=== PATIENT | female | born 1965 | race Two or more races ===

== ENCOUNTER 2024-11-12 20:43 | Emergency (ER) | payer MEDICAID, SELFPAY ==
[2024-11-12 20:47] VITALS: PULSE 74; RESP 16; O2SAT 98
[2024-11-12 20:49] VITALS: BP 106/73; PULSE 72; RESP 17; TEMP 36.9; O2SAT 94
[2024-11-12 20:50] VITALS: BMI 38.3
--- NOTE | 2024-11-12 20:59 | EKG_ITS ---
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
--- NOTE | 2024-11-12 21:03 | XR_ITS ---
Examination: AP chest single view Technique: AP portable upright chest single view Exam date and time: November 12, 2024 2137 hrs. Comparison March 17, 2024 Indications: Onset shortness of breath today. Findings: Stable 18 mm pulmonary nodule left upper lobe Mild enlargement cardiac contour No lobar pneumonia or pulmonary edema Prominent osteopenia Impression: Mild enlargement cardiac contour No interval pneumonia or pulmonary edema
[2024-11-12 21:44] LABS: Basophils % (Auto) 0 % (0-2.5); Eosinophils # (Auto) 0.1 Thou/mm3 (0.0-0.5); Eosinophils % (Auto) 2 % (0-10); Hematocrit 33.8 % (36.0-46.0); Hemoglobin 11.3 g/dL (12.0-16.0); Immature Granulocytes % (Auto) 0 % (0-0); Immature Granulocytes Auto 0.02 Thou/mm3 (0.00-0.00); Lymphocytes # (Auto) 1.8 Thou/mm3 (1.0-4.8); Lymphocytes % (Auto) 25 % (10-50); Mean Corpuscular HGB Conc 33.4 g/dl (31.0-37.0); Mean Corpuscular Hemoglobin 32.8 pg (25.0-35.0); Mean Corpuscular Volume 98 fL (80-100); Monocytes # (Auto) 0.6 Thou/mm3 (0.0-0.8); Monocytes % (Auto) 8 % (0-12); Neutrophils # (Auto) 4.7 Thou/mm3 (1.8-7.7); Neutrophils % (Auto) 65 % (37-80); Nucleated Red Blood Cell % 0 /100 WBC (0); Platelet Count 169 Thou/mm3 (140-440); RDW Standard Deviation 44.1 fL (36.4-46.3); Red Blood Count 3.44 Miln/mm3 (4.00-5.20); White Blood Count 7.3 Thou/mm3 (3.6-11.0)
[2024-11-12 22:04] LABS: Troponin I < 0.020 ng/mL (0.0-0.045)
[2024-11-12 22:06] LABS: Alanine Aminotransferase 23 U/L (10-49); Albumin, Serum 4.1 gm/dL (3.5-5.0); Albumin/Globulin Ratio 1.1 (1.2-2.2); Alkaline Phosphatase 109 U/L (46-116); Anion Gap 9 (7-16); Aspartate Amino Transferase 28 U/L (0-34); BUN/Creatinine Ratio 7 Ratio (12-20); Bilirubin,Total < 0.2 mg/dL (0.3-1.2); Blood Urea Nitrogen 25 mg/dL (9-23); Calcium 9.3 mg/dL (8.3-10.6); Calcium (Corrected) 9.3 mg/dL (8.5-10.1); Carbon Dioxide 30.5 mMol/L (20.0-31.0); Chloride 100 mMol/L (98-107); Creatinine (Component) 3.7 mg/dL (0.6-1.3); Estimated Creatinine Clearance 17.1 mL/min (>60); Globulin 3.6 gm/dL (2.3-3.5); Glucose 187 mg/dL (74-106); Osmolality,Calculated 286 (275-295); Potassium 4.4 mMol/L (3.4-5.1); Sodium 139 mMol/L (136-145); Total Protein 7.7 gm/dL (5.7-8.2); eGFR 14 See Note
--- NOTE | 2024-11-12 22:18 | PD.EDCHEST ---
ED Chest Pain RME/HPI General Chief Complaint: Chest Pain Stated Complaint: CHEST PAIN Time Seen by Provider: 11/12/24 20:49 Arrival date/time: 11/12/24 20:43 RME / HPI RME / HPI narrative: This section includes all my notes and documentations, including HPI, PE, and ED course. David Lu MD HPI: 59-year-old female here to be evaluated with chest pain about 12 hours ago that lasted for about a minute. Currently, she has no chest pain. No shortness of breath. No other complaints. ROS: All negative except as documented in HPI. Physical Exam: General: Alert and oriented. No acute distress when remaining still. Eyes: Conjunctivae and lids clear. ENT: No nasal congestion. Neck: Supple. Heart: RRR. Lungs: No respiratory distress. Good air movement. No rhonchi, wheezing, rales. Abdomen: Soft and nontender. Normal bowel sounds. No distension. No rebound or guarding. Back: No CVA tenderness. Skin: Warm and dry. Neuro: Alert and oriented X 3. I reviewed all diagnostic test results. My interpretation of the EKG is sinus rhythm with no acute ST?T changes. My interpretation of the chest x-ray is no acute findings. Blood tests unremarkable, including no troponin. At this point, diagnoses include brief chest pain about 12 hours ago. Recommended more outpatient cardiac workup. Based on my best medical judgment, made decision no further evaluation or treatment indicated at this time. Patient understands and agrees to the discharge instructions customized and printed, see below. Discharge instructions from Dr. Lu: 1. After extensive evaluation, there is no life-threatening condition.? Such as heart attack. 2. Your pain can be originating from the chest wall and not from an internal organ.? The chest wall has many joints and muscles between the ribs, so sprains and strains are common.?? 3. Apply ice or heat if helpful.? Tylenol/ibuprofen as needed. 4. See a private doctor on 11/14/2024 for recheck. Ask to review all test results and official radiology reports, to make sure you receive all necessary follow-ups and monitoring, including repeating kidney function. To make sure there is no serious underlying heart condition, ask to help you get more tests for your heart that cannot be done here in the ER.? Such as Holter Monitor (cardiac monitoring at home from a day to even a month), heart stress test (on treadmill or with medication), echocardiogram (imaging of your heart structures), heart catherization (checking for blockages in your heart arteries), and a referral to see a Local Announcer.? 5. Seek immediate medical care with worsening or with any concerns.?? David Lu MD Related Data Home Medications ?Medication ?Instructions ?Recorded ?Confirmed atorvastatin 40 mg tablet 40 mg PO HS 12/10/22 09/02/23 calcium acetate(phosphat bind) 667 667 mg PO TID 12/10/22 09/02/23 mg tablet hydroxyzine HCl 25 mg tablet 50 mg PO QID 12/10/22 09/02/23 rivaroxaban 20 mg tablet (Xarelto) 20 mg PO DAILY 12/10/22 09/02/23 acetaminophen 325 mg tablet 650 mg PO PRN PRN Mild Pain (Scale 01/10/23 09/02/23 (Tylenol) Score 1-4) melatonin 3 mg capsule 3 mg PO HS PRN Insomnia 01/10/23 09/02/23 B-complex with vitamin C 1 tab PO QDAY 03/25/23 09/02/23 clonidine HCl 0.1 mg tablet 0.1 mg PO HS 03/25/23 09/02/23 ergocalciferol (vitamin D2) 62.5 See Rx Instructions .Route .COMPLEX 03/25/23 09/02/23 mcg (2,500 unit) capsule hydralazine 100 mg tablet 100 mg PO TID 03/25/23 09/02/23 insulin glargine 100 unit/mL (3 10 unit subcut QPM 03/25/23 09/02/23 mL) subcutaneous pen (Lantus Solostar U-100 Insulin) ondansetron HCl 4 mg tablet 4 mg PO Q6H PRN Nausea And Vomiting 03/25/23 09/02/23 tramadol 50 mg tablet 50 mg PO [id number] PRN Moderate Pain 03/25/23 09/02/23 (Scale Score 5-6) carvedilol 3.125 mg tablet (Coreg) 3.125 mg PO BID 09/02/23 09/02/23 docusate sodium 100 mg tablet 100 mg PO QDAY 09/02/23 09/02/23 insulin aspart U-100 100 unit/mL 1 sliding scale dose subcut 09/02/23 09/02/23 subcutaneous cartridge USEASDIRECTD Previous Rx's ?Medication ?Instructions ?Recorded amlodipine 10 mg tablet (Norvasc) 10 mg PO QDAY #30 tabs 12/11/22 meclizine 25 mg tablet 25 mg PO TID PRN Vertigo #90 tabs 12/18/22 cephalexin 500 mg capsule 500 mg PO BID #14 caps 03/19/24 cephalexin 500 mg capsule 500 mg PO BID #14 caps 03/19/24 ondansetron 4 mg disintegrating 4 mg PO Q8H PRN nausea and 03/19/24 tablet vomiting #10 tabs Allergies Allergy/AdvReac Type Severity Reaction Status Date / Time levofloxacin Allergy Mild Vomiting Verified 11/12/24 21:01 Course Quality Measures none Orders Category Date Time Status Bedside COVID-19 Antigen Test NOW Care 11/12/24 21:03 Completed Bedside Influenza A&B Antigen Test NOW Care 11/12/24 21:03 Completed EKG (ED ONLY) *Do not use* NOW Care 11/12/24 20:59 Completed Straight [In and Out Catheter] X1 Care 11/12/24 21:03 Completed EKG (ED Only) Stat Exams 11/12/24 20:59 Draft XR chest 1V portable Stat Exams 11/12/24 21:03 Completed CBC Stat Lab 11/12/24 21:30 Completed CMP [Comprehensive Metabolic Panel] Stat Lab 11/12/24 21:30 Completed Magnesium Stat Lab 11/12/24 21:30 Completed Troponin I Stat Lab 11/12/24 21:30 Completed Vital Signs Vital signs: Vital Signs Temperature 98.4 F 11/12/24 20:49 Pulse Rate 72 11/12/24 20:49 Respiratory Rate 17 11/12/24 20:49 Blood Pressure 106/73 11/12/24 20:49 Pulse Oximetry (%) 94 L 11/12/24 20:49 Oxygen Delivery Method Room Air 11/12/24 20:49 Chest Pain Patient data [facility], EMS form and [facility] Clinical information provided by:: patient and EMS Social determinants that could affect healthcare access:: other (specify) (detention patient) Patient has the following chronic illnesses:: Hypertension and diabetes and chronic renal failure How is presenting disease/condition affected by chronic disease/condition?: uneffected by Evaluation data The following diagnostics were reviewed and interpreted by me:: lab results, radiology exam(s) and EKG tracing(s) (My interpretation of the EKG: NSR (63 bpm) with no ST-T changes. David Lu MD) Lab and/or radiology exams considered but not ordered:: None Interpretation Summary: Normal diagnostics Medications / Prescriptions Medications or Prescriptions considered but not ordered:: None Medication administrations:: None Consultations Consultation(s) initiated? (list below): No Diagnosis Chest Pain Differential Diagnosis: pneumothorax, stable angina, unstable angina pectoris, atypical chest pain, st elevation myocardial infarction and costochondritis Most likely diagnosis given after review of the tests above:: Brief chest pain of unclear etiology Admission Indicated Admission indicated?: not indicated Explain why admission is indicated or not indicated:: No admission criteria Admission Request Was there a request for admission?: No Disposition Plan Disposition Plan: Discharge Discharge Attestation Discharge Attestation: The patient and all family members were given an opportunity to ask questions and understood the discharge instructions. Discharge instructions specifically effects, indications for sooner follow up or return to the emergency department, and the expected course of current diagnosis. Patient condition: Stable Discharge Plan Plan Patient Disposition: HOME (Self Care) Prescriptions/Referrals Prescriptions/Med Rec: No Action atorvastatin 40 mg tablet 40 mg PO HS calcium acetate(phosphat bind) 667 mg tablet 667 mg PO TID hydroxyzine HCl 25 mg tablet 50 mg PO QID Xarelto 20 mg tablet 20 mg PO DAILY amlodipine [Norvasc] 10 mg tablet 10 mg PO QDAY Qty: 30 0RF meclizine 25 mg Tablet 25 mg PO TID MDD 100mg PRN (Reason: Vertigo) Qty: 90 0RF acetaminophen [Tylenol] 325 mg Tablet 650 mg PO PRN PRN (Reason: Mild Pain (Scale Score 1-4)) melatonin 3 mg Capsule 3 mg PO HS PRN (Reason: Insomnia) cephalexin 500 mg capsule 500 mg PO BID Qty: 14 0RF ondansetron 4 mg tablet,disintegrating 4 mg PO Q8H PRN (Reason: nausea and vomiting) Qty: 10 0RF cephalexin 500 mg capsule 500 mg PO BID Qty: 14 0RF clonidine HCl 0.1 mg Tablet 0.1 mg PO HS tramadol 50 mg Tablet 50 mg PO [id number] PRN (Reason: Moderate Pain (Scale Score 5-6)) hydralazine 100 mg Tablet 100 mg PO TID B-complex with vitamin C Tablet 1 tab PO QDAY insulin glargine [Lantus Solostar U-100 Insulin] 100 unit/mL (3 mL) Insulin Pen 10 unit SUBCUT QPM ergocalciferol (vitamin D2) 62.5 mcg (2,500 unit) Capsule See Rx Instructions .ROUTE .COMPLEX Rx Instructions: 62.5 mcg orally DAILY ON SUNDAYS ondansetron HCl 4 mg Tablet 4 mg PO Q6H PRN (Reason: Nausea And Vomiting) carvedilol [Coreg] 3.125 mg Tablet 3.125 mg PO BID Rx Instructions: must administer with a meal/food docusate sodium 100 mg Tablet 100 mg PO QDAY insulin aspart U-100 100 unit/mL Cartridge 1 sliding scale dose SUBCUT USEASDIRECTD Problem List Clinical Impression: Chest pain Patient/Caregiver Discharge Instructions Discharge Activity: activity as tolerated Education Materials: ED Chest Pain, Uncertain Cause Additional Instructions: Discharge instructions from Dr. Lu: 1. After extensive evaluation, there is no life-threatening condition.? Such as heart attack. 2. Your pain can be originating from the chest wall and not from an internal organ.? The chest wall has many joints and muscles between the ribs, so sprains and strains are common.?? 3. Apply ice or heat if helpful.? Tylenol/ibuprofen as needed. 4. See a private doctor on 11/14/2024 for recheck. Ask to review all test results and official radiology reports, to make sure you receive all necessary follow-ups and monitoring, including repeating kidney function. To make sure there is no serious underlying heart condition, ask to help you get more tests for your heart that cannot be done here in the ER.? Such as Holter Monitor (cardiac monitoring at home from a day to even a month), heart stress test (on treadmill or with medication), echocardiogram (imaging of your heart structures), heart catherization (checking for blockages in your heart arteries), and a referral to see a Local Announcer.? 5. Seek immediate medical care with worsening or with any concerns.?? Print Language: Tongan Stand Alone Forms: [employer] Award Info., Patient Portal Info Letter
[2024-11-12 23:14] VITALS: BP 149/72; PULSE 62; RESP 18; TEMP 36.8; O2SAT 98
== END 2024-11-13 00:10 | disposition home or self-care (01) ==
PROVIDERS: Emergency Provider Emergency Medicine
DX: R07.9 Chest pain, unspecified (principal); I12.9 Hypertensive chronic kidney disease with stage 1 through stage 4 chronic kidney disease, or unspecified chronic kidney disease; E11.22 Type 2 diabetes mellitus with diabetic chronic kidney disease; N18.9 Chronic kidney disease, unspecified
CPT/HCPCS: 36415; 71045; 80053; 81001; 83735; 84484; 85025; 87400; 87811; 93005; 99283

== ENCOUNTER 2025-01-29 07:59 | Emergency (ER) | payer MEDICAID, SELFPAY ==
[2025-01-29 08:02] VITALS: BP 152/70; PULSE 74; RESP 17; TEMP 37.7; O2SAT 94
[2025-01-29 08:07] VITALS: PULSE 76; RESP 20; O2SAT 98
--- NOTE | 2025-01-29 08:17 | PC.NURSE ---
Patient BIBA from SNF due to [place] and nausea since yesterday. Patient states they only gave her meclizine, that gave her relief, yesterday.A&O X4 GCS 15. Patient has hx of CVA, and is legally blind. POC updated.
--- NOTE | 2025-01-29 08:31 | PD.EDHA ---
ED Headache RME/HPI General Chief Complaint: Headache Stated Complaint: HEADACHE Time Seen by Provider: 01/29/25 08:23 Arrival date/time: 01/29/25 07:59 Limitations: no limitations RME / HPI RME / HPI Narrative: 60 year old female with history of CVA, CKD, hypertension and diabetes, presented to the ER BIBA with a chief complaint of [place] accompanied with pressure in front of head, back of head and neck. Per patient, she had been experiencing a new onset pressure in the front/back of the head and neck since yesterday on 01/28/25. Patient stated she has been vomiting due to her pressure and has mucus drainage from her throat and nose when leaning her head forward. Patient also had a complaint of shadows in her left eye but state she is legally blind. Patient denies previous history of falls and migraines. Patient denies fever, cough and chest pain. Patient state no other complaints. Related Data Home Medications ?Medication ?Instructions ?Recorded ?Confirmed atorvastatin 40 mg tablet 40 mg PO HS 12/10/22 09/02/23 calcium acetate(phosphat bind) 667 667 mg PO TID 12/10/22 09/02/23 mg tablet hydroxyzine HCl 25 mg tablet 50 mg PO QID 12/10/22 09/02/23 rivaroxaban 20 mg tablet (Xarelto) 20 mg PO DAILY 12/10/22 09/02/23 acetaminophen 325 mg tablet 650 mg PO PRN PRN Mild Pain (Scale 01/10/23 09/02/23 (Tylenol) Score 1-4) melatonin 3 mg capsule 3 mg PO HS PRN Insomnia 01/10/23 09/02/23 B-complex with vitamin C 1 tab PO QDAY 03/25/23 09/02/23 clonidine HCl 0.1 mg tablet 0.1 mg PO HS 03/25/23 09/02/23 ergocalciferol (vitamin D2) 62.5 See Rx Instructions .Route .COMPLEX 03/25/23 09/02/23 mcg (2,500 unit) capsule hydralazine 100 mg tablet 100 mg PO TID 03/25/23 09/02/23 insulin glargine 100 unit/mL (3 10 unit subcut QPM 03/25/23 09/02/23 mL) subcutaneous pen (Lantus Solostar U-100 Insulin) ondansetron HCl 4 mg tablet 4 mg PO Q6H PRN Nausea And Vomiting 03/25/23 09/02/23 tramadol 50 mg tablet 50 mg PO [id number] PRN Moderate Pain 03/25/23 09/02/23 (Scale Score 5-6) carvedilol 3.125 mg tablet (Coreg) 3.125 mg PO BID 09/02/23 09/02/23 docusate sodium 100 mg tablet 100 mg PO QDAY 09/02/23 09/02/23 insulin aspart U-100 100 unit/mL 1 sliding scale dose subcut 09/02/23 09/02/23 subcutaneous cartridge USEASDIRECTD Previous Rx's ?Medication ?Instructions ?Recorded amlodipine 10 mg tablet (Norvasc) 10 mg PO QDAY #30 tabs 12/11/22 meclizine 25 mg tablet 25 mg PO TID PRN Vertigo #90 tabs 12/18/22 cephalexin 500 mg capsule 500 mg PO BID #14 caps 03/19/24 cephalexin 500 mg capsule 500 mg PO BID #14 caps 03/19/24 ondansetron 4 mg disintegrating 4 mg PO Q8H PRN nausea and 03/19/24 tablet vomiting #10 tabs gabapentin 300 mg capsule 300 mg PO QDAY #14 caps 01/29/25 prednisone 10 mg tablet See Taper PO QDAY #24 tabs 01/29/25 Allergies Allergy/AdvReac Type Severity Reaction Status Date / Time levofloxacin Allergy Mild Vomiting Verified 11/12/24 21:01 Review of Systems Review of Systems Systems Reviewed: All systems reviewed, normal except as documented Narrative Review of Systems: Gen: No fever, no chills, no weight loss EYES: No discharge, + shadowed visual changes in left eye (legally blind), no pain HEENT: No ear pain, +mucus drainage from throat and nose, no sore throat, +pressure in front/back of head and neck PULM: No shortness of breath, no cough, no congestion CV: No chest pain, no dyspnea on exertion, no palpitations GI: +nausea, +vomiting, no diarrhea, no pain, no constipation : No frequency, no urgency, no dysuria Musc/skel: No joint pain, no back pain Skin: No rash Psyc: No hallucinations, no depression Heme/Lymph: No easy bleeding or bruising tendencies Neuro: No weakness, + headache with pressure Past Medical History Past Medical History NEUROLOGIC: Positive Neurological Disorders and Cerebrovascular Accident (mild left sided weakness) CARDIAC: Positive Cardiac Disorders, Angina, Hypercholesterolemia, Congestive Heart Failure and Hypertension RESPIRATORY: Positive Pneumonia GENITOURINARY: Positive Genitourinary Disorders, Renal Disease and Dialysis (MWF) REPRODUCTIVE: Positive Previous Pregnancies MUSCULOSKELETAL: Positive Musculoskeletal Disorders, Arthritis, Rheumatoid Arthritis and Osteoporosis ENT: Positive Blind (Bilateral, sees shadows only) and Deafness (Left) ENDOCRINE: Positive Endocrine Disorders and Diabetes Mellitus Type 2 HEMATOLOGIC: Positive Blood Disorders and Anemia PSYCHO/SOCIAL: Positive Depression and Anxiety OTHER HISTORY: Positive Hospitalization, Blood Transfusions, Chicken Pox and Measles Family History FAMILY HISTORY: Positive Family Cardiac Disorders Surgical History SURGICAL: Positive Open Reduction Internal Fixation (Left thigh has a metal plate); Negative Mastectomy Social History SMOKING STATUS: Never smoker SUBSTANCE USE: former substance user (quit 2 years ago (nonspecific on what she used)) ED Exam General Limitations: Present no limitations General appearance: Present alert and in no apparent distress Head Head exam: Present atraumatic Eye Eye exam: Present normal appearance, PERRL and EOMI; Absent nystagmus ENT ENT exam: Present normal exam, normal oropharynx and mucous membranes moist Neck Neck exam: Present normal inspection, full ROM and trachea midline; Absent meningismus Chest Chest inspection: Present normal inspection and symmetric chest wall rise Respiratory Respiratory exam: Present normal lung sounds bilaterally Cardiovascular Cardiovascular exam: Present regular rate, normal rhythm and normal heart sounds Abdominal Exam Abdominal exam: Present soft and normal bowel sounds Extremities Exam Extremities exam: Present normal inspection and full ROM Back Exam Back exam: Present normal inspection and full ROM Neurological Exam Neurological exam: Present alert, oriented X3, CN II-XII intact and reflexes normal; Absent motor sensory deficit Psychiatric Psychiatric exam: Present normal affect and normal mood Skin Skin exam: Present warm, dry, intact and normal color Course Quality Measures none Orders Category Date Time Status Discharge Routine Discharge 01/29/25 11:[address] head/brain wo con Stat Exams 01/29/25 08:31 Completed CBC Stat Lab 01/29/25 09:58 Completed CMP [Comprehensive Metabolic Panel] Stat Lab 01/29/25 09:58 Completed ESR [Sed Rate (ESR)] Stat Lab 01/29/25 09:58 Completed UA, C/S IF [Urinalysis, C/S if Indicated] Stat Lab 01/29/25 12:44 Completed Urine Culture Stat Lab 01/29/25 12:44 Received Acetaminophen Ivpb [Ofirmev Inj] Med 01/29/25 11:18 Discontinued 1,000 mg in 100 ml IV X1 DiphenhydrAMINE INJ [Benadryl Inj] Med 01/29/25 08:36 Discontinued 25 mg IM X1 ONE Metoclopramide Inj [Reglan Inj] Med 01/29/25 08:45 Active 5 mg IM Q8HR dexAMETHasone TAB [Decadron Tab] Med 01/29/25 11:18 Discontinued 8 mg PO X1 ONE hydrALAZINE INJ [Apresoline Inj] Med 01/29/25 16:47 Discontinued 20 mg IV X1 ONE Reevaluation(s) Reevaluation #1: Patient is still in pain. Pain medication of IV-Tylenol will be administered. Patient will be discharged with Gabapentin. Time: 11:16 Vital Signs Vital signs: Vital Signs Temperature 99.8 F 01/29/25 08:02 Pulse Rate 74 01/29/25 08:02 Respiratory Rate 17 01/29/25 08:02 Blood Pressure 152/70 H 01/29/25 08:02 Pulse Oximetry (%) 94 L 01/29/25 08:02 Oxygen Delivery Method Room Air 01/29/25 08:02 Headache MDM Narrative MDM Narrative:: IAn am scribing for and in the presence of Dr. Gutierres. Patient's symptoms of following Visual symptoms with decreased vision Positive balance of the right eye Headache on the right side Tenderness in the right temporal area Elevated sed rate at 71 History of bilateral lung cavities which is undiagnosed All the symptoms pointing toward possible involvement of the vascular structure in the form of giant cell arthritis All could be other forms of arthritis I think is worth to try to do a temporal artery biopsy Also plan on steroid to see how she responds to steroid She was given already a dose of steroid today in the form of 8 mg of dexamethasone I spoke with the resident on-call today and she will be evaluated in the ER to make a final decision determination whether to admit overnight I think is worth it to admit her and obtain a biopsy of the temporal artery and put on a tapered dose of steroid before discharging her Final assessment Possible giant cell arthritis ESRD on hemodialysis Decreased vision and visual symptoms in the right eye I discussed the case with the residents who discussed the case with the attending on-call. Because we do not have capacity to biopsy of the temporal artery here Other alternative was to discharge patient on steroids and have her do this as an outpatient Patient was given hydralazine 20 mg IV to control blood pressure as she has been here in the ER for long time Get a chance to take her medications Also she was given the first dose of dexamethasone today She was given total of 8 days of prednisone starting with 60 mg a day for 2 days and then 40 mg a day for 2 days and then 20 g a day for 2 days and then 10 mg a day for 2 days Patient advised to follow-up with her physician to get a biopsy of the temporal artery Also this can be treated with outpatient with sed rate evaluation Does not have to be a biopsy specially with her condition specially that she has issues with her vision and mobility Could be difficult for her to do the biopsy Patient probably need to be on low-dose prednisone for a long time Patient was discharged good condition Patient data External records reviewed:: [facility] previous records Clinical information provided by:: patient Social determinants that could affect healthcare access:: none Patient has the following chronic illnesses:: CVA, CKD, hypertension and diabetes How is presenting disease/condition affected by chronic disease/condition?: exacerbated by Evaluation data The following diagnostics were reviewed and interpreted by me:: lab results and radiology exam(s) Lab and/or radiology exams considered but not ordered:: none Interpretation Summary: Ordering Physician: Alethea Gutierres MD Date of Service: 01/29/25 Procedure(s): CT head/brain wo con Accession Number(s): [id number] cc: Alethea Gutierres MD; Rickie Amanda MD; Augusto Ball MD~ Examination: CT brain head without contrast. 2-D sagittal coronal reconstructions Date and time of exam:January 29, 2025, 0912 hrs. Indications: Onset dizziness beginning this morning CTDI: vol (mGy):51 DLP: (mGycm):1055 Technique: Multiple CT axial sections of the brain have been obtained, 5 mm slice thickness. Contrast has not been administered. 2-D sagittal, coronal reconstructions have been obtained Low dose protocols were performed. One or more of the following dose reduction techniques were used; automated exposure control, adjustment of the mA and/or KV according to patient size, use of iterative reconstruction technique. Findings: No significant ventricular enlargement. Intra-axial or extra-axial hemorrhage density is not seen. No mass effect or midline shift Basal cisterns are not remarkable. Fourth ventricle is midline. Cranial vault intact. Impression: Negative for acute hemorrhage, mass effect or midline shift Advise clinical correlation and follow-up accordingly Dictated By: Augusto Ball MD Signed By: <Electronically signed by Augusto Ball MD in [place]> 01/29/25 0930 Medications / Prescriptions Medications or Prescriptions considered but not ordered:: none Medication administrations:: Medication Administration History Metoclopramide HCl (Metoclopramide Inj 5 Mg/Ml Vial 2 Ml) 5 mg IM Q8HR OLY; Protocol Stop: 02/28/25 08:44 Last Admin: 01/29/25 08:54 Dose: 5 mg Documented By: ER Discontinued Medications Dexamethasone (Dexamethasone 4 Mg Tablet) 8 mg PO X1 ONE; Protocol Stop: 01/29/25 11:19 Last Admin: 01/29/25 12:11 Dose: 8 mg Documented By: ER Diphenhydramine HCl (Diphenhydramine Inj 50 Mg/Ml Vial) 25 mg IM X1 ONE Stop: 01/29/25 08:37 Last Admin: 01/29/25 08:54 Dose: 25 mg Documented By: ER Hydralazine HCl (Hydralazine Inj 20 Mg/Ml Vial) 20 mg IV X1 ONE Stop: 01/29/25 16:48 Acetaminophen (Ofirmev Inj) 1,000 mg in 100 mls @ 250 mls/hr IV X1 ONE Stop: 01/29/25 11:41 Last Infusion: 01/29/25 12:38 Dose: Infused Documented By: Admin: 01/29/25 12:14 Dose: 250 mls/hr Documented By: ER see above. (if any) Consultations Consultation(s) initiated? (list below): No Diagnosis Differential diagnosis headache: migraine, tension headache, subarachnoid hemorrhage, headache and sinusitis Most likely diagnosis given after review of the tests above:: migraine Admission Indicated Admission indicated?: not indicated Admission Request Was there a request for admission?: No Disposition Plan Disposition Plan: Discharge Discharge Attestation Discharge Attestation: The patient and all family members were given an opportunity to ask questions and understood the discharge instructions. Discharge instructions specifically effects, indications for sooner follow up or return to the emergency department, and the expected course of current diagnosis. Patient condition: Stable Discharge Plan Plan Patient Disposition: HOME (Self Care) Patient condition on transfer: Stable Prescriptions/Referrals Prescriptions/Med Rec: New gabapentin 300 mg capsule 300 mg PO QDAY Qty: 14 0RF prednisone 10 mg tablet See Taper PO QDAY Qty: 24 0RF Taper: Prednisone Taper 60 mg DAILY for 2 Days and 0 Hour 40 mg DAILY for 2 Days and 0 Hour 20 mg DAILY for 2 Days and 0 Hour 10 mg DAILY for 2 Days and 0 Hour Rx Instructions: 6 tablets a day for 2 days then 4 tabs a day for 2 days then 2 tablets a day for 2 days then 1 tablet a day for 2 days No Action atorvastatin 40 mg tablet 40 mg PO HS calcium acetate(phosphat bind) 667 mg tablet 667 mg PO TID hydroxyzine HCl 25 mg tablet 50 mg PO QID Xarelto 20 mg tablet 20 mg PO DAILY amlodipine [Norvasc] 10 mg tablet 10 mg PO QDAY Qty: 30 0RF meclizine 25 mg Tablet 25 mg PO TID MDD 100mg PRN (Reason: Vertigo) Qty: 90 0RF acetaminophen [Tylenol] 325 mg Tablet 650 mg PO PRN PRN (Reason: Mild Pain (Scale Score 1-4)) melatonin 3 mg Capsule 3 mg PO HS PRN (Reason: Insomnia) cephalexin 500 mg capsule 500 mg PO BID Qty: 14 0RF ondansetron 4 mg tablet,disintegrating 4 mg PO Q8H PRN (Reason: nausea and vomiting) Qty: 10 0RF cephalexin 500 mg capsule 500 mg PO BID Qty: 14 0RF clonidine HCl 0.1 mg Tablet 0.1 mg PO HS tramadol 50 mg Tablet 50 mg PO [id number] PRN (Reason: Moderate Pain (Scale Score 5-6)) hydralazine 100 mg Tablet 100 mg PO TID B-complex with vitamin C Tablet 1 tab PO QDAY insulin glargine [Lantus Solostar U-100 Insulin] 100 unit/mL (3 mL) Insulin Pen 10 unit SUBCUT QPM ergocalciferol (vitamin D2) 62.5 mcg (2,500 unit) Capsule See Rx Instructions .ROUTE .COMPLEX Rx Instructions: 62.5 mcg orally DAILY ON SUNDAYS ondansetron HCl 4 mg Tablet 4 mg PO Q6H PRN (Reason: Nausea And Vomiting) carvedilol [Coreg] 3.125 mg Tablet 3.125 mg PO BID Rx Instructions: must administer with a meal/food docusate sodium 100 mg Tablet 100 mg PO QDAY insulin aspart U-100 100 unit/mL Cartridge 1 sliding scale dose SUBCUT USEASDIRECTD Referrals: Rickie Amanda MD [Primary Care Provider] - In 1 week Problem List Clinical Impression: Migraine, Temporal arteritis syndrome, Hypertension Patient/Caregiver Discharge Instructions Discharge Activity: activity as tolerated Education Materials: Migraines and Cluster Headaches, Hypertension Dc, ED Temporal Arteritis Print Language: German Stand Alone Forms: [employer] Award Info., Patient Portal Info Letter
[2025-01-29] MEDS: DiphenhydrAMINE INJ 50 MG/ML VIAL 25 MG IM (08:54)
[2025-01-29] MEDS: METOCLOPRAMIDE INJ 5 MG/ML VIAL 2 ML IM (08:54)
[2025-01-29 10:13] LABS: Basophils % (Auto) 0 % (0-2.5); Eosinophils % (Auto) 0 % (0-10); Hematocrit 34.7 % (36.0-46.0); Hemoglobin 11.8 g/dL (12.0-16.0); Immature Granulocytes % (Auto) 1 % (0-0); Immature Granulocytes Auto 0.02 Thou/mm3 (0.00-0.00); Lymphocytes # (Auto) 0.8 Thou/mm3 (1.0-4.8); Lymphocytes % (Auto) 26 % (10-50); Mean Corpuscular Hemoglobin 34.7 pg (25.0-35.0); Mean Corpuscular Volume 102 fL (80-100); Monocytes # (Auto) 0.2 Thou/mm3 (0.0-0.8); Monocytes % (Auto) 6 % (0-12); Neutrophils # (Auto) 2.2 Thou/mm3 (1.8-7.7); Neutrophils % (Auto) 67 % (37-80); Nucleated Red Blood Cell % 0 /100 WBC (0); Platelet Count 165 Thou/mm3 (140-440); RDW Standard Deviation 52.8 fL (36.4-46.3); White Blood Count 3.3 Thou/mm3 (3.6-11.0)
[2025-01-29 10:55] LABS: Alanine Aminotransferase 8 U/L (10-49); Albumin, Serum 3.5 gm/dL (3.5-5.0); Albumin/Globulin Ratio 0.8 (1.2-2.2); Alkaline Phosphatase 84 U/L (46-116); Anion Gap 11 (7-16); Aspartate Amino Transferase 29 U/L (0-34); BUN/Creatinine Ratio 6 Ratio (12-20); Bilirubin,Total 0.3 mg/dL (0.3-1.2); Blood Urea Nitrogen 27 mg/dL (9-23); Calcium 8.3 mg/dL (8.3-10.6); Calcium (Corrected) 8.7 mg/dL (8.5-10.1); Carbon Dioxide 28.3 mMol/L (20.0-31.0); Chloride 98 mMol/L (98-107); Creatinine (Component) 4.5 mg/dL (0.6-1.3); Globulin 4.3 gm/dL (2.3-3.5); Glucose 104 mg/dL (74-106); Osmolality,Calculated 278 (275-295); Potassium 4.5 mMol/L (3.4-5.1); Sodium 137 mMol/L (136-145); Total Protein 7.8 gm/dL (5.7-8.2); eGFR 11 See Note
[2025-01-29 12:00] LABS: Sed Rate (ESR) 72 mm/hr (0-30)
[2025-01-29 12:02] VITALS: BP 194/83; PULSE 80; RESP 18; TEMP 37.9; O2SAT 97
[2025-01-29] MEDS: dexAMETHasone 4 MG TABLET 8 MG PO (12:11)
[2025-01-29] MEDS: ACETAMINOPHEN IVPB 1,000 MG/100 ML VIAL 250 MG IV (12:14)
[2025-01-29 13:14] LABS: Collection Type, Urine Clean Catch
[2025-01-29 13:33] LABS: Bacteria,Urine 4+; Bilirubin,Urine Negative (Negative); Blood,Urine Negative (Negative); Clarity,Urine Turbid (Clear/Hazy); Color,Urine Yellow (Lt Yel-Yel); Glucose, Urine Negative (Negative); Ketones,Urine Negative (Negative); Leukocyte Esterase,Urine Negative (Negative); Nitrite,Urine Positive (Negative); PH,Urine 7.5 (5.0-7.0); Protein,Urine 3+ (Neg - Trace); RBC,Urine 1 /hpf (0-3); Specific Gravity,Urine 1.021 (1.001-1.035); Squamous Epithelial Cell,Urine < 1 /hpf (0-5); Urobilinogen,Urine Negative mg/dL (0.0-1.0); WBC,Urine 2 /hpf (0-5)
[2025-01-29 13:37] LABS: Culture Indicated,Urine Yes
[2025-01-29 15:05] VITALS: BP 172/73; PULSE 65; RESP 17; TEMP 37; O2SAT 95; BMI 37.8
--- NOTE | 2025-01-29 15:30 | PC.CC ---
[employer] contacted [facility] in efforts to coordinate transportation for Pt. [facility] Refrence #[id number].
[2025-01-29 16:55] VITALS: BP 194/89; PULSE 70
[2025-01-29] MEDS: hydrALAZINE INJ 20 MG/ML VIAL IV (16:55)
--- NOTE | 2025-01-29 17:28 | PC.CC ---
[employer] received transport confirmation for [id number].
[2025-01-29 17:40] VITALS: BP 159/77; PULSE 69; RESP 18; TEMP 37; O2SAT 96
== END 2025-01-29 17:43 | disposition home or self-care (01) ==
PROVIDERS: Emergency Provider Emergency Medicine; PCP Hospitalist
DX: G43.909 Migraine, unspecified, not intractable, without status migrainosus (principal); M31.6 Other giant cell arteritis; E11.22 Type 2 diabetes mellitus with diabetic chronic kidney disease; I12.9 Hypertensive chronic kidney disease with stage 1 through stage 4 chronic kidney disease, or unspecified chronic kidney disease; N18.9 Chronic kidney disease, unspecified
CPT/HCPCS: 36415; 70450; 80053; 81001; 85025; 85652; 87086; 96365; 96372; 99284; J0131; J0360; J1200; J2765; J8540

== ENCOUNTER 2025-02-08 12:37 | Emergency (ER) | payer MEDICAID, SELFPAY ==
[2025-02-08 12:44] VITALS: BP 137/67; PULSE 84; RESP 16; TEMP 36.7; O2SAT 95; BMI 39.2
[2025-02-08 13:14] VITALS: PULSE 93
--- NOTE | 2025-02-08 13:31 | XR_ITS ---
Examination: AP chest single view Technique one AP portable upright chest single view Exam date and time: February 08, 2025 1443 hours Comparison November 12, 2024 INDICATIONS: Left flank pain chest pain today. FINDINGS: Probable hair braid over the right upper lobe Scarring in the left upper lobe No interval pneumonia or pulmonary edema IMPRESSION: Recommend repeat AP chest to confirm artifact over the right upper lobe
[2025-02-08 13:55] LABS: Lactate (Lactic Acid) 1.1 mMol/L (0.4-2.0)
[2025-02-08 13:58] LABS: Collection Type, Urine Clean Catch
--- NOTE | 2025-02-08 13:58 | EDNOTE_ITS ---
ED Abdominal Pain RME/HPI General Chief Complaint: Abdominal Pain Stated complaint: CHILLS/ LT FLANK PAIN Time seen by provider: 02/08/25 12:49 Arrival date/time: 02/08/25 12:37 RME / HPI RME / HPI narrative: 60 year old female with history of CVA, CKD, hypertension, diabetes presented to the ER BIBA from dialysis unit with a chief complain of left sided flank pain. Per patient, she started to experience pain coming from her left side of her back, traveling to her left upper abdomen. Patient also complains of chills. Patient also states she previous visited to the ED on 01/29/2025 for a migrine. Patient denies fever, cough, and chest pain. Patient states no other complaints. Related Data Home Medications ?Medication ?Instructions ?Recorded ?Confirmed atorvastatin 40 mg tablet 40 mg PO HS 12/10/22 3 calcium acetate(phosphat bind) 667 667 mg PO TID 12/1009/02/23 mg tablet hydroxyzine HCl 25 mg tablet 50 mg PO QID 12/10/2203/20 rivaroxaban 20 mg tablet (Xarelto) 20 mg PO DAILY 11/2609/02/23 acetaminophen 325 mg tablet 650 mg PO PRN PRN Mild Greg n (Scale 01/10/23 09/02/23 (Tylenol) Score 1-4) melatonin 3 mg capsule 3 mg PO HS PRN Insomnia 12/2709/02/23 B-complex with vitamin C 1 tab PO QDAY 03/25/2309/02 clonidine HCl 0.1 mg tablet 0.1 mg PO HS 03/25/23 1203/20 ergocalciferol (vitamin D2) 62.5 See Rx Instructions . Route .COMPLEX 03/25/23 09/02/23 mcg (2,500 unit) capsule hydralazine 100 mg tablet 100 mg PO TID 03/25/2309/02 insulin glargine 100 unit/mL (3 10 unit subcut QPM 09/02/23 mL) subcutaneous pen (Lantus Solostar U-100 Insulin) ondansetron HCl 4 mg tablet 4 mg PO Q6H PRN Nausea And Vomiting 03/25/23 09/02/23 tramadol 50 mg tablet 50 mg PO [id number] PRN Moderat e Pain 03/25/23 09/02/23 (Scale Score 5-6) carvedilol 3.125 mg tablet (Coreg) 3.125 mg PO BID 03/2009/02/23 docusate sodium 100 mg tablet 100 mg PO QDAY 09/02/23 09/02/23 insulin aspart U-100 100 unit/mL 1 sliding scale dose subcut 09/02/23 09/02/23 subcutaneous cartridge USEASDIRECTD Previous Rx's ?Medication ?Instructions ?Recorded amlodipine 10 mg tablet (Norvasc) 10 mg PO QDAY #30 ta bs 12/11/22 meclizine 25 mg tablet 25 mg PO TID PRN Vertigo #90 tabs 12/18/22 cephalexin 500 mg capsule 500 mg PO BID #14 caps 03/19 cephalexin 500 mg capsule 500 mg PO BID #14 caps 03/19 ondansetron 4 mg disintegrating 4 mg PO Q8H PRN nausea and 03/19/24 tablet vomiting #10 tabs gabapentin 300 mg capsule 300 mg PO QDAY #14 caps 0501/20 prednisone 10 mg tablet See Taper PO QDAY #24 tabs 0 01/29/25 Allergies Allergy/AdvReac Type Severity Reaction Status Date / Time levofloxacin Allergy Mild Vomiting Verified 11/12/24 21:01 Review of Systems Review of Systems Systems Reviewed: All systems reviewed, normal except as documented Narrative Review of Systems: Gen: No fever, +chills, no weight loss EYES: No discharge, no visual changes, no pain HEENT: No ear pain, no congestion, no sore throat PULM: No shortness of breath, no cough, no congestion CV: No chest pain, no dyspnea on exertion, no palpitations GI: No nausea, no vomiting, no diarrhea, + upper left abdomen pain, no constipation : No frequency, no urgency, no dysuria Musc/skel: No joint pain, + flank pain Skin: No rash Psyc: No hallucinations, no depression Heme/Lymph: No easy bleeding or bruising tendencies Neuro: No weakness, no headache Past Medical History Past Medical History NEUROLOGIC: Positive Neurological Disorders and Cerebrovascular Accident (mild left sided weakness) CARDIAC: Positive Cardiac Disorders, Angina, Hypercholesterolemia, Congestive Heart Failure and Hypertension RESPIRATORY: Positive Pneumonia GENITOURINARY: Positive Genitourinary Disorders, Renal Disease and Dialysis (MWF) REPRODUCTIVE: Positive Previous Pregnancies MUSCULOSKELETAL: Positive Musculoskeletal Disorders, Arthritis, Rheumatoid Arthritis and Osteoporosis ENT: Positive Blind (Bilateral, sees shadows only) and Deafness (Left) ENDOCRINE: Positive Endocrine Disorders and Diabetes Mellitus Type 2 HEMATOLOGIC: Positive Blood Disorders and Anemia PSYCHO/SOCIAL: Positive Depression and Anxiety OTHER HISTORY: Positive Hospitalization, Blood Transfusions, Chicken Pox and Measles Family History FAMILY HISTORY: Positive Family Cardiac Disorders Surgical History SURGICAL: Positive Open Reduction Internal Fixation (Left thigh has a metal plate); Negative Mastectomy Social History SMOKING STATUS: Never smoker SUBSTANCE USE: former substance user (quit 2 years ago (nonspecific on what she used)) ED Exam Narrative Physical exam: GENERAL APPEARANCE: alert and oriented x 4, well-developed, well-nourished, no acute distress, obese HEENT: Normocephalic, atraumatic; pupils equal, round, reactive to light; EOMI; mucous membranes pink, moist; oropharynx clear NECK: Supple LUNGS: CTABL; no wheezes, no rales, no rhonchi HEART: Regular rate, regular rhythm; normal S1, S2; no murmurs ABDOMEN: non distended; normal BS; soft, no tenderness, no guarding, no rebound; no masses, no organomegaly, no hernia BACK: no CVA tenderness EXTREMITIES: atraumatic; no edema NEUROLOGIC: awake; alert and oriented x4; cranial nerves II-XII grossly intact; no focal sensory or motor deficits PSYCHIATRIC: appropriate mood and affect SKIN: warm, dry, normal color; no rashes Course Course Course Narrative: 1800: Patient signed out to Dr. Lu pending CT report, c.diff, and final disposition. Quality Measures none Orders Category Date Time Status In and Out Catheter X1 Care 02/08/25 13:[address] abdomen pelvis wo con Stat Exams 02/08/25 16:36 Completed XR abdomen series w chest 1V Stat Exams 02/08/25 13:31 Completed CBC Stat Lab 02/08/25 13:48 Completed Clostridium Difficile PCR Stat Lab 02/08/25 14:25 Received Comprehensive Metabolic Panel Stat Lab 02/08/25 13:48 Completed Lactate (Lactic Acid) Stat Lab 02/08/25 13:48 Completed Lipase Stat Lab 02/08/25 13:48 Completed Magnesium Stat Lab 02/08/25 13:48 Completed Procalcitonin Stat Lab 02/08/25 13:48 Completed UA, C/S IF [Urinalysis, C/S if Indicated] Stat Lab 02/08/25 13:40 Completed Urine Culture Stat Lab 02/08/25 13:40 Received Morphine Inj Med 02/08/25 13:31 Discontinued 5 mg IVP X1 ONE Ondansetron Inj [Zofran Inj] Med 02/08/25 13:31 Discontinued 4 mg IV X1 ONE cefTRIAXone/D5w 1gm IV premix [Rocephin/D5w 1gm IV Med 02/08/25 15:17 Discontinued premix] 1 gm in 50 ml IV X1 Vital Signs Vital signs: Vital Signs Temperature 98.0 F 02/08/25 12:44 Pulse Rate 84 02/08/25 12:44 Respiratory Rate 16 02/08/25 12:44 Blood Pressure 137/67 H 02/08/25 12:44 Pulse Oximetry (%) 95 02/08/25 12:44 Oxygen Delivery Method Room Air 02/08/25 12:44 Pulse ox is 95% on room air which is adequate. Abdominal Pain MDM MDM Narrative MDM Narrative:: IAn am scribing for and in the presence of Dr. Kemp. Patient data External records reviewed:: [facility] previous records Clinical information provided by:: patient Social determinants that could affect healthcare access:: none Patient has the following chronic illnesses:: CVA, CKD, hypertension, diabetes How is presenting disease/condition affected by chronic disease/condition?: exacerbated by Evaluation data The following diagnostics were reviewed and interpreted by me:: lab results and radiology exam(s) Lab and/or radiology exams considered but not ordered:: none. Interpretation Summary: Ordering Physician: Lindsay Kemp MD Date of Service: 02/08/25 Procedure(s): XR abdomen series w chest 1V Accession Number(s): [id number] cc: Rickie Amanda MD; Augusto Ball MD; Lindsay Kemp MD~ Examination: AP chest single view Technique one AP portable upright chest single view Exam date and time: February 08, 2025 1443 hours Comparison November 12, 2024 INDICATIONS: Left flank pain chest pain today. FINDINGS: Probable hair braid over the right upper lobe Scarring in the left upper lobe No interval pneumonia or pulmonary edema IMPRESSION: Recommend repeat AP chest to confirm artifact over the right upper lobe Dictated By: Augusto Ball MD Signed By: <Electronically signed by Augusto Ball MD in OV> 02/08/25 1507 Ordering Physician: Lindsay Kemp MD Date of Service: 02/08/25 Procedure(s): CT abdomen pelvis wo [facility] Accession Number(s): [id number] cc: Rickie Amanda MD; Augusto Ball MD; Lindsay Kemp MD~ Examination: CT abdomen and pelvis without contrast. Coronal 3-D reconstructions. Sagittal 2-D reconstructions. Date and time of exam:February 08, 2025 1731 hours, comparison March 19, 2024 INDICATIONS: Left flank pain and nausea today with hematuria CTDI: vol (mGy): 12.7 DLP: (mGycm): 739 Technique: Axial images of the abdomen have been obtained, 3 mm slice thickness Intravenous contrast material has not been administered. Low dose protocols were performed. One or more of the following dose reduction techniques were used; automated exposure control, adjustment of the mA and/or KV according to patient size, use of iterative reconstruction technique. Findings: Atelectasis versus pneumonia left base with minimal bilateral pleural fluid No visualized liver or splenic lesion Absent gallbladder No pancreatic or adrenal mass Perinephric stranding No renal or ureteral calculi, no hydronephrosis Aorta normal size Normal appendix No bowel obstruction No diverticulitis Atrophic uterus with areas of uterine fundal calcification Mild thickening of the urinary bladder wall up to 3 mm Prominent osteopenia with chronic osteoporotic compression L2 and moderate narrowing hip joints IMPRESSION: Atelectasis versus pneumonia left base, clinical correlation advised Perinephric stranding, consider urinary tract infection No renal or ureteral calculi, no hydronephrosis Normal appendix Mild cystitis pattern Dictated By: Augusto Ball MD Signed By: <Electronically signed by Augusto Ball MD in OV> 02/08/25 1812 Medications / Prescriptions Medications or Prescriptions considered but not ordered:: none. Medication administrations:: Medication Administration History Discontinued Medications Ceftriaxone Sodium/Dextrose (Rocephin/D5w 1gm Iv Premix) 1 gm in 50 mls @ 100 mls/hr IV X1 ONE Stop: 02/08/25 15:46 Last Infusion: 02/08/25 16:32 Dose: Infused Documented By: Admin: 02/08/25 16:02 Dose: 100 mls/hr Documented By: ER Morphine Sulfate (Morphine Sulf Inj 10 Mg/Ml Vial) 5 mg IVP X1 ONE Stop: 02/08/25 13:32 Last Admin: 02/08/25 16:02 Dose: 5 mg Documented By: ER Ondansetron HCl (Ondansetron Inj 2 Mg/Ml Inj 2 Ml) 4 mg IV X1 ONE Stop: 02/08/25 13:32 Last Admin: 02/08/25 16:02 Dose: 4 mg Documented By: ER see above. Consultations Consultation(s) initiated? (list below): No Diagnosis Differential diagnosis abdominal pain: diverticulitis, endometriosis, gastroenteritis and small bowel obstruction Admission Indicated Admission indicated?: not indicated Admission Request Was there a request for admission?: No Disposition Plan Disposition Plan: other (specify) (signed out to Dr. Lu ) Discharge Plan Prescriptions/Referrals Prescriptions/Med Rec: No Action atorvastatin 40 mg tablet 40 mg PO HS calcium acetate(phosphat bind) 667 mg tablet 667 mg PO TID hydroxyzine HCl 25 mg tablet 50 mg PO QID Xarelto 20 mg tablet 20 mg PO DAILY amlodipine [Norvasc] 10 mg tablet 10 mg PO QDAY Qty: 30 0RF meclizine 25 mg Tablet 25 mg PO TID MDD 100mg PRN (Reason: Vertigo) Qty: 90 0RF acetaminophen [Tylenol] 325 mg Tablet 650 mg PO PRN PRN (Reason: Mild Pain (Scale Score 1-4)) melatonin 3 mg Capsule 3 mg PO HS PRN (Reason: Insomnia) cephalexin 500 mg capsule 500 mg PO BID Qty: 14 0RF ondansetron 4 mg tablet,disintegrating 4 mg PO Q8H PRN (Reason: nausea and vomiting) Qty: 10 0RF cephalexin 500 mg capsule 500 mg PO BID Qty: 14 0RF gabapentin 300 mg capsule 300 mg PO QDAY Qty: 14 0RF prednisone 10 mg tablet See Taper PO QDAY Qty: 24 0RF Taper: Prednisone Taper 60 mg DAILY for 2 Days and 0 Hour 40 mg DAILY for 2 Days and 0 Hour 20 mg DAILY for 2 Days and 0 Hour 10 mg DAILY for 2 Days and 0 Hour Rx Instructions: 6 tablets a day for 2 days then 4 tabs a day for 2 days then 2 tablets a day for 2 days then 1 tablet a day for 2 days clonidine HCl 0.1 mg Tablet 0.1 mg PO HS tramadol 50 mg Tablet 50 mg PO [id number] PRN (Reason: Moderate Pain (Scale Score 5-6)) hydralazine 100 mg Tablet 100 mg PO TID B-complex with vitamin C Tablet 1 tab PO QDAY insulin glargine [Lantus Solostar U-100 Insulin] 100 unit/mL (3 mL) Insulin Pen 10 unit SUBCUT QPM ergocalciferol (vitamin D2) 62.5 mcg (2,500 unit) Capsule See Rx Instructions .ROUTE .COMPLEX Rx Instructions: 62.5 mcg orally DAILY ON SUNDAYS ondansetron HCl 4 mg Tablet 4 mg PO Q6H PRN (Reason: Nausea And Vomiting) carvedilol [Coreg] 3.125 mg Tablet 3.125 mg PO BID Rx Instructions: must administer with a meal/food docusate sodium 100 mg Tablet 100 mg PO QDAY insulin aspart U-100 100 unit/mL Cartridge 1 sliding scale dose SUBCUT USEASDIRECTD Referrals: Vasiliy([facility])Rickie MD [Primary Care Provider] - In 1 week Patient/Caregiver Discharge Instructions Print Language: Wolof
[2025-02-08 14:06] LABS: Basophils % (Auto) 0 % (0-2.5); Eosinophils % (Auto) 0 % (0-10); Hematocrit 35.1 % (36.0-46.0); Hemoglobin 11.6 g/dL (12.0-16.0); Immature Granulocytes % (Auto) 1 % (0-0); Immature Granulocytes Auto 0.06 Thou/mm3 (0.00-0.00); Lymphocytes # (Auto) 0.5 Thou/mm3 (1.0-4.8); Lymphocytes % (Auto) 7 % (10-50); Mean Corpuscular Hemoglobin 34.2 pg (25.0-35.0); Mean Corpuscular Volume 104 fL (80-100); Monocytes # (Auto) 0.3 Thou/mm3 (0.0-0.8); Monocytes % (Auto) 4 % (0-12); Neutrophils % (Auto) 88 % (37-80); Nucleated Red Blood Cell % 0 /100 WBC (0); Platelet Count 122 Thou/mm3 (140-440); RDW Standard Deviation 54.1 fL (36.4-46.3); Red Blood Count 3.39 Miln/mm3 (4.00-5.20); White Blood Count 6.8 Thou/mm3 (3.6-11.0)
[2025-02-08 14:15] LABS: Bacteria,Urine 4+; Bilirubin,Urine 1+ (Negative); Blood,Urine 2+ (Negative); Clarity,Urine Turbid (Clear/Hazy); Color,Urine Yellow (Lt Yel-Yel); Glucose, Urine Negative (Negative); Ketones,Urine Negative (Negative); Leukocyte Esterase,Urine Positive (Negative); Nitrite,Urine Negative (Negative); PH,Urine 5.5 (5.0-7.0); Protein,Urine 2+ (Neg - Trace); RBC,Urine 4 /hpf (0-3); Specific Gravity,Urine 1.022 (1.001-1.035); Squamous Epithelial Cell,Urine 1 /hpf (0-5); Urobilinogen,Urine Negative mg/dL (0.0-1.0); WBC,Urine 11 /hpf (0-5)
[2025-02-08 14:16] LABS: Culture Indicated,Urine Yes
[2025-02-08 14:24] LABS: Alanine Aminotransferase 20 U/L (10-49); Albumin, Serum 3.7 gm/dL (3.5-5.0); Albumin/Globulin Ratio 0.9 (1.2-2.2); Alkaline Phosphatase 72 U/L (46-116); Anion Gap 12 (7-16); Aspartate Amino Transferase 39 U/L (0-34); BUN/Creatinine Ratio 5 Ratio (12-20); Bilirubin,Total 0.3 mg/dL (0.3-1.2); Blood Urea Nitrogen 9 mg/dL (9-23); Calcium 8.2 mg/dL (8.3-10.6); Calcium (Corrected) 8.4 mg/dL (8.5-10.1); Carbon Dioxide 29.4 mMol/L (20.0-31.0); Chloride 96 mMol/L (98-107); Creatinine (Component) 1.8 mg/dL (0.6-1.3); Estimated Creatinine Clearance 35.3 mL/min (>60); Glucose 117 mg/dL (74-106); Lipase 29 U/L (12-53); Magnesium 1.7 mg/dL (1.6-2.6); Osmolality,Calculated 273 (275-295); Procalcitonin 0.57 ng/ml (0.0-0.49); Sodium 137 mMol/L (136-145); Total Protein 7.7 gm/dL (5.7-8.2); eGFR 32 See Note
[2025-02-08] MEDS: cefTRIAXone/D5w 1gm IV premix 1 GM/50 ML BAG IV (16:02)
[2025-02-08] MEDS: MORPHINE SULF INJ 10 MG/ML VIAL 5 MG IVP ×2 (16:02→19:17)
[2025-02-08] MEDS: ONDANSETRON INJ 2 MG/ML INJ 2 ML 4 MG IV (16:02)
[2025-02-08 16:05] VITALS: BP 170/73; PULSE 88; RESP 18; TEMP 37; O2SAT 92
--- NOTE | 2025-02-08 16:36 | XR_ITS ---
Examination: CT abdomen and pelvis without contrast. Coronal 3-D reconstructions. Sagittal 2-D reconstructions. Date and time of exam:February 08, 2025 1731 hours, comparison March 19, 2024 INDICATIONS: Left flank pain and nausea today with hematuria CTDI: vol (mGy): 12.7 DLP: (mGycm): 739 Technique: Axial images of the abdomen have been obtained, 3 mm slice thickness Intravenous contrast material has not been administered. Low dose protocols were performed. One or more of the following dose reduction techniques were used; automated exposure control, adjustment of the mA and/or KV according to patient size, use of iterative reconstruction technique. Findings: Atelectasis versus pneumonia left base with minimal bilateral pleural fluid No visualized liver or splenic lesion Absent gallbladder No pancreatic or adrenal mass Perinephric stranding No renal or ureteral calculi, no hydronephrosis Aorta normal size Normal appendix No bowel obstruction No diverticulitis Atrophic uterus with areas of uterine fundal calcification Mild thickening of the urinary bladder wall up to 3 mm Prominent osteopenia with chronic osteoporotic compression L2 and moderate narrowing hip joints IMPRESSION: Atelectasis versus pneumonia left base, clinical correlation advised Perinephric stranding, consider urinary tract infection No renal or ureteral calculi, no hydronephrosis Normal appendix Mild cystitis pattern
--- NOTE | 2025-02-08 18:59 | EDNOTE_ITS ---
Emergency Room Addendum <Clementine Hrenandez - Last Filed: 02/08/25 19:00> Addendum Narrative: I took over the care from Dr. Kemp at 6 PM on 02/08/2025, see her notes for complete H&P and ED course. I reviewed all diagnostic test results. My interpretation of the EKG is My interpretation of the chest x-ray is My review of the CT report is Blood tests and urine tests Based on my best medical judgment, made decision no further evaluation or treatment indicated at this time. Patient understands and agrees to the discharge instructions customized and printed, see below. Discharge instructions from Dr. Lu: 1. After evaluation, you have UTI (see attached handout).? 2. Take cefdinir to kill the germs causing the infection.? Increase oral fluid to flush it out.? Maintain clear urine.? If dark or yellow, increase oral fluid. 3. Help with pain with the [facility] doctor(s). 4. On 02/11/25, ask to check the final urine culture results from today to make sure cefdinir doesn't need to be changed due to resistance. 5. Seek immediate medical care with worsening, fever, or with any concerns. <David Lu MD - Last Filed: 02/08/25 19:04> Addendum Narrative: I took over the care from Dr. Kemp at 6 PM on 02/08/2025, see her notes for complete H&P and ED course. I reviewed all diagnostic test results. Diagnoses include UTI. Treatment here included Rocephin. She felt much better with Rocephin and morphine. Recommended [facility] treatment [facility]. Based on my best medical judgment, made decision no further evaluation or treatment indicated at this time. Patient understands and agrees to the discharge instructions customized and printed, see below. Discharge instructions from Dr. Lu: 1. After evaluation, you have UTI (see attached handout).? 2. Take cefdinir to kill the germs causing the infection.? Increase oral fluid to flush it out.? Maintain clear urine.? If dark or yellow, increase oral fluid. 3. Help with pain with the [facility]iary doctor(s). 4. On 02/11/25, ask to check the final urine culture results from today to make sure cefdinir doesn't need to be changed due to resistance. 5. Seek immediate medical care with worsening, fever, or with any concerns.
[2025-02-08 20:00] VITALS: BP 108/91; PULSE 81; RESP 14; TEMP 37; O2SAT 98
[2025-02-08 22:18] VITALS: BP 145/85; PULSE 85; RESP 14; TEMP 36.9; O2SAT 98
[2025-02-09 09:21] LABS: Clostridium Difficile PCR Negative (Negative)
== END 2025-02-08 22:19 | disposition skilled nursing facility (03) ==
PROVIDERS: Emergency Medicine; Emergency Provider Emergency Medicine; PCP Hospitalist
DX: N39.0 Urinary tract infection, site not specified (principal); Z86.73 Personal history of transient ischemic attack (TIA), and cerebral infarction without residual deficits; E11.22 Type 2 diabetes mellitus with diabetic chronic kidney disease; I12.9 Hypertensive chronic kidney disease with stage 1 through stage 4 chronic kidney disease, or unspecified chronic kidney disease; N18.9 Chronic kidney disease, unspecified
CPT/HCPCS: 51701; 36415; 74022; 74176; 80053; 81001; 83605; 83690; 83735; 84145; 85025; 87086; 87493; 96365; 96375; 96376; 99284; J0696; J2270; J2405

== ENCOUNTER 2025-02-09 22:10 | Emergency (ER) | payer MEDICAID, SELFPAY ==
[2025-02-09 22:23] VITALS: BP 118/72; PULSE 77; RESP 17; TEMP 38.5; O2SAT 93; BMI 38.3
[2025-02-09 22:38] VITALS: BP 106/57; PULSE 83; RESP 18; TEMP 38.9; O2SAT 95
--- NOTE | 2025-02-09 22:40 | PD.EDLOWEX ---
Lower Extremity Injury RME/HPI General Chief Complaint: Extremity Injury, Lower Stated Complaint: LEFT LEG PAIN Time Seen by Provider: 02/09/25 22:50 Arrival date/time: 02/09/25 22:10 RME / HPI RME / HPI Narrative: This section includes all my notes and documentations, including HPI, PE, and ED course. David Lu MD HPI: 60yo female with a history of CHF on 2L/NC, HTN, HLD, DM, ESRD on HD BIBA from [facility] presents to the ED for a chief complaint of LLE pain just prior to arrival. Patient states she was being transferred from the chair to the [facility] when she felt a pop below her calf. No other complaints. ROS: All negative except as documented in HPI. Physical Exam: General: Alert and oriented. No acute distress when remaining still. Eyes: Conjunctivae and lids clear. ENT: No nasal congestion. Neck: Supple. Heart: RRR. Lungs: No respiratory distress. Moderately decreased air movement with wheezing. Abdomen: Soft and nontender. Skin: Warm and dry. Neuro: Alert and oriented X 3. Musculoskeletal: Remarkable for left calf tenderness. I reviewed all diagnostic test results. My interpretation of the EKG is sinus rhythm with no acute ST-T changes. My interpretation of the chest x-ray is no acute findings, official radiology report is pending. My interpretation of tibia fibula x-ray x-rays is no acute fracture, official radiology report is pending. Blood tests unremarkable. COVID and Influenza swabs are negative. At this point, diagnoses include strain of left calf muscle. Treatment here included lidocaine patch. Recommended supportive care. Based on my best medical judgment, made decision no further evaluation or treatment indicated at this time. Patient understands and agrees to the discharge instructions customized and printed, see below. Discharge Instructions from Dr. Lu printed for you: 1. Unfortunately, you sustained tears of your left lower leg muscles. Fortunately, they will heal with rest and proper treatment. 2. Minimal weightbearing and elevate above the waist level and Frank wrap for 4 full days then as needed. Apply ice for 20 minutes every 2-3 hours today and tomorrow. Lidocaine patches as needed. 3. Recheck with detention doctor or private doctor on 02/13/2025. Ask to review all test results and official radiology reports, to make sure you receive all necessary follow-ups and monitoring, including official radiology reports of today's x-rays. If you are not significantly better, ask for help with MRI imaging studies to assess for severe tears needing surgery. Unfortunately, this type of MRI is not available in the ER. 4. Seek immediate medical care with worsening or with any concerns. David Lu MD Related Data Home Medications ?Medication ?Instructions ?Recorded ?Confirmed atorvastatin 40 mg tablet 40 mg PO HS 12/10/22 09/02/23 calcium acetate(phosphat bind) 667 667 mg PO TID 12/10/22 09/02/23 mg tablet hydroxyzine HCl 25 mg tablet 50 mg PO QID 12/10/22 09/02/23 rivaroxaban 20 mg tablet (Xarelto) 20 mg PO DAILY 12/10/22 09/02/23 acetaminophen 325 mg tablet 650 mg PO PRN PRN Mild Pain (Scale 01/10/23 09/02/23 (Tylenol) Score 1-4) melatonin 3 mg capsule 3 mg PO HS PRN Insomnia 01/10/23 09/02/23 B-complex with vitamin C 1 tab PO QDAY 03/25/23 09/02/23 clonidine HCl 0.1 mg tablet 0.1 mg PO HS 03/25/23 09/02/23 ergocalciferol (vitamin D2) 62.5 See Rx Instructions .Route .COMPLEX 03/25/23 09/02/23 mcg (2,500 unit) capsule hydralazine 100 mg tablet 100 mg PO TID 03/25/23 09/02/23 insulin glargine 100 unit/mL (3 10 unit subcut QPM 03/25/23 09/02/23 mL) subcutaneous pen (Lantus Solostar U-100 Insulin) ondansetron HCl 4 mg tablet 4 mg PO Q6H PRN Nausea And Vomiting 03/25/23 09/02/23 tramadol 50 mg tablet 50 mg PO [id number] PRN Moderate Pain 03/25/23 09/02/23 (Scale Score 5-6) carvedilol 3.125 mg tablet (Coreg) 3.125 mg PO BID 09/02/23 09/02/23 docusate sodium 100 mg tablet 100 mg PO QDAY 09/02/23 09/02/23 insulin aspart U-100 100 unit/mL 1 sliding scale dose subcut 09/02/23 09/02/23 subcutaneous cartridge USEASDIRECTD Previous Rx's ?Medication ?Instructions ?Recorded amlodipine 10 mg tablet (Norvasc) 10 mg PO QDAY #30 tabs 12/11/22 meclizine 25 mg tablet 25 mg PO TID PRN Vertigo #90 tabs 12/18/22 cephalexin 500 mg capsule 500 mg PO BID #14 caps 03/19/24 cephalexin 500 mg capsule 500 mg PO BID #14 caps 03/19/24 ondansetron 4 mg disintegrating 4 mg PO Q8H PRN nausea and 03/19/24 tablet vomiting #10 tabs gabapentin 300 mg capsule 300 mg PO QDAY #14 caps 01/29/25 prednisone 10 mg tablet See Taper PO QDAY #24 tabs 01/29/25 cefdinir 300 mg capsule 300 mg PO BID #14 caps 02/08/25 Allergies Allergy/AdvReac Type Severity Reaction Status Date / Time levofloxacin Allergy Mild Vomiting Verified 11/12/24 21:01 Review of Systems Review of Systems Systems Reviewed: All systems reviewed, normal except as documented Past Medical History Past Medical History NEUROLOGIC: Positive Neurological Disorders and Cerebrovascular Accident; Negative Seizures CARDIAC: Positive Cardiac Disorders, Angina, Hypercholesterolemia, Congestive Heart Failure and Hypertension RESPIRATORY: Positive Chronic Obstructive Pulmonary Disease (COPD) and Pneumonia; Negative Asthma GASTROINTESTINAL: Negative Gastrointestinal Disorders or Gall Bladder Disease GENITOURINARY: Positive Genitourinary Disorders, Renal Disease and Dialysis REPRODUCTIVE: Positive Previous Pregnancies MUSCULOSKELETAL: Positive Musculoskeletal Disorders, Arthritis, Rheumatoid Arthritis and Osteoporosis ENT: Positive Blind and Deafness ENDOCRINE: Positive Endocrine Disorders and Diabetes Mellitus Type 2; Negative Diabetes Mellitus Type 1 HEMATOLOGIC: Positive Blood Disorders and Anemia; Negative Sickle Cell Disease PSYCHO/SOCIAL: Positive Depression and Anxiety OTHER HISTORY: Positive Hospitalization, Blood Transfusions, Chicken Pox and Measles; Negative Autoimmune Disease, Down Syndrome, Developmental Delay, Shingles, Falls, Blood Transfusion Reaction, Anesthesia Reactions or Cancer Family History FAMILY HISTORY: Positive Family Cardiac Disorders; Negative Family Psychiatric Problems, Family Respiratory Disorders, Family Gastrointestinal Problems, Family Cancer, Family Surgery or Family Anesthesia Reaction Surgical History SURGICAL: Positive Open Reduction Internal Fixation; Negative Mastectomy Social History SMOKING STATUS: Never smoker SUBSTANCE USE: former substance user (quit 2 years ago (nonspecific on what she used)) ED Exam Narrative Physical exam: As noted in HPI. Course Quality Measures none Orders Category Date Time Status Bedside COVID-19 Antigen Test NOW Care 02/09/25 22:51 Completed Bedside Influenza A&B Antigen Test NOW Care 02/09/25 22:51 Completed EKG (ED ONLY) *Do not use* NOW Care 02/09/25 22:51 Completed Miscellaneous Nursing Order NOW Care 02/10/25 01:04 Completed Saline [Insert IV] NOW Care 02/09/25 22:51 Completed EKG (ED Only) Stat Exams 02/09/25 22:51 Ordered XR chest 1V portable Stat Exams 02/09/25 22:51 Taken XR tibia fibula LT 2V Stat Exams 02/09/25 22:51 Taken ABG [Arterial Blood Gas] Stat Lab 02/09/25 23:22 Completed BNP [B-Type Natriuretic Peptide] Stat Lab 02/09/25 23:14 Completed Blood Culture (Lab) Stat Lab 02/09/25 23:10 Received CBC Stat Lab 02/09/25 23:14 Completed CMP [Comprehensive Metabolic Panel] Stat Lab 02/09/25 23:14 Completed CRP [C-Reactive Protein] Stat Lab 02/09/25 23:14 Completed ESR [Sed Rate (ESR)] Stat Lab 02/09/25 23:14 Completed Free T4 (Free Thyroxine) Stat Lab 02/09/25 23:14 Completed Lactate (Lactic Acid) Stat Lab 02/09/25 23:14 Completed Magnesium Stat Lab 02/09/25 23:14 Completed Procalcitonin Stat Lab 02/09/25 23:14 Completed TSH [Thyroid Stimulating Hormone] Stat Lab 02/09/25 23:14 Completed Troponin I Stat Lab 02/09/25 23:14 Completed Lidocaine 5% Patch Med 02/10/25 01:05 Discontinued 2 patch TOP X1 ONE Vital Signs Vital signs: Vital Signs Temperature 101.3 F H 02/09/25 22:23 Pulse Rate 77 02/09/25 22:23 Respiratory Rate 17 02/09/25 22:23 Blood Pressure 118/72 02/09/25 22:23 Pulse Oximetry (%) 93 L 02/09/25 22:23 Oxygen Delivery Method Room Air 02/09/25 22:23 Extremity Injury, Lower MDM Narrative MDM Narrative:: Scribe Attestation: 02/09/25 - I, Clementine Hernandez am scribing for and in the presence of Dr. Lu. 60yo female with a history of CHF on 2L/NC PRN, HTN, HLD, DM, renal disease on HD LUIS from [facility] presents to the ED for a chief complaint of LLE pain. Patient states she was being transferred from the chair to the gurney when she felt a pop below her left knee. Patient states she's had LLE pain since, so she was sent over for evaluation. Patient reports having worsening shortness of breath, a productive cough, and night sweats. Patient denies any vomiting, fever or any other associated symptoms. No other complaints reported. Patient data External records reviewed:: [facility] previous records (Per chart review, patient was seen here yesterday for UTI.) Clinical information provided by:: patient Social determinants that could affect healthcare access:: housing (SNF resident) Patient has the following chronic illnesses:: CHF, HTN, HLD, DM, renal disease on HD How is presenting disease/condition affected by chronic disease/condition?: uneffected by Evaluation data The following diagnostics were reviewed and interpreted by me:: lab results, radiology exam(s) and EKG tracing(s) (My interpretation of the EKG: NSR (72 bpm) with no ST-T changes. David Lu MD) Lab and/or radiology exams considered but not ordered:: none Interpretation Summary: I reviewed all diagnostic test results. My interpretation of the EKG is sinus rhythm with no acute ST-T changes. My interpretation of the chest x-ray is no acute findings, official radiology report is pending. My interpretation of tibia fibula x-ray x-rays is no acute fracture, official radiology report is pending. Blood tests unremarkable. COVID and Influenza swabs are negative. Medications / Prescriptions Medications or Prescriptions considered but not ordered:: none Medication administrations:: Medication Administration History Discontinued Medications Lidocaine (Lidocaine 5% 1 Patch) 2 patch TOP X1 ONE Stop: 02/10/25 01:06 Last Admin: 02/10/25 01:55 Dose: 2 patch Documented By: CP Lidocaine patches Consultations Consultation(s) initiated? (list below): No Diagnosis Extremity Injury, Lower Differential Diagnosis: ankle sprain and strain, acute internal derangement of knee, fracture of femur, fracture of hip, ankle fracture and other (Sprain/strain/contusion, fracture) Most likely diagnosis given after review of the tests above:: Strain of left calf muscle Admission Indicated Admission indicated?: not indicated Explain why admission is indicated or not indicated:: With no serious injury, there was no indication for admission. Admission Request Was there a request for admission?: No Disposition Plan Disposition Plan: Discharge Discharge Attestation Discharge Attestation: The patient and all family members were given an opportunity to ask questions and understood the discharge instructions. Discharge instructions specifically effects, indications for sooner follow up or return to the emergency department, and the expected course of current diagnosis. Patient condition: Stable Discharge Plan Plan Patient Disposition: Xfer Skilled Nsg Fac (SNF) Prescriptions/Referrals Prescriptions/Med Rec: No Action atorvastatin 40 mg tablet 40 mg PO HS calcium acetate(phosphat bind) 667 mg tablet 667 mg PO TID hydroxyzine HCl 25 mg tablet 50 mg PO QID Xarelto 20 mg tablet 20 mg PO DAILY amlodipine [Norvasc] 10 mg tablet 10 mg PO QDAY Qty: 30 0RF meclizine 25 mg Tablet 25 mg PO TID MDD 100mg PRN (Reason: Vertigo) Qty: 90 0RF acetaminophen [Tylenol] 325 mg Tablet 650 mg PO PRN PRN (Reason: Mild Pain (Scale Score 1-4)) melatonin 3 mg Capsule 3 mg PO HS PRN (Reason: Insomnia) cephalexin 500 mg capsule 500 mg PO BID Qty: 14 0RF ondansetron 4 mg tablet,disintegrating 4 mg PO Q8H PRN (Reason: nausea and vomiting) Qty: 10 0RF cephalexin 500 mg capsule 500 mg PO BID Qty: 14 0RF gabapentin 300 mg capsule 300 mg PO QDAY Qty: 14 0RF prednisone 10 mg tablet See Taper PO QDAY Qty: 24 0RF Taper: Prednisone Taper 60 mg DAILY for 2 Days and 0 Hour 40 mg DAILY for 2 Days and 0 Hour 20 mg DAILY for 2 Days and 0 Hour 10 mg DAILY for 2 Days and 0 Hour Rx Instructions: 6 tablets a day for 2 days then 4 tabs a day for 2 days then 2 tablets a day for 2 days then 1 tablet a day for 2 days cefdinir 300 mg capsule 300 mg PO BID Qty: 14 0RF clonidine HCl 0.1 mg Tablet 0.1 mg PO HS tramadol 50 mg Tablet 50 mg PO [id number] PRN (Reason: Moderate Pain (Scale Score 5-6)) hydralazine 100 mg Tablet 100 mg PO TID B-complex with vitamin C Tablet 1 tab PO QDAY insulin glargine [Lantus Solostar U-100 Insulin] 100 unit/mL (3 mL) Insulin Pen 10 unit SUBCUT QPM ergocalciferol (vitamin D2) 62.5 mcg (2,500 unit) Capsule See Rx Instructions .ROUTE .COMPLEX Rx Instructions: 62.5 mcg orally DAILY ON SUNDAYS ondansetron HCl 4 mg Tablet 4 mg PO Q6H PRN (Reason: Nausea And Vomiting) carvedilol [Coreg] 3.125 mg Tablet 3.125 mg PO BID Rx Instructions: must administer with a meal/food docusate sodium 100 mg Tablet 100 mg PO QDAY insulin aspart U-100 100 unit/mL Cartridge 1 sliding scale dose SUBCUT USEASDIRECTD Referrals: Vasiliy([facility])Rickie MD [Primary Care Provider] - In 1 week Problem List Clinical Impression: Strain of left calf muscle Patient/Caregiver Discharge Instructions Discharge Activity: activity as tolerated Education Materials: ED Muscle Strain, Extremity Additional Instructions: Discharge Instructions from Dr. Lu printed for you: 1. Unfortunately, you sustained tears of your left lower leg muscles. Fortunately, they will heal with rest and proper treatment. 2. Minimal weightbearing and elevate above the waist level and Frank wrap for 4 full days then as needed. Apply ice for 20 minutes every 2-3 hours today and tomorrow. Lidocaine patches as needed. 3. Recheck with detention doctor or private doctor on 02/13/2025. Ask to review all test results and official radiology reports, to make sure you receive all necessary follow-ups and monitoring, including official radiology reports of today's x-rays. If you are not significantly better, ask for help with MRI imaging studies to assess for severe tears needing surgery. Unfortunately, this type of MRI is not available in the ER. 4. Seek immediate medical care with worsening or with any concerns. Print Language: Honduran Stand Alone Forms: [employer] Award Info., Patient Portal Info Letter
--- NOTE | 2025-02-09 22:51 | EKG_ITS ---
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
--- NOTE | 2025-02-09 22:51 | XR_ITS ---
Examination: Tibia-Fibula, left , 2 views Technique: Tibia-fibula AP lateral 2 views Date and time of exam: February 10, 2025 0018 hours INDICATIONS: Injury to the lower leg today, lower leg pain FINDINGS: Severe osteopenia No acute fracture Or dislocation IMPRESSION: No acute fracture
--- NOTE | 2025-02-09 22:51 | XR_ITS ---
Examination: AP chest single view TECHNIQUE: AP portable upright chest single view Date and time: February 10, 2025 0026 hours Comparison February 08, 2025 INDICATIONS: Shortness of breath coughing night sweats this week. FINDINGS: Mild large cardiac contour Blunting of the left lateral costophrenic angle Scarring versus atelectasis in left upper lobe Mild vascular congestion No lobar pneumonia IMPRESSION: No lobar pneumonia
[2025-02-09 23:25] LABS: Lactate (Lactic Acid) 0.9 mMol/L (0.4-2.0)
[2025-02-09 23:26] LABS: Base Excess 4 (-3-3); HCO3 29 mEq/L (20-26); Inspired Oxygen, FIO2 21 %; O2 Saturation 95 % (91-98); PCO2 45 mmHg (32.0-48.0); PO2 70 mmHg (83-108); pH, Arterial 7.42 (7.35-7.45)
[2025-02-09 23:27] LABS: Allen Test Performed/OK; Puncture Site Right Radial
[2025-02-09 23:29] LABS: Basophils % (Auto) 0 % (0-2.5); Eosinophils % (Auto) 0 % (0-10); Hematocrit 28.5 % (36.0-46.0); Hemoglobin 9.4 g/dL (12.0-16.0); Immature Granulocytes % (Auto) 1 % (0-0); Immature Granulocytes Auto 0.04 Thou/mm3 (0.00-0.00); Lymphocytes % (Auto) 16 % (10-50); Mean Corpuscular Hemoglobin 34.1 pg (25.0-35.0); Mean Corpuscular Volume 103 fL (80-100); Monocytes # (Auto) 0.3 Thou/mm3 (0.0-0.8); Monocytes % (Auto) 6 % (0-12); Neutrophils # (Auto) 4.8 Thou/mm3 (1.8-7.7); Neutrophils % (Auto) 78 % (37-80); Nucleated Red Blood Cell % 0 /100 WBC (0); Platelet Count 121 Thou/mm3 (140-440); Red Blood Count 2.76 Miln/mm3 (4.00-5.20); White Blood Count 6.2 Thou/mm3 (3.6-11.0)
[2025-02-09 23:58] LABS: Alanine Aminotransferase 29 U/L (10-49); Albumin, Serum 3.1 gm/dL (3.5-5.0); Alkaline Phosphatase 103 U/L (46-116); Anion Gap 10 (7-16); Aspartate Amino Transferase 39 U/L (0-34); BUN/Creatinine Ratio 5 Ratio (12-20); Bilirubin,Total 0.2 mg/dL (0.3-1.2); Blood Urea Nitrogen 22 mg/dL (9-23); Calcium 7.6 mg/dL (8.3-10.6); Calcium (Corrected) 8.3 mg/dL (8.5-10.1); Carbon Dioxide 26.9 mMol/L (20.0-31.0); Chloride 99 mMol/L (98-107); Creatinine (Component) 4.1 mg/dL (0.6-1.3); Estimated Creatinine Clearance 15.3 mL/min (>60); Globulin 3.2 gm/dL (2.3-3.5); Glucose 115 mg/dL (74-106); Magnesium 1.7 mg/dL (1.6-2.6); Osmolality,Calculated 276 (275-295); Potassium 4.1 mMol/L (3.4-5.1); Procalcitonin 0.69 ng/ml (0.0-0.49); Sodium 136 mMol/L (136-145); Thyroid Stimulating Hormone 1.62 uIU/mL (0.55-4.78); Total Protein 6.3 gm/dL (5.7-8.2); Troponin I < 0.020 ng/mL (0.0-0.045); eGFR 12 See Note
[2025-02-10 00:06] LABS: C-Reactive Protein 11.3 mg/dL (0.0-0.9)
[2025-02-10 00:13] LABS: Sed Rate (ESR) 30 mm/hr (0-30)
[2025-02-10 00:39] LABS: B-Type Natriuretic Peptide 213 pg/mL (0-100)
[2025-02-10 01:14] VITALS: BP 164/91; PULSE 74; RESP 17; TEMP 37.2; O2SAT 99
[2025-02-10] MEDS: LIDOCAINE 5% 1 PATCH 2 PATCH TOP (01:55)
== END 2025-02-10 03:00 | disposition skilled nursing facility (03) ==
PROVIDERS: Emergency Provider Emergency Medicine; PCP Hospitalist
DX: S86.912A Strain of unspecified muscle(s) and tendon(s) at lower leg level, left leg, initial encounter (principal); I13.2 Hypertensive heart and chronic kidney disease with heart failure and with stage 5 chronic kidney disease, or end stage renal disease; I50.9 Heart failure, unspecified; E11.22 Type 2 diabetes mellitus with diabetic chronic kidney disease; N18.6 End stage renal disease; E78.5 Hyperlipidemia, unspecified
CPT/HCPCS: 36415; 36600; 71045; 73590; 80053; 81001; 82803; 83605; 83735; 83880; 84145; 84439; 84443; 84484; 85025; 85652; 86140; 87040; 87400; 87811; 93005; 99283; J3490

== ENCOUNTER 2025-02-24 07:07 | Emergency (ER) | payer MEDICAID, SELFPAY ==
[2025-02-24] VITALS (10 sets, daily range): BP systolic 141–158; BP diastolic 59–88; PULSE 74–98; RESP 16–20; TEMP 36.5–37.3; O2SAT 84–98; BMI 39.6
--- NOTE | 2025-02-24 07:20 | XR_ITS ---
Examination: AP chest single view TECHNIQUE: AP portable upright chest single view Date and time: February 24, 2025, 0745 hours, comparison February 10, 2025 FINDINGS: Pneumonia left base retrocardiac obscuring detail medial portion left hemidiaphragm Mild pneumonia right base Normal heart size Mild vascular congestion Scarring in the left upper lobe Prominent osteopenia IMPRESSION: Bibasilar pneumonia
--- NOTE | 2025-02-24 07:20 | EKG_ITS ---
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
--- NOTE | 2025-02-24 07:23 | EDNOTE_ITS ---
<Statement entered by Lindsay Kemp MD - 03/07/25 01:04> I, Lindsay Kemp MD, have reviewed the history, exam, and assessment of the patient. I have evaluated the patient independently and agree with the plan of care documented by [ ]. All diagnostic studies were reviewed and discussed. I confirm the diagnosis as documented by the Resident. I was present during the Medical Decision Making for this patient. The patient's plan of care was created between myself and the Resident and consistent with our discussion of the patient's case. Nausea/Vomit./Diarrhea-RME/HPI General Chief complaint: Nausea/Vomiting/Diarrhea Stated complaint: NAUSEA Time Seen by Provider: 02/24/25 07:13 Arrival date/time: 02/24/25 07:07 RME / HPI RME / HPI Narrative: The patient is a 60-year-old female with significant past medical history of CHF on occasional 2 L NC, ESRD on hemodialysis MWF, hypertension, hyperlipidemia, diabetes mellitus type 2 presented to ED from [facility] with chief complaint of nausea and vomiting associated with fever that started this morning. Patient reported that she had her chicken soup with milk last night, and later started throwing up this morning. She reported associated dizziness, feeling heart, mild SOB and dysuria. She denied any headache, sore throat, chest pain, abdominal pain, any leg edema. Related Data Home Medications ?Medication ?Instructions ?Recorded ?Confirmed atorvastatin 40 mg tablet 40 mg PO HS 12/10/22 3 calcium acetate(phosphat bind) 667 667 mg PO TID 12/1009/02/23 mg tablet hydroxyzine HCl 25 mg tablet 50 mg PO QID 12/10/2203/20 rivaroxaban 20 mg tablet (Xarelto) 20 mg PO DAILY 11/2609/02/23 acetaminophen 325 mg tablet 650 mg PO PRN PRN Mild Greg n (Scale 01/10/23 09/02/23 (Tylenol) Score 1-4) melatonin 3 mg capsule 3 mg PO HS PRN Insomnia 12/2709/02/23 B-complex with vitamin C 1 tab PO QDAY 03/25/2309/02 clonidine HCl 0.1 mg tablet 0.1 mg PO HS 03/25/23 1203/20 ergocalciferol (vitamin D2) 62.5 See Rx Instructions . Route .COMPLEX 03/25/23 09/02/23 mcg (2,500 unit) capsule hydralazine 100 mg tablet 100 mg PO TID 03/25/2309/02 insulin glargine 100 unit/mL (3 10 unit subcut QPM 09/02/23 mL) subcutaneous pen (Lantus Solostar U-100 Insulin) ondansetron HCl 4 mg tablet 4 mg PO Q6H PRN Nausea And Vomiting 03/25/23 09/02/23 tramadol 50 mg tablet 50 mg PO [id number] PRN Moderat e Pain 03/25/23 09/02/23 (Scale Score 5-6) carvedilol 3.125 mg tablet (Coreg) 3.125 mg PO BID 03/2009/02/23 docusate sodium 100 mg tablet 100 mg PO QDAY 09/02/23 09/02/23 insulin aspart U-100 100 unit/mL 1 sliding scale dose subcut 09/02/23 09/02/23 subcutaneous cartridge USEASDIRECTD Previous Rx's ?Medication ?Instructions ?Recorded amlodipine 10 mg tablet (Norvasc) 10 mg PO QDAY #30 ta bs 12/11/22 meclizine 25 mg tablet 25 mg PO TID PRN Vertigo #90 tabs 12/18/22 cephalexin 500 mg capsule 500 mg PO BID #14 caps 03/19 cephalexin 500 mg capsule 500 mg PO BID #14 caps 03/19 ondansetron 4 mg disintegrating 4 mg PO Q8H PRN nausea and 03/19/24 tablet vomiting #10 tabs gabapentin 300 mg capsule 300 mg PO QDAY #14 caps 01/20 prednisone 10 mg tablet See Taper PO QDAY #24 tabs 0 01/29/25 cefdinir 300 mg capsule 300 mg PO BID #14 caps 02/08 amoxicillin 500 mg-potassium 1 tab PO BID #12 tabs clavulanate 125 mg tablet doxycycline hyclate 100 mg capsule 100 mg PO BID #13 c aps 02/24/25 Allergies Allergy/AdvReac Type Severity Reaction Status Date / Time levofloxacin Allergy Mild Vomiting Verified 02/24/25 07:54 Review of Systems Review of Systems Systems Reviewed: All systems reviewed, normal except as documented (Above) Past Medical History Past Medical History NEUROLOGIC: Positive Neurological Disorders and Cerebrovascular Accident; Negative Seizures CARDIAC: Positive Cardiac Disorders, Angina, Hypercholesterolemia, Congestive Heart Failure and Hypertension RESPIRATORY: Positive Chronic Obstructive Pulmonary Disease (COPD) and Pneumonia; Negative Asthma GASTROINTESTINAL: Negative Gastrointestinal Disorders or Gall Bladder Disease GENITOURINARY: Positive Genitourinary Disorders, Renal Disease and Dialysis REPRODUCTIVE: Positive Previous Pregnancies MUSCULOSKELETAL: Positive Musculoskeletal Disorders, Arthritis, Rheumatoid Arthritis and Osteoporosis ENT: Positive Blind and Deafness ENDOCRINE: Positive Endocrine Disorders and Diabetes Mellitus Type 2; Negative Diabetes Mellitus Type 1 HEMATOLOGIC: Positive Blood Disorders and Anemia; Negative Sickle Cell Disease PSYCHO/SOCIAL: Positive Depression and Anxiety OTHER HISTORY: Positive Hospitalization, Blood Transfusions, Chicken Pox and Measles; Negative Autoimmune Disease, Down Syndrome, Developmental Delay, Shingles, Falls, Blood Transfusion Reaction, Anesthesia Reactions or Cancer Family History FAMILY HISTORY: Positive Family Cardiac Disorders; Negative Family Psychiatric Problems, Family Respiratory Disorders, Family Gastrointestinal Problems, Family Cancer, Family Surgery or Family Anesthesia Reaction Surgical History SURGICAL: Positive Open Reduction Internal Fixation; Negative Mastectomy Social History SMOKING STATUS: Never smoker SUBSTANCE USE: former substance user (quit 2 years ago (nonspecific on what she used)) ED Exam Narrative Physical exam: General: Middle-aged, obese, cooperative female, no acute distress, Alert and Oriented x 3 HEENT: Moist mucous membranes, oropharynx clear Neck: Supple, No masses, No JVD CVS: S1S2 Regular rate and rhythm, No murmurs, rubs or gallops Lungs: Clear to auscultation with no accessory use, no wheeze no rhonchi, saturating 96% on 3 L NC. Abd: Soft, NT/ND, +BS, no organomegaly Ext: No edema, warm and well perfused Skin: No rash Psych: Appropriate mood and affect Course Quality Measures none Orders Category Date Time Status Bedside Influenza A&B Antigen Test NOW Care 02/24/25 07:36 Completed Liner Installer STAT Care 02/24/25 07:20 Active EKG (ED ONLY) *Do not use* NOW Care 02/24/25 07:20 Completed In and Out Catheter X1 Care 02/24/25 09:22 Active Insert IV STAT Care 02/24/25 07:20 Active Orthostatic Vitals NOW Care 02/24/25 07:20 Active EKG (ED Only) Stat Exams 02/24/25 07:20 Draft XR chest 1V portable Stat Exams 02/24/25 07:20 Completed Blood Culture (Lab) Stat Lab 02/24/25 08:20 Received CBC Stat Lab 02/24/25 07:47 Completed COVID-19 Antigen (In-House) Stat Lab 02/24/25 08:11 Completed Comprehensive Metabolic Panel Stat Lab 02/24/25 07:47 Completed Lactic Acid [Lactate (Lactic Acid)] Stat Lab 02/24/25 09:48 Completed Magnesium Stat Lab 02/24/25 07:47 Completed Phosphorous Stat Lab 02/24/25 07:47 Completed Procalcitonin Stat Lab 02/24/25 09:48 Completed Urinalysis Stat Lab 02/24/25 11:05 Completed Calcium Carbonate Med 02/24/25 12:06 Discontinued 600 mg PO X1 ONE Doxycycline Inj [Vibramycin Inj] 100 mg Med 02/24/25 09:18 Discontinued Sodium Chloride 0.9% (Pop) [NS 0.9% mini bag] 100 ml IV X1 Ondansetron Inj [Zofran Inj] Med 02/24/25 07:20 Discontinued 4 mg IVP X1 ONE Ondansetron Inj [Zofran Inj] Med 02/24/25 12:24 Discontinued 4 mg IVP X1 ONE Pantoprazole Inj [Protonix Inj] Med 02/24/25 12:24 Discontinued 40 mg IVP X1 ONE amLODIPine BESYLATE [Norvasc] Med 02/24/25 12:02 Discontinued 10 mg PO X1 ONE cefTRIAXone/D5w 1gm IV premix [Rocephin/D5w 1gm IV Med 02/24/25 09:19 Discontinued premix] 1 gm in 50 ml IV X1 Oxygen Delivery NOW RT 02/24/25 07:20 Active Vital Signs Vital signs: Vital Signs Temperature 98.8 F 02/24/25 07:12 Pulse Rate 80 02/24/25 07:12 Respiratory Rate 20 02/24/25 07:12 Blood Pressure 141/59 H 02/24/25 07:12 Pulse Oximetry (%) 86 L 02/24/25 07:12 Oxygen Delivery Method Room Air 02/24/25 07:12 Nausea/Vomiting/Diarrhea MDM Narrative MDM Narrative:: The patient is a 60-year-old female with significant past medical history of CHF on occasional 2 L NC, ESRD on hemodialysis MWF, hypertension, hyperlipidemia, diabetes mellitus type 2 presented to ED from [facility] with chief complaint of nausea and vomiting associated with fever that started this morning. Patient reported that she had her chicken soup with milk last night, and later started throwing up this morning. She reported associated dizziness, feeling heart, mild SOB and dysuria. She denied any headache, sore throat, chest pain, abdominal pain, any leg edema. Her initial vitals were blood pressure 141/59, pulse 80, RR 20, temperature 98.8, saturating 86% on room air. Labs were significant for white count 9.9, hemoglobin 11.5, MCV 104, chloride 97, creatinine about baseline 4.4, GFR 11, blood sugar 147, corrected calcium 8.4, Pro-Beau 0.56, UA revealed protein 3+, WBC 134, leukocyte esterase positive, and urine bacteria 1+. Chest x-ray read by consuelo david. EKG revealed sinus rhythm. The patient was given IV cef triaxone and doxycycline, amlodipine 10mg POx1, Zofran 4mg IV x2, Pantoprazole 40mg IV x1. The patient's management plan was discussed with my attending physician MD Wisam Low MD, PGY2 Patient data External records reviewed:: [facility] previous records Clinical information provided by:: patient and EMS Social determinants that could affect healthcare access:: none Patient has the following chronic illnesses:: See above How is presenting disease/condition affected by chronic disease/condition?: caused by Evaluation data The following diagnostics were reviewed and interpreted by me:: lab results, radiology exam(s) and EKG tracing(s) Lab and/or radiology exams considered but not ordered:: None Interpretation Summary: see above Medications / Prescriptions Medications / Prescriptions considered but not ordered:: None Medication administrations:: Medication Administration History Discontinued Medications Amlodipine Besylate (Amlodipine Besylate 5 Mg Tablet) 10 mg PO X1 ONE Stop: 02/24/25 12:03 Calcium Carbonate (Calcium Carbonate 600 Mg Tablet) 600 mg PO X1 ONE Stop: 02/24/25 12:07 Ceftriaxone Sodium/Dextrose (Rocephin/D5w 1gm Iv Premix) 1 gm in 50 mls @ 100 mls/hr IV X1 ONE Stop: 02/24/25 09:48 Last Infusion: 02/24/25 10:26 Dose: Infused Documented By: Admin: 02/24/25 09:56 Dose: 100 mls/hr Documented By: TM Doxycycline Hyclate 100 mg/ (Sodium Chloride) 100 mls @ 100 mls/hr IV X1 ONE Stop: 02/24/25 10:17 Last Infusion: 02/24/25 11:29 Dose: Infused Documented By: Admin: 02/24/25 10:29 Dose: 100 mls/hr Documented By: TM Ondansetron HCl (Ondansetron Inj 2 Mg/Ml Inj 2 Ml) 4 mg IVP X1 ONE; Protocol Stop: 02/24/25 07:21 Last Admin: 02/24/25 08:33 Dose: 4 mg Documented By: TM Ondansetron HCl (Ondansetron Inj 2 Mg/Ml Inj 2 Ml) 4 mg IVP X1 ONE; Protocol Stop: 02/24/25 12:25 Last Admin: 02/24/25 13:08 Dose: 4 mg Documented By: TM Pantoprazole Sodium (Pantoprazole Inj 40 Mg Vial) 40 mg IVP X1 ONE Stop: 02/24/25 12:25 Last Admin: 02/24/25 13:06 Dose: 40 mg Documented By: TM See above Consultations Consultation(s) initiated? (list below): No Diagnosis Nausea Differential Diagnosis: food poisoning, gastroenteritis and other (UTI) Most likely diagnosis given after review of the tests above:: Community acquired Pneumonia and UTI Admission Indicated Admission indicated?: not indicated Admission Request Was there a request for admission?: No Disposition Plan Disposition Plan: Discharge Discharge Attestation Discharge Attestation: The patient and all family members were given an opportunity to ask questions and understood the discharge instructions. Discharge instructions specifically effects, indications for sooner follow up or return to the emergency department, and the expected course of current diagnosis. Patient condition: Stable Discharge Plan Plan Patient Disposition: Xfer Skilled Nsg Fac (SNF) Prescriptions/Referrals Prescriptions/Med Rec: New amoxicillin-pot clavulanate 500-125 mg tablet 1 tab PO BID Qty: 12 0RF Rx Instructions: Please take this medicine after hemodialysis. doxycycline hyclate 100 mg capsule 100 mg PO BID Qty: 13 0RF No Action atorvastatin 40 mg tablet 40 mg PO HS calcium acetate(phosphat bind) 667 mg tablet 667 mg PO TID hydroxyzine HCl 25 mg tablet 50 mg PO QID Xarelto 20 mg tablet 20 mg PO DAILY amlodipine [Norvasc] 10 mg tablet 10 mg PO QDAY Qty: 30 0RF meclizine 25 mg Tablet 25 mg PO TID MDD 100mg PRN (Reason: Vertigo) Qty: 90 0RF acetaminophen [Tylenol] 325 mg Tablet 650 mg PO PRN PRN (Reason: Mild Pain (Scale Score 1-4)) melatonin 3 mg Capsule 3 mg PO HS PRN (Reason: Insomnia) cephalexin 500 mg capsule 500 mg PO BID Qty: 14 0RF ondansetron 4 mg tablet,disintegrating 4 mg PO Q8H PRN (Reason: nausea and vomiting) Qty: 10 0RF cephalexin 500 mg capsule 500 mg PO BID Qty: 14 0RF gabapentin 300 mg capsule 300 mg PO QDAY Qty: 14 0RF prednisone 10 mg tablet See Taper PO QDAY Qty: 24 0RF Taper: Prednisone Taper 60 mg DAILY for 2 Days and 0 Hour 40 mg DAILY for 2 Days and 0 Hour 20 mg DAILY for 2 Days and 0 Hour 10 mg DAILY for 2 Days and 0 Hour Rx Instructions: 6 tablets a day for 2 days then 4 tabs a day for 2 days then 2 tablets a day for 2 days then 1 tablet a day for 2 days cefdinir 300 mg capsule 300 mg PO BID Qty: 14 0RF clonidine HCl 0.1 mg Tablet 0.1 mg PO HS tramadol 50 mg Tablet 50 mg PO [id number] PRN (Reason: Moderate Pain (Scale Score 5-6)) hydralazine 100 mg Tablet 100 mg PO TID B-complex with vitamin C Tablet 1 tab PO QDAY insulin glargine [Lantus Solostar U-100 Insulin] 100 unit/mL (3 mL) Insulin Pen 10 unit SUBCUT QPM ergocalciferol (vitamin D2) 62.5 mcg (2,500 unit) Capsule See Rx Instructions .ROUTE .COMPLEX Rx Instructions: 62.5 mcg orally DAILY ON SUNDAYS ondansetron HCl 4 mg Tablet 4 mg PO Q6H PRN (Reason: Nausea And Vomiting) carvedilol [Coreg] 3.125 mg Tablet 3.125 mg PO BID Rx Instructions: must administer with a meal/food docusate sodium 100 mg Tablet 100 mg PO QDAY insulin aspart U-100 100 unit/mL Cartridge 1 sliding scale dose SUBCUT USEASDIRECTD Referrals: No Primary/Family,Physician [Primary Care Provider] - In 1 week Problem List Clinical Impression: CAP (community acquired pneumonia), CKD (chronic kidney disease) requiring chronic dialysis, Food poisoning Patient/Caregiver Discharge Instructions Education Materials: Preventing Pneumonia, Hemodialysis Additional Instructions: The patient was discharged on following recommendations by Dr. Gonzalez: Please follow-up with your PCP within 1 week of discharge Please get your Hemodialysis regularly as schedules You have been started on: - Amoxicillin-clavulanate 500-125 mg twice daily starting from tomorrow for 6 days - Doxycycline 100 Mg twice daily starting today evening for 7 days - May be considered for antireflux medicine by your PCP. Continue taking all other medicines as prescribed -Recommended to return back to emergency department if your symptoms persists or worsens Print Language: Yemeni Stand Alone Forms: [facility] Award Info., Patient Portal Info Letter
--- NOTE | 2025-02-24 07:57 | PC.NURSE ---
PT LUIS FROM [facility] FOR NAUSEA VOMITING. PT GIVEN ZOFRAN AND TYLENOL AT SNF FOR NAUSEA AND FEVER. HERE PT DOES NOT HAVE FEVER, HOWEVER DOES STATE THAT ZOFRAN DID NOT WORK FOR HER. PT IS DUE FOR DIALYSIS TODAY, SHE GETS IT M/W/F. PT CONNECTED TO TELE, VSS. PT ON 3L O2 VIA NC PTS SPO2 WAS MID 80S FOR EMS ON RA. PT IS NOT NORMALLY ON O2. CALL COOK IN REACH, WILL CONT W/POC
[2025-02-24 08:06] LABS: Basophils % (Auto) 0 % (0-2.5); Eosinophils % (Auto) 0 % (0-10); Hematocrit 34.3 % (36.0-46.0); Hemoglobin 11.5 g/dL (12.0-16.0); Immature Granulocytes % (Auto) 2 % (0-0); Immature Granulocytes Auto 0.24 Thou/mm3 (0.00-0.00); Lymphocytes # (Auto) 0.6 Thou/mm3 (1.0-4.8); Lymphocytes % (Auto) 6 % (10-50); Mean Corpuscular HGB Conc 33.5 g/dl (31.0-37.0); Mean Corpuscular Hemoglobin 34.7 pg (25.0-35.0); Mean Corpuscular Volume 104 fL (80-100); Monocytes # (Auto) 0.3 Thou/mm3 (0.0-0.8); Monocytes % (Auto) 3 % (0-12); Neutrophils # (Auto) 8.7 Thou/mm3 (1.8-7.7); Neutrophils % (Auto) 89 % (37-80); Nucleated Red Blood Cell % 0 /100 WBC (0); Platelet Count 223 Thou/mm3 (140-440); RDW Standard Deviation 54.4 fL (36.4-46.3); Red Blood Count 3.31 Miln/mm3 (4.00-5.20); White Blood Count 9.9 Thou/mm3 (3.6-11.0)
[2025-02-24 08:26] LABS: Alanine Aminotransferase 10 U/L (10-49); Albumin, Serum 3.2 gm/dL (3.5-5.0); Albumin/Globulin Ratio 0.9 (1.2-2.2); Alkaline Phosphatase 89 U/L (46-116); Anion Gap 11 (7-16); Aspartate Amino Transferase 37 U/L (0-34); BUN/Creatinine Ratio 5 Ratio (12-20); Bilirubin,Total < 0.2 mg/dL (0.3-1.2); Blood Urea Nitrogen 22 mg/dL (9-23); Calcium 7.8 mg/dL (8.3-10.6); Calcium (Corrected) 8.4 mg/dL (8.5-10.1); Carbon Dioxide 28.5 mMol/L (20.0-31.0); Chloride 97 mMol/L (98-107); Creatinine (Component) 4.4 mg/dL (0.6-1.3); Estimated Creatinine Clearance 14.5 mL/min (>60); Globulin 3.5 gm/dL (2.3-3.5); Glucose 147 mg/dL (74-106); Magnesium 1.7 mg/dL (1.6-2.6); Osmolality,Calculated 278 (275-295); Phosphorous 3.5 mg/dL (2.4-5.1); Potassium 4.2 mMol/L (3.4-5.1); Sodium 136 mMol/L (136-145); Total Protein 6.7 gm/dL (5.7-8.2); eGFR 11 See Note
[2025-02-24] MEDS: ONDANSETRON INJ 2 MG/ML INJ 2 ML 4 MG IVP ×2 (08:33→13:08)
[2025-02-24 08:37] LABS: COVID-19 Antigen (In-House) Negative (Negative)
[2025-02-24 09:52] LABS: Lactate (Lactic Acid) 0.7 mMol/L (0.4-2.0)
[2025-02-24] MEDS: cefTRIAXone/D5w 1gm IV premix 1 GM/50 ML BAG IV (09:56)
[2025-02-24 10:24] LABS: Procalcitonin 0.56 ng/ml (0.0-0.49)
[2025-02-24] MEDS: DOXYCYCLINE INJ 100 MG in SODIUM CHLORIDE 0.9% (POP) 100 ML IV (10:29)
[2025-02-24 11:12] LABS: Collection Type, Urine Clean Catch
[2025-02-24 11:30] LABS: Bacteria,Urine 1+; Bilirubin,Urine Negative (Negative); Blood,Urine Negative (Negative); Color,Urine Yellow (Lt Yel-Yel); Glucose, Urine Negative (Negative); Ketones,Urine Negative (Negative); Leukocyte Esterase,Urine Positive (Negative); Nitrite,Urine Negative (Negative); Protein,Urine 3+ (Neg - Trace); RBC,Urine 5 /hpf (0-3); Specific Gravity,Urine 1.019 (1.001-1.035); Squamous Epithelial Cell,Urine 1 /hpf (0-5); WBC,Urine 134 /hpf (0-5)
[2025-02-24 11:44] LABS: Clarity,Urine Hazy (Clear/Hazy)
[2025-02-24] MEDS: PANTOPRAZOLE INJ 40 MG VIAL IVP (13:06)
--- NOTE | 2025-02-24 13:36 | PC.NURSE ---
SPOKE W/PHARMACY, WAITING FOR PHARMACY TO DELIVER MEDICATION.
[2025-02-24] MEDS: amLODIPine BESYLATE 5 MG TABLET 10 MG PO (13:45)
[2025-02-24] MEDS: CALCIUM CARBONATE 600 MG TABLET PO (13:45)
--- NOTE | 2025-02-24 14:22 | PC.NURSE ---
SPOKE W/EDGARDO THE NURSE AT [facility], GAVE REPORT ON CARE/RESULTS AND NEW MEDICATIONS TO BE GIVEN OUT PATIENT. NURSE VERBALIZED UNDERSTANDING AND STATED SHE IS ATTEMPTING TO ARRANGE A RIDE BACK TO THE FACILITY WITH THEIR MISSILE TECHNICIAN.
--- NOTE | 2025-02-24 16:33 | PC.CC ---
Ashley BINGHAM was consulted by ERIC Oakley regarding transportation back to [facility]. ASW made contact with [facility] [id number].
--- NOTE | 2025-02-24 23:46 | PC.LAC ---
CALLED NIURKA RAMIREZ TO GIVE REPORT SPOKE TO JALEN REYES.
== END 2025-02-24 23:47 | disposition skilled nursing facility (03) ==
PROVIDERS: Emergency Provider Student in an Organized Health Care Education/Training Program
DX: A05.9 Bacterial foodborne intoxication, unspecified (principal); J18.9 Pneumonia, unspecified organism; I13.2 Hypertensive heart and chronic kidney disease with heart failure and with stage 5 chronic kidney disease, or end stage renal disease; E11.22 Type 2 diabetes mellitus with diabetic chronic kidney disease; N18.6 End stage renal disease; Z99.2 Dependence on renal dialysis; Z79.4 Long term (current) use of insulin
CPT/HCPCS: 51701; 36415; 71045; 80053; 81001; 83605; 83735; 84100; 84145; 85025; 87040; 87400; 87811; 96365; 96367; 96375; 99284; J0696; J2405; J2470; J3490; A9270

== ENCOUNTER 2025-03-24 08:49 | Emergency (ER) | payer MEDICAID, SELFPAY ==
[2025-03-24 08:52] VITALS: BP 145/72; PULSE 81; RESP 16; TEMP 37; O2SAT 93
[2025-03-24 08:56] VITALS: PULSE 93; O2SAT 96
[2025-03-24 09:05] VITALS: BMI 40.0
--- NOTE | 2025-03-24 09:36 | PD.EDABDPN ---
ED Abdominal Pain RME/HPI General Chief Complaint: Abdominal Pain Stated complaint: ABDOMINAL PAIN Time seen by provider: 03/24/25 09:23 Arrival date/time: 03/24/25 08:49 Limitations: no limitations RME / HPI RME / HPI narrative: 60 year old female with history of hypertension, diabetes, hyperlipidemia, ESRD on hemodialysis (M/W/F), and anemia, presents to the ED via BIBA from the dialysis center for evaluation of epigastric pain that began approximately 1 hour into her dialysis session. Pain is described as pressure like, occurring in waves, with each episode lasting around 1 hour. The pain is associated with nausea, but no vomiting, and shortness of breath that worsens during the pain episodes. Patient denies fevers, chills, sweats, chest pain, cough, or diarrhea. Additionally, she reports being started on antibiotics yesterday for a UTI. Related Data Home Medications ?Medication ?Instructions ?Recorded ?Confirmed atorvastatin 40 mg tablet 40 mg PO HS 12/10/22 09/02/23 calcium acetate(phosphat bind) 667 667 mg PO TID 12/10/22 09/02/23 mg tablet hydroxyzine HCl 25 mg tablet 50 mg PO QID 12/10/22 09/02/23 rivaroxaban 20 mg tablet (Xarelto) 20 mg PO DAILY 12/10/22 09/02/23 acetaminophen 325 mg tablet 650 mg PO PRN PRN Mild Pain (Scale 01/10/23 09/02/23 (Tylenol) Score 1-4) melatonin 3 mg capsule 3 mg PO HS PRN Insomnia 01/10/23 09/02/23 B-complex with vitamin C 1 tab PO QDAY 03/25/23 09/02/23 clonidine HCl 0.1 mg tablet 0.1 mg PO HS 03/25/23 09/02/23 ergocalciferol (vitamin D2) 62.5 See Rx Instructions .Route .COMPLEX 03/25/23 09/02/23 mcg (2,500 unit) capsule hydralazine 100 mg tablet 100 mg PO TID 03/25/23 09/02/23 insulin glargine 100 unit/mL (3 10 unit subcut QPM 03/25/23 09/02/23 mL) subcutaneous pen (Lantus Solostar U-100 Insulin) ondansetron HCl 4 mg tablet 4 mg PO Q6H PRN Nausea And Vomiting 03/25/23 09/02/23 tramadol 50 mg tablet 50 mg PO [id number] PRN Moderate Pain 03/25/23 09/02/23 (Scale Score 5-6) carvedilol 3.125 mg tablet (Coreg) 3.125 mg PO BID 09/02/23 09/02/23 docusate sodium 100 mg tablet 100 mg PO QDAY 09/02/23 09/02/23 insulin aspart U-100 100 unit/mL 1 sliding scale dose subcut 09/02/23 09/02/23 subcutaneous cartridge USEASDIRECTD Previous Rx's ?Medication ?Instructions ?Recorded amlodipine 10 mg tablet (Norvasc) 10 mg PO QDAY #30 tabs 12/11/22 meclizine 25 mg tablet 25 mg PO TID PRN Vertigo #90 tabs 12/18/22 cephalexin 500 mg capsule 500 mg PO BID #14 caps 03/19/24 cephalexin 500 mg capsule 500 mg PO BID #14 caps 03/19/24 ondansetron 4 mg disintegrating 4 mg PO Q8H PRN nausea and 03/19/24 tablet vomiting #10 tabs gabapentin 300 mg capsule 300 mg PO QDAY #14 caps 01/29/25 prednisone 10 mg tablet See Taper PO QDAY #24 tabs 01/29/25 cefdinir 300 mg capsule 300 mg PO BID #14 caps 02/08/25 amoxicillin 500 mg-potassium 1 tab PO BID #12 tabs 02/24/25 clavulanate 125 mg tablet doxycycline hyclate 100 mg capsule 100 mg PO BID #13 caps 02/24/25 amoxicillin 500 mg-potassium 1 tab PO BID #14 tabs 03/24/25 clavulanate 125 mg tablet (Augmentin) azithromycin 250 mg tablet 250 mg PO QDAY Start this 03/24/25 (Zithromax Z-Kenny) prescription tomorrow 6 days #6 tabs Allergies Allergy/AdvReac Type Severity Reaction Status Date / Time levofloxacin Allergy Mild Vomiting Verified 02/24/25 07:54 Review of Systems Review of Systems Systems Reviewed: All systems reviewed, normal except as documented Past Medical History Past Medical History NEUROLOGIC: Positive Neurological Disorders and Cerebrovascular Accident (2020 l sided deficits) CARDIAC: Positive Cardiac Disorders, Angina, Hypercholesterolemia, Congestive Heart Failure and Hypertension RESPIRATORY: Positive Chronic Obstructive Pulmonary Disease (COPD) and Pneumonia GENITOURINARY: Positive Genitourinary Disorders, Renal Disease and Dialysis (M,W,F) REPRODUCTIVE: Positive Previous Pregnancies MUSCULOSKELETAL: Positive Musculoskeletal Disorders, Arthritis, Rheumatoid Arthritis and Osteoporosis ENT: Positive Blind and Deafness ENDOCRINE: Positive Endocrine Disorders and Diabetes Mellitus Type 2 HEMATOLOGIC: Positive Blood Disorders and Anemia PSYCHO/SOCIAL: Positive Depression and Anxiety OTHER HISTORY: Positive Hospitalization, Blood Transfusions, Chicken Pox and Measles Family History FAMILY HISTORY: Positive Family Cardiac Disorders; Negative Family Psychiatric Problems, Family Respiratory Disorders, Family Gastrointestinal Problems, Family Cancer, Family Surgery or Family Anesthesia Reaction Surgical History SURGICAL: Positive Open Reduction Internal Fixation; Negative Mastectomy Social History SMOKING STATUS: Never smoker SUBSTANCE USE: former substance user (quit 2 years ago (nonspecific on what she used)) ED Exam General Limitations: Present no limitations General appearance: Present alert and in no apparent distress Head Head exam: Present atraumatic, normocephalic and normal inspection Eye Eye exam: Present normal appearance, PERRL and EOMI ENT ENT exam: Present normal exam, normal oropharynx and mucous membranes moist Neck Neck exam: Present normal inspection, full ROM and trachea midline Chest Chest inspection: Present normal inspection and symmetric chest wall rise Respiratory Respiratory exam: Present normal lung sounds bilaterally Cardiovascular Cardiovascular exam: Present regular rate, normal rhythm and systolic murmur Abdominal Exam Abdominal exam: Present soft, tenderness (to epigastric region and left upper quadrant) and normal bowel sounds Extremities Exam Extremities exam: Present normal inspection and full ROM Back Exam Back exam: Present normal inspection and full ROM Neurological Exam Neurological exam: Present alert, oriented X3 and CN II-XII intact Psychiatric Psychiatric exam: Present normal affect and normal mood Skin Skin exam: Present warm, dry, intact and normal color Course Quality Measures none Orders Category Date Time Status CT Screening NOW Care 03/24/25 10:31 Active EKG (ED ONLY) *Do not use* NOW Care 03/24/25 09:[address] abdomen pelvis wo con Stat Exams 03/24/25 10:46 Completed CXRP [XR chest 1V portable] Stat Exams 03/24/25 10:34 Completed EKG (ED Only) Stat Exams 03/24/25 09:40 Draft US abdomen Stat Exams 03/24/25 10:33 Completed BNP [B-Type Natriuretic Peptide] Stat Lab 03/24/25 09:38 Completed CBC [CBC] Stat Lab 03/24/25 09:38 Completed CMP [Comprehensive Metabolic Panel] Stat Lab 03/24/25 09:38 Completed Lipase Stat Lab 03/24/25 09:38 Completed Troponin I Stat Lab 03/24/25 09:38 Completed UA, C/S IF [Urinalysis, C/S if Indicated] Stat Lab 03/24/25 10:45 Completed Urine Culture Stat Lab 03/24/25 10:45 Received Amoxicillin/Pot Clav 875 [Augmentin 875] Med 03/24/25 12:39 Discontinued 1 tab PO X1 ONE Azithromycin Po [Zithromax PO] Med 03/24/25 12:39 Discontinued 500 mg PO X1 ONE HYDROmorphone INJ [Dilaudid Inj] Med 03/24/25 09:55 Active 1 mg IVP Q6H PRN Vital Signs Vital signs: Vital Signs Temperature 98.6 F 03/24/25 08:52 Pulse Rate 81 03/24/25 08:52 Respiratory Rate 16 03/24/25 08:52 Blood Pressure 145/72 H 03/24/25 08:52 Pulse Oximetry (%) 93 L 03/24/25 08:52 Oxygen Delivery Method Room Air 03/24/25 08:52 Pulse ox is 93% on room air which is low. Abdominal Pain MDM MDM Narrative MDM Narrative:: IJaquelin am scribing for and in the presence of Dr. Gutierres. Assessment: Epigastric pain is most likely due to CBD stone or pancreatitis. Other differential diagnoses include gastroenteritis. Cardiac etiology is unlikely given the nature of the pain and absence of associated cardiac symptoms, though the patient?s history of cardiac disease and ESRD on HD warrants consideration. Plan: CT abdomen/pelvis without contrast, ultrasound of the gallbladder and CBD to assess for stones or obstruction, pain medication, CBC and CMP, cardiac workup given the patient's history, including ECG, troponin. CT scan of abdomen/pelvis showed enlarged CBD at 9mm and gastritis. US of abdomen showed enlarged CBD without any stones. Chest xray shows pneumonia. Labs show no leukocytosis, HGB is low although patient is chronically low, UA positive for infection which patient reports she was started on antibiotics for yesterday. Patient data External records reviewed:: [facility] previous records (I reviewed ED visit on 02/24/2025 ) and EMS form Clinical information provided by:: patient and EMS Social determinants that could affect healthcare access:: none Patient has the following chronic illnesses:: hypertension, diabetes, hyperlipidemia, ESRD on HD M/W/F, anemia How is presenting disease/condition affected by chronic disease/condition?: exacerbated by Evaluation data The following diagnostics were reviewed and interpreted by me:: lab results, radiology exam(s) and EKG tracing(s) (03/24/2025 @ 09:41. NSR, LAD, rate 81, no ischemia, normal QT ) Lab and/or radiology exams considered but not ordered:: None Interpretation Summary: Ordering Physician: Alethea Lyons MD Date of Service: 03/24/25 Procedure(s): XR chest 1V portable Accession Number(s): [id number] cc: Alethea Lyons MD; Josias Hernandez MD; Augusto Ball MD~ Examination: AP chest single view Technique one AP portable upright chest single view Date and time: March 24, 2025, 10:46 AM Comparison February 24, 2025 INDICATIONS: Chest pain today. FINDINGS: Opacity left base retrocardiac obscuring detail left hemidiaphragm with air bronchograms Normal heart size Right lung clear Blunting of both costophrenic angles Severe osteopenia IMPRESSION: Left base opacity most consistent with pneumonia, recommend follow-up to document clearing Dictated By: Augusto Ball MD Signed By: <Electronically signed by Augusto Ball MD in OV> 03/24/25 1059 Ordering Physician: Alethea Lyons MD Date of Service: 03/24/25 Procedure(s): CT abdomen pelvis wo con Accession Number(s): [id number] cc: Alethea Lyons MD; Josias Hernandez MD; Augusto Ball MD~ Examination: CT abdomen and pelvis without contrast. Coronal 3-D reconstructions. Sagittal 2-D reconstructions. Date and time of exam:March 24, 2025 1105 hours Comparison February 08, 2025 INDICATIONS: Epigastric pain with nausea today CTDI: vol (mGy): 11.9 DLP: (mGycm): 713 Technique: Axial images of the abdomen have been obtained, 3 mm slice thickness Intravenous contrast material has not been administered. Low dose protocols were performed. One or more of the following dose reduction techniques were used; automated exposure control, adjustment of the mA and/or KV according to patient size, use of iterative reconstruction technique. Findings: Small right pleural effusion minimal left pleural effusion Pneumonia both bases Trace pericardial effusion No visualized liver or splenic lesion Absent gallbladder Common bile duct 9 mm No pancreatic mass Gastric mucosa appears mildly thickened Perinephric stranding Aorta normal size 12 mm fat-containing umbilical hernia Normal appendix No bowel obstruction Colonic diverticulosis, no diverticulitis Atrophic uterus Urinary bladder wall thickening up to 6 mm Severe osteopenia with chronic osteoporotic compression L2 IMPRESSION: Common bile duct 9 mm, clinical correlation advised Gastritis pattern 12 mm fat-containing umbilical hernia Normal appendix Urinary bladder wall thickening up to 6 mm, differential would include cystitis Dictated By: Augusto Ball MD Signed By: <Electronically signed by Augusto Ball MD in OV> 03/24/25 1134 Ordering Physician: Alethea Lyons MD Date of Service: 03/24/25 Procedure(s): US abdomen Accession Number(s): [id number] cc: Alethea Lyons MD; Josias Hernandez MD; Augusto Ball MD~ Examination: Abdomen sonogram, complete Date and time of exam: March 24, 2025 1139 hours INDICATIONS: Epigastric pain beginning 6 days ago. Technique: Multiple real-time grayscale transabdominal sonographic images of the abdomen have been obtained. Findings: Absent gallbladder Common bile duct 11 mm no stones noted Pancreatic head 2.5 cm Aorta not enlarged Liver 17.9 cm fatty infiltration lobular contour Normal hepatopedal portal venous flow Patent IVC Right kidney 9.4 cm renal cortex 1.7 cm Left kidney 11.1 cm cortex 2.2 cm Moderate renal parenchymal scar formation Spleen 11.8 cm IMPRESSION: Enlarged common bile duct, no definite common bile duct stones If biliary colic is a clinical consideration, consider MRCP follow-up Moderate hepatomegaly primary hepatocellular disease Dictated By: Augusto Ball MD Signed By: <Electronically signed by Augusto Ball MD in OV> 03/24/25 6573 Medications / Prescriptions Medications or Prescriptions considered but not ordered:: None Medication administrations:: Medication Administration History Hydromorphone HCl (Hydromorphone Inj 2 Mg/Ml Vial) 1 mg IVP Q6H PRN PRN Reason: PAIN Stop: 03/29/25 09:59 Last Admin: 03/24/25 10:50 Dose: 1 mg Documented By: VL Discontinued Medications Amoxicillin/Clavulanate Potassium (Amoxicillin/Pot Clav 875 Tablet) 1 tab PO X1 ONE Stop: 03/24/25 12:40 Azithromycin (Azithromycin 250 Mg Tablet) 500 mg PO X1 ONE Stop: 03/24/25 12:40 See above Consultations Consultation(s) initiated? (list below): No Diagnosis Differential diagnosis abdominal pain: abdominal pain, calculus of kidney, constipation, diverticulitis, gastroenteritis and pancreatitis Most likely diagnosis given after review of the tests above:: Lung nodules Chest pain Pneumonia Admission Indicated Admission indicated?: not indicated Admission Request Was there a request for admission?: No Disposition Plan Disposition Plan: Discharge Discharge Attestation Discharge Attestation: The patient and all family members were given an opportunity to ask questions and understood the discharge instructions. Discharge instructions specifically effects, indications for sooner follow up or return to the emergency department, and the expected course of current diagnosis. Patient condition: Stable Discharge Plan Plan Patient Disposition: HOME (Self Care) Prescriptions/Referrals Prescriptions/Med Rec: New amoxicillin-pot clavulanate [Augmentin] 500-125 mg tablet 1 tab PO BID Qty: 14 0RF azithromycin [Zithromax Z-Kenny] 250 mg tablet 250 mg PO QDAY 6 Days Qty: 6 0RF Rx Instructions: start on day 2 of therapy No Action atorvastatin 40 mg tablet 40 mg PO HS calcium acetate(phosphat bind) 667 mg tablet 667 mg PO TID hydroxyzine HCl 25 mg tablet 50 mg PO QID Xarelto 20 mg tablet 20 mg PO DAILY amlodipine [Norvasc] 10 mg tablet 10 mg PO QDAY Qty: 30 0RF meclizine 25 mg Tablet 25 mg PO TID MDD 100mg PRN (Reason: Vertigo) Qty: 90 0RF acetaminophen [Tylenol] 325 mg Tablet 650 mg PO PRN PRN (Reason: Mild Pain (Scale Score 1-4)) melatonin 3 mg Capsule 3 mg PO HS PRN (Reason: Insomnia) cephalexin 500 mg capsule 500 mg PO BID Qty: 14 0RF ondansetron 4 mg tablet,disintegrating 4 mg PO Q8H PRN (Reason: nausea and vomiting) Qty: 10 0RF cephalexin 500 mg capsule 500 mg PO BID Qty: 14 0RF gabapentin 300 mg capsule 300 mg PO QDAY Qty: 14 0RF prednisone 10 mg tablet See Taper PO QDAY Qty: 24 0RF Taper: Prednisone Taper 60 mg DAILY for 2 Days and 0 Hour 40 mg DAILY for 2 Days and 0 Hour 20 mg DAILY for 2 Days and 0 Hour 10 mg DAILY for 2 Days and 0 Hour Rx Instructions: 6 tablets a day for 2 days then 4 tabs a day for 2 days then 2 tablets a day for 2 days then 1 tablet a day for 2 days cefdinir 300 mg capsule 300 mg PO BID Qty: 14 0RF amoxicillin-pot clavulanate 500-125 mg tablet 1 tab PO BID Qty: 12 0RF Rx Instructions: Please take this medicine after hemodialysis. doxycycline hyclate 100 mg capsule 100 mg PO BID Qty: 13 0RF clonidine HCl 0.1 mg Tablet 0.1 mg PO HS tramadol 50 mg Tablet 50 mg PO [id number] PRN (Reason: Moderate Pain (Scale Score 5-6)) hydralazine 100 mg Tablet 100 mg PO TID B-complex with vitamin C Tablet 1 tab PO QDAY insulin glargine [Lantus Solostar U-100 Insulin] 100 unit/mL (3 mL) Insulin Pen 10 unit SUBCUT QPM ergocalciferol (vitamin D2) 62.5 mcg (2,500 unit) Capsule See Rx Instructions .ROUTE .COMPLEX Rx Instructions: 62.5 mcg orally DAILY ON SUNDAYS ondansetron HCl 4 mg Tablet 4 mg PO Q6H PRN (Reason: Nausea And Vomiting) carvedilol [Coreg] 3.125 mg Tablet 3.125 mg PO BID Rx Instructions: must administer with a meal/food docusate sodium 100 mg Tablet 100 mg PO QDAY insulin aspart U-100 100 unit/mL Cartridge 1 sliding scale dose SUBCUT USEASDIRECTD Referrals: Josias Hernandez MD [Primary Care Provider] - In 1 week Problem List Clinical Impression: Lung nodules, Chest pain Patient/Caregiver Discharge Instructions Print Language: Algerian Stand Alone Forms: [facility] Award Info., Patient Portal Info Letter
--- NOTE | 2025-03-24 09:40 | EKG_ITS ---
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
[2025-03-24 10:13] LABS: Basophils % (Auto) 1 % (0-2.5); Eosinophils % (Auto) 1 % (0-10); Hematocrit 35.4 % (36.0-46.0); Hemoglobin 11.6 g/dL (12.0-16.0); Immature Granulocytes % (Auto) 1 % (0-0); Immature Granulocytes Auto 0.05 Thou/mm3 (0.00-0.00); Lymphocytes # (Auto) 0.8 Thou/mm3 (1.0-4.8); Lymphocytes % (Auto) 18 % (10-50); Mean Corpuscular HGB Conc 32.8 g/dl (31.0-37.0); Mean Corpuscular Hemoglobin 33.6 pg (25.0-35.0); Mean Corpuscular Volume 103 fL (80-100); Monocytes # (Auto) 0.2 Thou/mm3 (0.0-0.8); Monocytes % (Auto) 4 % (0-12); Neutrophils # (Auto) 3.3 Thou/mm3 (1.8-7.7); Neutrophils % (Auto) 76 % (37-80); Nucleated Red Blood Cell % 0 /100 WBC (0); Platelet Count 157 Thou/mm3 (140-440); Red Blood Count 3.45 Miln/mm3 (4.00-5.20); White Blood Count 4.3 Thou/mm3 (3.6-11.0)
[2025-03-24 10:17] VITALS: BP 168/73; PULSE 77; RESP 25; TEMP 36.8; O2SAT 93
[2025-03-24 10:32] LABS: Alanine Aminotransferase 11 U/L (10-49); Albumin, Serum 3.2 gm/dL (3.5-5.0); Albumin/Globulin Ratio 0.7 (1.2-2.2); Alkaline Phosphatase 75 U/L (46-116); Anion Gap 8 (7-16); Aspartate Amino Transferase 32 U/L (0-34); BUN/Creatinine Ratio 5 Ratio (12-20); Bilirubin,Total 0.3 mg/dL (0.3-1.2); Blood Urea Nitrogen 13 mg/dL (9-23); Calcium 8.1 mg/dL (8.3-10.6); Calcium (Corrected) 8.7 mg/dL (8.5-10.1); Carbon Dioxide 29.1 mMol/L (20.0-31.0); Chloride 98 mMol/L (98-107); Creatinine (Component) 2.5 mg/dL (0.6-1.3); Estimated Creatinine Clearance 25.7 mL/min (>60); Globulin 4.3 gm/dL (2.3-3.5); Glucose 86 mg/dL (74-106); Lipase 21 U/L (12-53); Osmolality,Calculated 269 (275-295); Potassium 4.4 mMol/L (3.4-5.1); Sodium 135 mMol/L (136-145); Total Protein 7.5 gm/dL (5.7-8.2); Troponin I < 0.020 ng/mL (0.0-0.045); eGFR 22 See Note
--- NOTE | 2025-03-24 10:33 | XR_ITS ---
Examination: Abdomen sonogram, complete Date and time of exam: March 24, 2025 1139 hours INDICATIONS: Epigastric pain beginning 6 days ago. Technique: Multiple real-time grayscale transabdominal sonographic images of the abdomen have been obtained. Findings: Absent gallbladder Common bile duct 11 mm no stones noted Pancreatic head 2.5 cm Aorta not enlarged Liver 17.9 cm fatty infiltration lobular contour Normal hepatopedal portal venous flow Patent IVC Right kidney 9.4 cm renal cortex 1.7 cm Left kidney 11.1 cm cortex 2.2 cm Moderate renal parenchymal scar formation Spleen 11.8 cm IMPRESSION: Enlarged common bile duct, no definite common bile duct stones If biliary colic is a clinical consideration, consider MRCP follow-up Moderate hepatomegaly primary hepatocellular disease
--- NOTE | 2025-03-24 10:34 | XR_ITS ---
Examination: AP chest single view Technique one AP portable upright chest single view Date and time: March 24, 2025, 10:46 AM Comparison February 24, 2025 INDICATIONS: Chest pain today. FINDINGS: Opacity left base retrocardiac obscuring detail left hemidiaphragm with air bronchograms Normal heart size Right lung clear Blunting of both costophrenic angles Severe osteopenia IMPRESSION: Left base opacity most consistent with pneumonia, recommend follow-up to document clearing
[2025-03-24 10:38] LABS: B-Type Natriuretic Peptide 210 pg/mL (0-100)
--- NOTE | 2025-03-24 10:46 | XR_ITS ---
Examination: CT abdomen and pelvis without contrast. Coronal 3-D reconstructions. Sagittal 2-D reconstructions. Date and time of exam:March 24, 2025 1105 hours Comparison February 08, 2025 INDICATIONS: Epigastric pain with nausea today CTDI: vol (mGy): 11.9 DLP: (mGycm): 713 Technique: Axial images of the abdomen have been obtained, 3 mm slice thickness Intravenous contrast material has not been administered. Low dose protocols were performed. One or more of the following dose reduction techniques were used; automated exposure control, adjustment of the mA and/or KV according to patient size, use of iterative reconstruction technique. Findings: Small right pleural effusion minimal left pleural effusion Pneumonia both bases Trace pericardial effusion No visualized liver or splenic lesion Absent gallbladder Common bile duct 9 mm No pancreatic mass Gastric mucosa appears mildly thickened Perinephric stranding Aorta normal size 12 mm fat-containing umbilical hernia Normal appendix No bowel obstruction Colonic diverticulosis, no diverticulitis Atrophic uterus Urinary bladder wall thickening up to 6 mm Severe osteopenia with chronic osteoporotic compression L2 IMPRESSION: Common bile duct 9 mm, clinical correlation advised Gastritis pattern 12 mm fat-containing umbilical hernia Normal appendix Urinary bladder wall thickening up to 6 mm, differential would include cystitis
[2025-03-24] MEDS: HYDROmorphone INJ 2 MG/ML VIAL 1 MG IVP (10:50)
[2025-03-24 10:52] LABS: Collection Type, Urine Clean Catch; Squamous Epithelial Cell,Urine 0 /hpf (0-5)
[2025-03-24 11:09] LABS: Bacteria,Urine 3+; Bilirubin,Urine Negative (Negative); Blood,Urine 3+ (Negative); Color,Urine Dark-Brown (Lt Yel-Yel); Glucose, Urine Negative (Negative); Ketones,Urine Negative (Negative); Leukocyte Esterase,Urine Positive (Negative); Nitrite,Urine Negative (Negative); Protein,Urine 3+ (Neg - Trace); RBC,Urine 1413 /hpf (0-3); WBC,Urine 2299 /hpf (0-5)
--- NOTE | 2025-03-24 11:37 | PC.NURSE ---
Patient was brought in to ED by ambulance from dialysis center for abdominal pain. Patient does not know how much was removed during dialysis but predicts she was there for about one hour. Patient recently was diagnosed with UTI and taking antibiotics. Urine collected from patient had hematuria. Patient alert and oriented X4. Vitals stable. 1mg dilaudid given IV. Plan of care ongoing
[2025-03-24 11:47] LABS: Clarity,Urine Cloudy (Clear/Hazy); Culture Indicated,Urine Yes
[2025-03-24 12:00] VITALS: BP 158/70; PULSE 79; RESP 22; TEMP 37.3; O2SAT 98
[2025-03-24] MEDS: AMOXICILLIN/POT CLAV 875 TABLET 1 TAB PO (13:09)
[2025-03-24] MEDS: AZITHROMYCIN 250 MG TABLET 500 MG PO (13:09)
--- NOTE | 2025-03-24 13:24 | PC.NURSE ---
Attempted to call [facility] twice to see if patient will need to have transportation set up for discharge
[2025-03-24 13:38] VITALS: BP 159/96; PULSE 80; RESP 18; TEMP 37.1; O2SAT 97
--- NOTE | 2025-03-24 13:56 | PC.CC ---
ATIFWChuy Ramirez was consulted by ERIC Kramer for transportation back to [facility]. Patient is able to ambulate in her wheelchair. ASW set up transportation with [facility]. ASW provided update to bedside ERIC Kramer.
== END 2025-03-24 13:36 | disposition home or self-care (01) ==
PROVIDERS: Emergency Provider Emergency Medicine; PCP Family Medicine
DX: J18.9 Pneumonia, unspecified organism (principal); R91.1 Solitary pulmonary nodule; K83.8 Other specified diseases of biliary tract; K76.89 Other specified diseases of liver; K42.9 Umbilical hernia without obstruction or gangrene; N32.89 Other specified disorders of bladder; Z99.2 Dependence on renal dialysis; N18.6 End stage renal disease; E11.22 Type 2 diabetes mellitus with diabetic chronic kidney disease; K29.70 Gastritis, unspecified, without bleeding; E78.00 Pure hypercholesterolemia, unspecified; I13.2 Hypertensive heart and chronic kidney disease with heart failure and with stage 5 chronic kidney disease, or end stage renal disease; I50.9 Heart failure, unspecified
CPT/HCPCS: 36415; 71045; 74176; 76700; 80053; 81001; 83690; 83880; 84484; 85025; 87077; 87086; 87186; 93005; 96374; 99284; J1171; A9270

== ENCOUNTER 2025-03-27 17:54 | Inpatient (IN) | payer MEDICAID, SELFPAY ==
[2025-03-27 18:03] VITALS: BP 148/84; PULSE 85; RESP 22; TEMP 39.2; O2SAT 88
[2025-03-27 18:06] VITALS: O2SAT 97
[2025-03-27 18:21] VITALS: PULSE 82; RESP 18; O2SAT 98
[2025-03-27 19:53] VITALS: BP 175/90; PULSE 75; RESP 18; TEMP 37.4; O2SAT 96
[2025-03-27 21:02] VITALS: BP 163/82; PULSE 80; RESP 22; TEMP 37.3; O2SAT 98
--- NOTE | 2025-03-27 21:39 | XR_ITS ---
Examination: CT abdomen with intravenous contrast CT pelvis with intravenous contrast 2-D coronal reconstructions 2-D sagittal reconstructions Date and time of exam:March 28, 2025, 0358 hours. INDICATIONS: Left upper and left lower abdominal pain today. CTDI: vol (mGy) 13.1 DLP: (mGycm) 895 Technique: Multiple axial sections of the abdomen and pelvis have been obtained. 64 slice high-resolution scanner used. 3 mm axial sections have been obtained, post intravenous injection 30 cc Isovue 300 2-D sagittal, coronal reconstructions obtained. Low dose protocols were performed. One or more of the following dose reduction techniques were used; automated exposure control, adjustment of the mA and/or KV according to patient size, use of iterative reconstruction technique. Findings: Moderate enlargement security monitor with trace pericardial effusion Small bilateral pleural effusions Atelectasis versus pneumonia at the lung bases No visualized liver or splenic lesion Absent gallbladder Common bile duct 8 mm no stones Perinephric stranding Aorta normal size 10 mm fat-containing umbilical hernia Normal appendix Abundant stool in the rectosigmoid Atrophic anteverted uterus Urinary bladder wall thickening, mild Severe osteopenia with chronic osteoporotic compression L2 IMPRESSION: Moderate enlargement cardiac contour Small bilateral pleural effusions Atelectasis versus mild pneumonia at the lung bases Abundant stool in the rectosigmoid Mild thickening of the urinary bladder wall, cystitis included in the differential
--- NOTE | 2025-03-27 21:48 | EDNOTE_ITS ---
ED Abdominal Pain RME/HPI General Chief Complaint: Abdominal Pain Stated complaint: ABDOMINAL PAIN Time seen by provider: 03/27/25 19:57 Arrival date/time: 03/27/25 17:54 RME / HPI RME / HPI narrative: 60-year-old female with a past medical history of end-stage renal disease on hemodialysis M/W/F, diabetes, hypertension, blindness, pulmonary nodule, thyroid nodule, presents to the ED with worsening left-sided abdominal pain that has b een ongoing for the past 2 weeks. She was seen here on 03/24/2025 and diagnosed with left lower lobe pneumonia as well as UTI, and is currently taking Augmentin for her UTI and Zithromax for her pneumonia. She states that the pain waxes and wanes but overall is becoming worse in nature. Pain is worse with deep inspiration. She has had a recent dry cough. She has had nausea but no vomiting, no diarrhea and her last bowel movement was on 03/25/2025. She denies any fever or chills, shortness of breath or chest pain. Related Data Home Medications ?Medication ?Instructions ?Recorded ?Confirmed atorvastatin 40 mg tablet 40 mg PO HS 12/10/22 3 calcium acetate(phosphat bind) 667 667 mg PO TID 12/1009/02/23 mg tablet hydroxyzine HCl 25 mg tablet 50 mg PO QID 12/10/2203/20 rivaroxaban 20 mg tablet (Xarelto) 20 mg PO DAILY 11/2609/02/23 acetaminophen 325 mg tablet 650 mg PO PRN PRN Mild Greg n (Scale 01/10/23 09/02/23 (Tylenol) Score 1-4) melatonin 3 mg capsule 3 mg PO HS PRN Insomnia 12/2709/02/23 B-complex with vitamin C 1 tab PO QDAY 03/25/2309/02 clonidine HCl 0.1 mg tablet 0.1 mg PO HS 03/25/23 1203/20 ergocalciferol (vitamin D2) 62.5 See Rx Instructions . Route .COMPLEX 03/25/23 09/02/23 mcg (2,500 unit) capsule hydralazine 100 mg tablet 100 mg PO TID 03/25/2309/02 insulin glargine 100 unit/mL (3 10 unit subcut QPM 09/02/23 mL) subcutaneous pen (Lantus Solostar U-100 Insulin) ondansetron HCl 4 mg tablet 4 mg PO Q6H PRN Nausea And Vomiting 03/25/23 09/02/23 tramadol 50 mg tablet 50 mg PO [id number] PRN Moderat e Pain 03/25/23 09/02/23 (Scale Score 5-6) carvedilol 3.125 mg tablet (Coreg) 3.125 mg PO BID 03/2009/02/23 docusate sodium 100 mg tablet 100 mg PO QDAY 09/02/23 09/02/23 insulin aspart U-100 100 unit/mL 1 sliding scale dose subcut 09/02/23 09/02/23 subcutaneous cartridge USEASDIRECTD Previous Rx's ?Medication ?Instructions ?Recorded amlodipine 10 mg tablet (Norvasc) 10 mg PO QDAY #30 ta bs 12/11/22 meclizine 25 mg tablet 25 mg PO TID PRN Vertigo #90 tabs 12/18/22 cephalexin 500 mg capsule 500 mg PO BID #14 caps 03/19 cephalexin 500 mg capsule 500 mg PO BID #14 caps 03/19 ondansetron 4 mg disintegrating 4 mg PO Q8H PRN nausea and 03/19/24 tablet vomiting #10 tabs gabapentin 300 mg capsule 300 mg PO QDAY #14 caps 01/20 prednisone 10 mg tablet See Taper PO QDAY #24 tabs 0 01/29/25 cefdinir 300 mg capsule 300 mg PO BID #14 caps 02/08 amoxicillin 500 mg-potassium 1 tab PO BID #12 tabs clavulanate 125 mg tablet doxycycline hyclate 100 mg capsule 100 mg PO BID #13 c aps 02/24/25 amoxicillin 500 mg-potassium 1 tab PO BID #14 tabs clavulanate 125 mg tablet (Augmentin) azithromycin 250 mg tablet 250 mg PO QDAY Start this 0 03/24/25 (Zithromax Z-Kenny) prescription tomorrow 6 days #6 tabs Allergies Allergy/AdvReac Type Severity Reaction Status Date / Time levofloxacin Allergy Mild Vomiting Verified 02/24/25 07:54 Review of Systems Review of Systems Systems Reviewed: All systems reviewed, normal except as documented Past Medical History Past Medical History NEUROLOGIC: Positive Neurological Disorders and Cerebrovascular Accident; Negative Seizures CARDIAC: Positive Cardiac Disorders, Angina, Hypercholesterolemia, Congestive Heart Failure and Hypertension RESPIRATORY: Positive Chronic Obstructive Pulmonary Disease (COPD) and Pneumonia; Negative Asthma GASTROINTESTINAL: Negative Gastrointestinal Disorders or Gall Bladder Disease GENITOURINARY: Positive Genitourinary Disorders, Renal Disease and Dialysis REPRODUCTIVE: Positive Previous Pregnancies MUSCULOSKELETAL: Positive Musculoskeletal Disorders, Arthritis, Rheumatoid Arthritis and Osteoporosis ENT: Positive Blind and Deafness ENDOCRINE: Positive Endocrine Disorders and Diabetes Mellitus Type 2; Negative Diabetes Mellitus Type 1 HEMATOLOGIC: Positive Blood Disorders and Anemia; Negative Sickle Cell Disease PSYCHO/SOCIAL: Positive Depression and Anxiety OTHER HISTORY: Positive Hospitalization, Blood Transfusions, Chicken Pox and Measles; Negative Autoimmune Disease, Down Syndrome, Developmental Delay, Shingles, Falls, Blood Transfusion Reaction, Anesthesia Reactions or Cancer Family History FAMILY HISTORY: Positive Family Cardiac Disorders; Negative Family Psychiatric Problems, Family Respiratory Disorders, Family Gastrointestinal Problems, Family Cancer, Family Surgery or Family Anesthesia Reaction Surgical History SURGICAL: Positive Open Reduction Internal Fixation; Negative Mastectomy Social History SMOKING STATUS: Unknown if ever smoked SUBSTANCE USE: former substance user (quit 2 years ago (nonspecific on what she used)) ED Exam Narrative Physical exam: Alert and oriented, blind, 60-year-old, Citizen [place]-speaking female, laying flat on gurney, in no acute distress. Initial vital signs when triaged reveals a blood pressure of 148/84, pulse 85, respirations 22 and nonlabored, temp 102.6, O2 sat 88% on room air. She was placed on 4 L via nasal cannula. Current vital signs reveal blood pressure 163/82, pulse 80, respirations 22 nonlabored, temperature 99.2, O2 sat 98% on 2 L via nasal cannula. Cardiovascular regular rate and rhythm without murmurs, lungs appear clear, bowel sounds are hyperactive x 4 quadrants, soft, obese, tenderness to the left upper quadrant and left lower quadrant without rebound or guarding. 1-2+ nonpitting edema noted to bilateral lower extremities. Course Course Course Narrative: CBC reveals a normal white count of 3.6, low H&H of 10.7/32.2 and normal p latelets of 190. Sodium is 134, potassium 3.8, chloride 101, CO2 29, gap 4. BUN is normal at 14, creatinine is elevated at 3.0, osmolality low at 268, calcium low at 7.8. Normal phosphorus and magnesium, normal LFTs, normal amylase and lipase at 38/22. Troponin is less than 0.020 and BNP is mildly elevated at 149 which is improved since Thursday. XR chest reveals: FINDINGS: Worsening left lower lobe in the anterior segment left upper lobe pneumonia. Mild retrocardiac contour. Mild vascular congestion. IMPRESSION: Worsening left lung pneumonia Patient is failing outpatient oral antibiotic (Augmentin) therapy for pneumonia. Urinalysis is currently pending. Additional labs including COVID, influenza A/B, blood culture x 2, lactic acid, CRP, procalcitonin and repeat troponin are still pending. Dr. Casas, Energy Management Specialist in [place] consulted. Discussed [facility] protocol of the necessity for hemodialysis within 24 hours following administration of IV contrast. He indicates there is no such protocol and no literature indicating the need for hemodialysis within 24 hours following IV contrast . He approves the administration of IV contrast without need for dialysis within 24 hours following administration. Contacted urgent care technician, Andrew, and indicated patient is clear for CT of the abdomen and pelvis with contrast, per Dr. Casas, Energy Management Specialist. Ceftriaxone 1 g IV and Zithromax 500 mg IV ordered after blood cultures and lactic are drawn. Quality Measures none Orders Category Date Time Status Bedside COVID-19 Antigen Test NOW Care 03/27/25 21:57 Active Bedside Influenza A&B Antigen Test NOW Care 03/27/25 21:[address] Screening NOW Care 03/27/25 21:40 Active IV [Insert IV] NOW Care 03/27/25 21:39 Active NPO STAT Care 03/27/25 21:[address] abdomen pelvis w con Stat Exams 03/27/25 21:39 Ordered XR abdomen flat and uprght Stat Exams 03/28/25 01:36 Ordered XR chest 1V portable Stat Exams 03/27/25 21:57 Completed Amylase Stat Lab 03/27/25 22:08 Completed BNP [B-Type Natriuretic Peptide] Stat Lab 03/27/25 22:08 Completed Blood Culture (Lab) Stat Lab 03/28/25 01:07 Received CBC Stat Lab 03/27/25 22:08 Completed CRP [C-Reactive Protein] Stat Lab 03/28/25 01:00 Completed Comprehensive Metabolic Panel Stat Lab 03/27/25 22:08 Completed Drug Screen,Urine Stat Lab 03/27/25 21:39 Ordered Lactic Acid [Lactate (Lactic Acid)] Stat Lab 03/28/25 01:07 Completed Lipase Stat Lab 03/27/25 22:08 Completed Magnesium Stat Lab 03/27/25 22:08 Completed Phosphorous Stat Lab 03/27/25 22:08 Completed Procalcitonin Stat Lab 03/28/25 01:00 Completed Troponin I Stat Lab 03/27/25 22:08 Completed Troponin I Stat Lab 03/28/25 01:00 Completed Urinalysis Stat Lab 03/27/25 21:39 Ordered Urine Culture Stat Lab 03/27/25 21:39 Ordered Azithromycin Inj [Zithromax Inj] 500 mg Med 03/28/25 01:12 Active Sodium Chloride 0.9% 250 ml [Ns] 250 ml IV X1 HYDROmorphone INJ [Dilaudid Inj] Med 03/27/25 22:01 Discontinued 1 mg IVP X1 ONE Ondansetron Inj [Zofran Inj] Med 03/27/25 21:39 Discontinued 4 mg IVP X1 ONE cefTRIAXone/D5w 1gm IV premix [Rocephin/D5w 1gm IV Med 03/28/25 01:11 Discontinued premix] 1 gm in 50 ml IV X1 Vital Signs Vital signs: Vital Signs Temperature 102.6 F H 03/27/25 18:03 Pulse Rate 85 03/27/25 18:03 Respiratory Rate 22 H 03/27/25 18:03 Blood Pressure 148/84 H 03/27/25 18:03 Pulse Oximetry (%) 88 L 03/27/25 18:03 Oxygen Delivery Method Room Air 03/27/25 18:03 Abdominal Pain MDM MDM Narrative MDM Narrative:: 60-year-old female with a past medical history of end-stage renal disease on hemodialysis M/W/F, diabetes, hypertension, blindness, pulmonary nodule, thyroid nodule, presents to the ED with worsening left-sided abdominal pain that has been ongoing for the past 2 weeks. She was seen here on 03/24/2025 and diagnosed with left lower lobe pneumonia as well as UTI, and is currently taking Augmentin for her UTI and Zithromax for her pneumonia. She states that the pain waxes and wanes but overall is becoming worse in nature. Pain is worse with deep inspiration. She has had a recent dry cough. She has had nausea but no vomiting, no diarrhea and her last bowel movement was on 03/25/2025. She denies any fever or chills, shortness of breath or chest pain. Alert and oriented, blind, 60-year-old, Citizen [place]-speaking female, laying flat on gurney, in no acute distress. Initial vital signs when triaged reveals a blood pressure of 148/84, pulse 85, respirations 22 and nonlabored, temp 102.6, O2 sat 88% on room air. She was placed on 4 L via nasal cannula. Current vital signs reveal blood pressure 163/82, pulse 80, respirations 22 nonlabored, temperature 99.2, O2 sat 98% on 2 L via nasal cannula. Cardiovascular regular rate and rhythm without murmurs, lungs appear clear, bowel sounds are hyperactive x 4 quadrants, soft, obese, tenderness to the left upper quadrant and left lower quadrant without rebound or guarding. 1-2+ nonpitting edema noted to bilateral lower extremities. Left-sided upper and lower extremity weakness secondary to previous CVA. CBC reveals a normal white count of 3.6, low H&H of 10.7/32.2 and normal platelets of 190. Sodium is 134, potassium 3.8, chloride 101, CO2 29, gap 4. BUN is normal at 14, creatinine is elevated at 3.0, osmolality low at 268, calcium low at 7.8. Normal phosphorus and magnesium, normal LFTs, normal amylase and lipase at 38/22. Troponin is less than 0.020 and BNP is mildly elevated at 149 which is improved since Thursday. XR chest reveals: FINDINGS: Worsening left lower lobe in the anterior segment left upper lobe pneumonia. Mild retrocardiac contour. Mild vascular congestion. IMPRESSION: Worsening left lung pneumonia Patient is failing outpatient oral antibiotic (Augmentin) therapy for pneumonia. Urinalysis is currently pending. Additional labs including COVID, influenza A/B, blood culture x 2, lactic acid, CRP, procalcitonin and repeat troponin are still pending. Dr. Casas, Energy Management Specialist in [place] consulted. Discussed [facility] protocol of the necessity for hemodialysis within 24 hours following administration of IV contrast. He indicates there is no such protocol and no literature indicating the need for hemodialysis within 24 hours following IV contrast . He approves the administration of IV contrast without need for jayashree lysis within 24 hours following administration. Contacted urgent care technician, Andrew, and indicated patient is clear for CT of the abdomen and pelvis with contrast, per Dr. Casas, Energy Management Specialist. Urine culture from 03/24/2025 reveals E. coli and Klebsiella pneumoniae which are both sensitive to ceftriaxone. Ceftriaxone 1 g IV and Zithromax 500 mg IV ordered after blood cultures and lactic are drawn. Discussed case with Dr. Mirza, Hospitalist who agrees to evaluate the patient for possible admission. He evaluated the patient and would like an abdominal x-ray to rule out a small bowel obstruction that would need surgical intervention prior to acceptance for admission. She is a full code according to her POLST dated 12/18/2022. Patient data External records reviewed:: [facility] previous records Clinical information provided by:: patient Social determinants that could affect healthcare access:: none Patient has the following chronic illnesses:: End-stage renal disease on hemodialysis, insulin-dependent diabetes, hypertension, hyperlipidemia, history of CVA with left-sided deficit, CHF, history of methamphetamine abuse How is presenting disease/condition affected by chronic disease/condition?: exacerbated by Evaluation data The following diagnostics were reviewed and interpreted by me:: lab results Lab and/or radiology exams considered but not ordered:: N/A Interpretation Summary: CBC reveals a normal white count of 3.6, low H&H of 10.7/32.2 and normal platelets of 190. Sodium is 134, potassium 3.8, chloride 101, CO2 29, gap 4. BUN is normal at 14, creatinine is elevated at 3.0, osmolality low at 268, calcium low at 7.8. Normal phosphorus and magnesium, normal LFTs, normal amylase and lipase at 38/22. Troponin is less than 0.020 and BNP is mildly elevated at 149 which is improved since Thursday. XR chest reveals: FINDINGS: Worsening left lower lobe in the anterior segment left upper lobe pneumonia. Mild retrocardiac contour. Mild vascular congestion. Abdominal x-ray to rule out SBO ordered and pending. CT of the abdomen and pelvis to rule out diverticulitis originally ordered and is still currently pending. Medications / Prescriptions Medications or Prescriptions considered but not ordered:: N/A Medication administrations:: Medication Administration History Azithromycin 500 mg/ Sodium (Chloride) 250 mls @ 250 mls/hr IV X1 ONE Stop: 03/28/25 02:11 Discontinued Medications Hydromorphone HCl (Hydromorphone Inj 2 Mg/Ml Vial) 1 mg IVP X1 ONE Stop: 03/27/25 22:02 Last Admin: 03/27/25 22:52 Dose: 1 mg Documented By: CUONG Ceftriaxone Sodium/Dextrose (Rocephin/D5w 1gm Iv Premix) 1 gm in 50 mls @ 100 mls/hr IV X1 ONE Stop: 03/28/25 01:40 Ondansetron HCl (Ondansetron Inj 2 Mg/Ml Inj 2 Ml) 4 mg IVP X1 ONE; Protocol Stop: 03/27/25 21:40 Last Admin: 03/27/25 22:52 Dose: 4 mg Documented By: CUONG Ondansetron 4 mg IVP, Dilaudid 1 mg IVP x 1, ceftriaxone 1 g IV, Zithromax 500 mg IV. Consultations Consultation(s) initiated? (list below): Yes Consultation #1 (Physician, Specialty, Details): Dr. Casas, bond clerk in [place]. Discussed [facility] protocol of the necessity for hemodialysis within 24 hours following ad ministration of IV contrast. He indicates there is no such protocol and no literature indicating the need for hemodialysis within 24 hours following IV contrast . He approves the administration of IV contrast without need for dialysis within 24 hours following administration. Diagnosis Differential diagnosis abdominal pain: abdominal pain, acute appendicitis, constipation, diverticulitis, pancreatitis and small bowel obstruction Most likely diagnosis given after review of the tests above:: Left lower lobe pneumonia, failing outpatient therapy, UTI, abdominal pain with concern for diverticulitis versus small bowel obstruction. Admission Indicated Admission indicated?: indicated Explain why admission is indicated or not indicated:: Patient is failing outpatient therapy for left lower lobe pneumonia due to worsening chest x-ray. Admission Request Was there a request for admission?: Yes Admission Attestation Admission request attestation: Discussed case with Dr. Mirza from Hospitalist service regarding admission. Discussed patients ED course, exam findings, labs, and radiology results. The Hospitalist agrees to evaluate the patient for possible admission after imaging studies are complete. Disposition Plan Disposition Plan: Admit Discharge Plan Plan Patient Disposition: Admit Acute Care w/in Hospital Discharge Disposition comment: Stable Prescriptions/Referrals Prescriptions/Med Rec: No Action atorvastatin 40 mg tablet 40 mg PO HS calcium acetate(phosphat bind) 667 mg tablet 667 mg PO TID hydroxyzine HCl 25 mg tablet 50 mg PO QID Xarelto 20 mg tablet 20 mg PO DAILY amlodipine [Norvasc] 10 mg tablet 10 mg PO QDAY Qty: 30 0RF meclizine 25 mg Tablet 25 mg PO TID MDD 100mg PRN (Reason: Vertigo) Qty: 90 0RF acetaminophen [Tylenol] 325 mg Tablet 650 mg PO PRN PRN (Reason: Mild Pain (Scale Score 1-4)) melatonin 3 mg Capsule 3 mg PO HS PRN (Reason: Insomnia) cephalexin 500 mg capsule 500 mg PO BID Qty: 14 0RF ondansetron 4 mg tablet,disintegrating 4 mg PO Q8H PRN (Reason: nausea and vomiting) Qty: 10 0RF cephalexin 500 mg capsule 500 mg PO BID Qty: 14 0RF gabapentin 300 mg capsule 300 mg PO QDAY Qty: 14 0RF prednisone 10 mg tablet See Taper PO QDAY Qty: 24 0RF Taper: Prednisone Taper 60 mg DAILY for 2 Days and 0 Hour 40 mg DAILY for 2 Days and 0 Hour 20 mg DAILY for 2 Days and 0 Hour 10 mg DAILY for 2 Days and 0 Hour Rx Instructions: 6 tablets a day for 2 days then 4 tabs a day for 2 days then 2 tablets a day for 2 days then 1 tablet a day for 2 days cefdinir 300 mg capsule 300 mg PO BID Qty: 14 0RF amoxicillin-pot clavulanate 500-125 mg tablet 1 tab PO BID Qty: 12 0RF Rx Instructions: Please take this medicine after hemodialysis. doxycycline hyclate 100 mg capsule 100 mg PO BID Qty: 13 0RF amoxicillin-pot clavulanate [Augmentin] 500-125 mg tablet 1 tab PO BID Qty: 14 0RF azithromycin [Zithromax Z-Kenny] 250 mg tablet 250 mg PO QDAY 6 Days Qty: 6 0RF Rx Instructions: start on day 2 of therapy clonidine HCl 0.1 mg Tablet 0.1 mg PO HS tramadol 50 mg Tablet 50 mg PO [id number] PRN (Reason: Moderate Pain (Scale Score 5-6)) hydralazine 100 mg Tablet 100 mg PO TID B-complex with vitamin C Tablet 1 tab PO QDAY insulin glargine [Lantus Solostar U-100 Insulin] 100 unit/mL (3 mL) Insulin Pen 10 unit SUBCUT QPM ergocalciferol (vitamin D2) 62.5 mcg (2,500 unit) Capsule See Rx Instructions .ROUTE .COMPLEX Rx Instructions: 62.5 mcg orally DAILY ON SUNDAYS ondansetron HCl 4 mg Tablet 4 mg PO Q6H PRN (Reason: Nausea And Vomiting) carvedilol [Coreg] 3.125 mg Tablet 3.125 mg PO BID Rx Instructions: must administer with a meal/food docusate sodium 100 mg Tablet 100 mg PO QDAY insulin aspart U-100 100 unit/mL Cartridge 1 sliding scale dose SUBCUT USEASDIRECTD Referrals: No Primary/Family,Physician [Primary Care Provider] - In 1 week Problem List Clinical Impression: Pneumonia, Abdominal pain, UTI (urinary tract infection), bacterial Patient/Caregiver Discharge Instructions Print Language: Citizen Of [place] Stand Alone Forms: [employer] Award Info., Patient Portal Info Letter PA/SENIOR INFRASTRUCTURE ARCHITECT Supervising Physician PA/SENIOR INFRASTRUCTURE ARCHITECT Supervising Physician: Dr. Ortiz
--- NOTE | 2025-03-27 21:57 | XR_ITS ---
Examination: AP chest single view TECHNIQUE: AP portable upright chest single view Date and time: March 27, 2025, 2206 hours Comparison March 24, 2025 INDICATIONS: Worsening left-sided chest and abdominal pain FINDINGS: Worsening left lower lobe in the anterior segment left upper lobe pneumonia Mild retrocardiac contour. Mild vascular congestion IMPRESSION: Worsening left lung pneumonia
[2025-03-27 22:24] LABS: Basophils # (Auto) 0.0 Thou/mm3 (0.0-0.2); Basophils % (Auto) 0 % (0-2.5); Eosinophils # (Auto) 0.0 Thou/mm3 (0.0-0.5); Eosinophils % (Auto) 1 % (0-10); Hematocrit 32.2 % (36.0-46.0); Hemoglobin 10.7 g/dL (12.0-16.0); Immature Granulocytes Auto 0.03 Thou/mm3 (0.00-0.00); Lymphocytes # (Auto) 0.8 Thou/mm3 (1.0-4.8); Lymphocytes % (Auto) 22 % (10-50); Mean Corpuscular HGB Conc 33.2 g/dl (31.0-37.0); Mean Corpuscular Hemoglobin 33.0 pg (25.0-35.0); Mean Corpuscular Volume 99 fL (80-100); Monocytes # (Auto) 0.2 Thou/mm3 (0.0-0.8); Monocytes % (Auto) 6 % (0-12); Neutrophils # (Auto) 2.5 Thou/mm3 (1.8-7.7); Neutrophils % (Auto) 70 % (37-80); Nucleated Red Blood Cell # 0.00 Thou/mm3 (0.00-0.00); Nucleated Red Blood Cell % 0 /100 WBC (0); Platelet Count 190 Thou/mm3 (140-440); RDW Standard Deviation 49.9 fL (36.4-46.3); Red Blood Count 3.24 Miln/mm3 (4.00-5.20); White Blood Count 3.6 Thou/mm3 (3.6-11.0)
[2025-03-27 22:36] LABS: B-Type Natriuretic Peptide 149 pg/mL (0-100)
[2025-03-27 22:39] LABS: Alanine Aminotransferase 10 U/L (10-49); Albumin, Serum 2.9 gm/dL (3.5-5.0); Albumin/Globulin Ratio 0.7 (1.2-2.2); Alkaline Phosphatase 74 U/L (46-116); Amylase 38 U/L (30-118); Anion Gap 4 (7-16); Aspartate Amino Transferase 22 U/L (0-34); BUN/Creatinine Ratio 5 Ratio (12-20); Bilirubin,Total 0.3 mg/dL (0.3-1.2); Blood Urea Nitrogen 14 mg/dL (9-23); Calcium 7.8 mg/dL (8.3-10.6); Calcium (Corrected) 8.7 mg/dL (8.5-10.1); Carbon Dioxide 29.0 mMol/L (20.0-31.0); Chloride 101 mMol/L (98-107); Creatinine (Component) 3.0 mg/dL (0.6-1.3); Globulin 4.1 gm/dL (2.3-3.5); Glucose 104 mg/dL (74-106); Lipase 22 U/L (12-53); Magnesium 1.9 mg/dL (1.6-2.6); Osmolality,Calculated 268 (275-295); Phosphorous 3.1 mg/dL (2.4-5.1); Potassium 3.8 mMol/L (3.4-5.1); Sodium 134 mMol/L (136-145); Total Protein 7.0 gm/dL (5.7-8.2); Troponin I < 0.020 ng/mL (0.0-0.045); eGFR 17 See Note
[2025-03-27] MEDS: ONDANSETRON INJ 2 MG/ML INJ 2 ML 4 MG IVP (22:52)
[2025-03-27] MEDS: HYDROmorphone INJ 2 MG/ML VIAL 1 MG IVP (22:52)
[2025-03-27 23:21] VITALS: BP 161/96; PULSE 75; RESP 18; TEMP 37.6; O2SAT 98
[2025-03-28] VITALS (10 sets, daily range): BP systolic 130–172; BP diastolic 68–87; PULSE 65–77; RESP 17–20; TEMP 36.3–37.3; O2SAT 96–100; BMI 38.1; BMI 37.5
[2025-03-28 01:15] LABS: Lactate (Lactic Acid) 1.1 mMol/L (0.4-2.0)
--- NOTE | 2025-03-28 01:36 | XR_ITS ---
Examination: Abdomen 2 views TECHNIQUE: AP supine AP upright abdomen 2 views Date and time: March 28, 2025, 0211 hours INDICATIONS: Left upper abdominal pain left lower abdominal pain beginning 2 weeks ago FINDINGS: Surgical clips upper right abdomen Minimal air distended small bowel loops Moderate stool throughout the colon No free air IMPRESSION: Minimal small bowel ileus No obstruction
[2025-03-28 01:41] LABS: C-Reactive Protein 9.0 mg/dL (0.0-0.9); Procalcitonin 0.47 ng/ml (0.0-0.49); Troponin I < 0.020 ng/mL (0.0-0.045)
[2025-03-28] MEDS: cefTRIAXone/D5w 1gm IV premix 1 GM/50 ML BAG IV (03:00)
[2025-03-28 04:10] LABS: Collection Type, Urine Catheter
[2025-03-28 04:16] LABS: Bilirubin,Urine Negative (Negative); Blood,Urine 1+ (Negative); Clarity,Urine Clear (Clear/Hazy); Color,Urine Yellow (Lt Yel-Yel); Glucose, Urine Trace (Negative); Ketones,Urine Negative (Negative); Leukocyte Esterase,Urine Positive (Negative); Nitrite,Urine Negative (Negative); PH,Urine 7.0 (5.0-7.0); Protein,Urine 2+ (Neg - Trace); RBC,Urine 15 /hpf (0-3); Specific Gravity,Urine 1.018 (1.001-1.035); Squamous Epithelial Cell,Urine 3 /hpf (0-5); Urobilinogen,Urine Negative mg/dL (0.0-1.0); WBC,Urine 31 /hpf (0-5)
[2025-03-28 04:31] LABS: Amphetamine/Methamp Scrn,U Negative (Negative); Barbiturate Screen,Urine Negative (Negative); Benzodiazepines Screen,Urine Negative (Negative); Benzoylecgonine Screen, Ur Negative (Negative); Fentanyl Screen,Urine Negative (Negative); Opiate Screen,Urine Positive (Negative); THC Screen,Urine Negative (Negative)
--- NOTE | 2025-03-28 05:29 | PRELIM_ITS ---
CT scan of the abdomen and pelvis with intravenous contrast (axial sections with sagittal and coronal reformats). March 28, 2025 at 0358 hours Clinical History: Left upper quadrant/left lower quadrant pain. Comparison: No prior study is available for comparison. Findings: Gallbladder is surgically absent. The liver, spleen, pancreas and adrenals are unremarkable . There is nonspecific bilateral perinephric stranding. There is lobular contour the kidney suggestive of scarring which may be related to prior infection or prior ischemia. There is mild circumferential urinary bladder wall thickening. Senescent calcifications noted along the uterus. There is underdistention of the stomach which limits evaluation. There is no bowel obstruction. Appendix is normal. There is no free intraperitoneal air or fluid. There is no abdominal or pelvic lymphadenopathy. There are small bilateral pleural effusions and a small pericardial effusion. There is a 1.4 cm nonspecific anterior diaphragmatic lymph node. There is bibasilar airspace disease which may represent atelectasis and/or pneumonia. There is no acute osseous abnormality. There is old moderate L2 compression fracture. There is degenerative change in the spine with multilevel foraminal and spinal canal stenosis. Impression: 1. Possible cystitis. Recommend clinical correlation. 2. No bowel obstruction. Normal appendix. 3. Small pericardial effusion. Small bilateral pleural effusions. Bibasilar airspace disease may represent atelectasis and/or pneumonia. 4. Old moderate L2 compression fracture. Report Electronically Signed By: Logan Humphries 03/28/2025 5:29:46 AM [EST]
--- NOTE | 2025-03-28 05:38 | EDNOTE_ITS ---
Emergency Room Addendum Addendum Narrative: 0100: Care assumed from Alisa Gudino PA-C. Past medical, surgical, social and family history reviewed. Vitals and home medications reviewed. Results and treatment plan discussed. I will assume the care of the patient at this time and will follow the patient, pending CT abdomen pelvis. Please refer to the emergency department record for history and examination from initial visit. 0539: Discussed case with the resident physician, attending Dr. Duran from Hospitalist service regarding admission. Discussed patients ED course, exam findings, labs, and radiology results. The Hospitalist agrees to accept the patient for admission. RADIOLOGY RESULTS: Telerad Preliminary Report Draft Patient: IGOR HINES [facility]. Record#: [id number] Birthdate: 1965 Age/Sex: 60 / F Location: [facility] Attending Dr: Ordering Physician: Date of Service: Procedure(s): Accession Number(s): cc: ~ CT scan of the abdomen and pelvis with intravenous contrast (axial sections with sagittal and coronal reformats). March 28, 2025 at 0358 hours Clinical History: Left upper quadrant/left lower quadrant pain. Comparison: No prior study is available for comparison. Findings: Gallbladder is surgically absent. The liver, spleen, pancreas and adrenals are unremarkable . There is nonspecific bilateral perinephric stranding. There is lobular contour the kidney suggestive of scarring which may be related to prior infection or prior ischemia. There is mild circumferential urinary bladder wall thickening. Senescent calcifications noted along the uterus. There is underdistention of the stomach which limits evaluation. There is no bowel obstruction. Appendix is normal. There is no free intraperitoneal air or fluid. There is no abdominal or pelvic lymphadenopathy. There are small bilateral pleural effusions and a small pericardial effusion. There is a 1.4 cm nonsp ecific anterior diaphragmatic lymph node. There is bibasilar airspace disease which may represent atelectasis and/or pneumonia. There is no acute osseous abnormality. There is old moderate L2 compression fracture. There is degenerative change in the spine with multilevel foraminal and spinal canal stenosis. Impression: 1. Possible cystitis. Recommend clinical correlation. 2. No bowel obstruction. Normal appendix. 3. Small pericardial effusion. Small bilateral pleural effusions. Bibasilar airspace disease may represent atelectasis and/or pneumonia. 4. Old moderate L2 compression fracture. Report Electronically Signed By: Logan Humphries 03/28/2025 5:29:46 AM
[2025-03-28] MEDS: AZITHROMYCIN INJ 500 MG in SODIUM CHLORIDE 0.9% 250 ML 250 ML 250 MG IV (05:40)
--- NOTE | 2025-03-28 06:12 | ECHO_ITS ---
Transthoracic Echo Report Ht (in): 61 Wt (lb): 202 Exam Location: Echo Lab Status: Emergency [employer] Chief: Nayla Nix Indications: Procedure Performed: BP: 157 / 49 HR: 76 Technical Quality: Techcially Difficult Study-Patient asked to stop testing due to abdominal pain MEASUREMENTS (Male / Female) Normal Values 2D ECHO LV Diastolic Diameter PLAX 3.8 cm 4.2 - 5.9 / 3.9 - 5.3 cm LV Systolic Diameter PLAX 2.0 cm IVS Diastolic Thickness 1.2 cm 0.6 - 1.0 / 0.6 - 0.9 cm LVPW Diastolic Thickness 1.2 cm 0.6 - 1.0 / 0.6 - 0.9 cm LV Relative Wall Thickness 0.6 LVOT Diameter 2.0 cm LA Volume Index 37.3 cm?/m? 16 - 28 cm?/m? DOPPLER AV Peak Velocity 128.0 cm/s AV Peak Gradient 6.6 mmHg LVOT Peak Velocity 94.1 cm/s LVOT Peak Gradient 3.5 mmHg AV Area Cont Eq pk 2.3 cm? MV Area PHT 3.1 cm? Mitral E Point Velocity 75.2 cm/s Mitral A Point Velocity 86.3 cm/s Mitral E to A Ratio 0.9 LV E' Lateral Velocity 5.1 cm/s Mitral E to LV E' Lateral Ratio 14.7 LV E' Septal Velocity 5.0 cm/s Mitral E to LV E' Septal Ratio 15.0 TR Peak Velocity 243.0 cm/s TR Peak Gradient 23.6 mmHg PV Peak Velocity 103.0 cm/s PV Peak Gradient 4.2 mmHg FINDINGS Left Ventricle Normal left ventricular size and systolic function with no obvious regional wall motion abnormalities. Mild left ventricular hypertrophy. Normal left ventricular diastolic filling pattern for age. The ejection fraction is visually estimated at 60 %. Right Ventricle The right ventricle is not well visualized. The estimated right ventricular systolic pressure, 23 mmHg. Left Atrium The left atrial cavity size is moderately increased. Right Atrium The right atrium is normal by two-dimensional imaging, color flow and Doppler imaging with no structural abnormalities, no thrombus formation present. Atrial Septum The interatrial septum appears normal with no evidence of a shunt. Aorta The aorta is normal by two-dimensional, color flow and Doppler interrogation. Mitral Valve The mitral valve annulus is mildly calcified without stenosis. There is trace mitral regurgitation. Aortic Valve The aortic valve is trileaflet and mildly sclerotic without stenosis. There is no significant aortic valve regurgitation. Tricuspid Valve The tricuspid valve is normal by two-dimensional, color flow and Doppler interrogation. There is trace tricuspid valve regurgitation. Pulmonic Valve The pulmonic valve is not well visualized. There is no significant pulmonic valve regurgitation. Vessels The pulmonary artery appears normal. The inferior vena cava pulmonary and hepatic veins appear normal. Pericardium The pericardium is normal by two-dimensional imaging. There is no significant pericardial effusion. CONCLUSIONS Indications: CHF Normal LV size and function. Estimated EF 60 -65%. Stage 1 diastolic dysfunction. Normal RV size and function. RVSP at 30 mm hg. Mild MAC. Mild AV Sclerosis. Trace MR and TR. Mild LA dilatation. No Perlicardial Effusion. Anshul Dick (Electronically Signed) Final Date: 28 March 2025 19:28
--- NOTE | 2025-03-28 06:15 | PD.RESHP ---
Documentation for date of: 03/28/25 HPI History of Present Illness Chief complaint: abdominal pain History of present illness: 60-year-old female with past medical history of ESRD (HD on MWF), hypertension, hyperlipidemia, DM2, and past CVA was admitted to the hospital on 03/28/2025 after come to the ED with complaints of abdominal pain on the left side with nausea and not been able to pass a bowel movement for the past 3 days. Patient was recently seen in the ED around 4 days ago due to chest pain and was found to have a UTI for which patient was prescribed antibiotics, but patient has been spiking fevers and culture taken on previous ER visit showed resistance to ampicillin, Cipro, levofloxacin, and ampicillin/sulbactam. Patient also states that she has been having a cough since she came into the ED and that is new for her as she normally does not have cough. She also mentions she had shortness of breath with she states that even though she is pretty weak and walks very short distances she becomes very short of breath at this time. Patient also mentioned that she urinates around 1 time a day and that been draining recently as well. Otherwise patient denied having any chest pain, vomiting, blood in the stool, or flank pain. No other new complaints at this time. ED course: Initially came in tachypneic, febrile, hypoxic, and hypertensive. Initial labs were relevant for low hemoglobin (10.7), elevated CRP, elevated BNP, and UA was positive for RBCs and WBC. Initial imaging included chest x-ray which showed vascular congestion and worsening left lung pneumonia. Abdomen/pelvis CT preliminary report showed no SBO, possible cystitis, possible prior kidney infection, and small pericardial effusions and pleural effusions as well as again noted pneumonia. Of note previous abdomen/pelvis CT on 03/24/2025 that showed perinephric stranding. PMH: As above Social Hx: Denies current smoking, alcohol, or drugs Surgical Hx: Cholecystectomy Medications: Medication reconciliation pending Review of Systems Review of Systems Systems Reviewed: All systems reviewed, normal except as documented Past Medical History Past Medical History NEUROLOGIC: Positive Neurological Disorders and Cerebrovascular Accident; Negative Seizures CARDIAC: Positive Cardiac Disorders, Angina, Hypercholesterolemia, Congestive Heart Failure and Hypertension RESPIRATORY: Positive Chronic Obstructive Pulmonary Disease (COPD) and Pneumonia; Negative Asthma GASTROINTESTINAL: Negative Gastrointestinal Disorders or Gall Bladder Disease GENITOURINARY: Positive Genitourinary Disorders, Renal Disease and Dialysis REPRODUCTIVE: Positive Previous Pregnancies MUSCULOSKELETAL: Positive Musculoskeletal Disorders, Arthritis, Rheumatoid Arthritis and Osteoporosis ENT: Positive Blind and Deafness ENDOCRINE: Positive Endocrine Disorders and Diabetes Mellitus Type 2; Negative Diabetes Mellitus Type 1 HEMATOLOGIC: Positive Blood Disorders and Anemia; Negative Sickle Cell Disease PSYCHO/SOCIAL: Positive Depression and Anxiety OTHER HISTORY: Positive Hospitalization, Blood Transfusions, Chicken Pox and Measles; Negative Autoimmune Disease, Down Syndrome, Developmental Delay, Shingles, Falls, Blood Transfusion Reaction, Anesthesia Reactions or Cancer Family History FAMILY HISTORY: Positive Family Cardiac Disorders; Negative Family Psychiatric Problems, Family Respiratory Disorders, Family Gastrointestinal Problems, Family Cancer, Family Surgery or Family Anesthesia Reaction Surgical History SURGICAL: Positive Open Reduction Internal Fixation; Negative Mastectomy Social History SMOKING STATUS: Unknown if ever smoked SUBSTANCE USE: former substance user (quit 2 years ago (nonspecific on what she used)) Exam Vital Signs Temp Pulse Resp BP Pulse Ox O2 Del Method O2 Flow Rate 99.6 F 75 18 161/96 H 98 Room Air 2 03/27/25 23:21 03/27/25 23:21 03/27/25 23:21 03/27/25 23:21 03/27/25 23:21 03/27/25 23:21 03/27/25 21:02 Narrative Exam General: A/O x3, no acute distress Eyes: PERRL, EOMI. Anicteric, blind Ears: No ear pain, no ear discharge, Hearing grossly intact. Nose: No nasal discharge. Mouth/Throat: Moist mucous membranes, no redness, no lesions. Neck: Neck supple, non-tender, no cervical lymphadenopathy. Lungs: Decreased Marj Lower lobes, No accessory muscle use. Cardio: Normal S1/S2, regular rhythm, no murmurs, no JVD Abdomen: Soft,tender in L side, palpable stool in L side, peristalsis present, but hypoactive in LLQ, no guarding or rebound. Extremities: Symmetrical, no significant deformities, no peripheral edema , non-tender, peripheral pulses presents. Skin: No rashes, no lesions, warm to touch. Neuro: Strength Left MARJ UE/LE decreased when compared to R side. No aphasia, Blind at baseline, no facial asymmetry Results: Labs 03/27/25 22:08 03/27/25 22:08 Labs: Short CBC 03/27/25 Range/Units 22:08 WBC 3.6 (3.6-11.0) Thou/mm3 Hgb 10.7 L (12.0-16.0) g/dL Hct 32.2 L (36.0-46.0) % Plt Count 190 D (140-440) Thou/mm3 BMP 03/27/25 22:08 Sodium 134 L Potassium 3.8 Chloride 101 Carbon Dioxide 29.0 BUN 14 Creatinine 3.0 H D Glucose 104 Calcium 7.8 L Cardiac Enzymes 03/27/25 03/28/25 Range/Units 22:08 01:00 Troponin I < 0.020 < 0.020 (0.0-0.045) ng/mL Liver Function 03/27/25 Range/Units 22:08 Total Bilirubin 0.3 (0.3-1.2) mg/dL AST 22 (0-34) U/L ALT 10 (10-49) U/L Alkaline Phosphatase 74 (46-116) U/L Albumin 2.9 L (3.5-5.0) gm/dL Urine 03/28/25 Range/Units 03:30 Urine Color Yellow (Lt Yel-Yel) Urine Clarity Clear (Clear/Hazy) Urine pH 7.0 (5.0-7.0) Ur Specific Huffman 1.018 (1.001-1.035) Urine Protein 2+ A (Neg - Trace) Urine Glucose (UA) Trace (Negative) Quality Measures Quality Measures none Medications Home Medications and Allergies Home Medications ?Medication ?Instructions ?Recorded ?Confirmed ?Type atorvastatin 40 mg tablet 40 mg PO HS 12/10/22 09/02/23 History calcium acetate(phosphat bind) 667 667 mg PO TID 12/10/22 09/02/23 History mg tablet hydroxyzine HCl 25 mg tablet 50 mg PO QID 12/10/22 09/02/23 History rivaroxaban 20 mg tablet (Xarelto) 20 mg PO DAILY 12/10/22 09/02/23 History acetaminophen 325 mg tablet 650 mg PO PRN PRN Mild Pain (Scale 01/10/23 09/02/23 History (Tylenol) Score 1-4) melatonin 3 mg capsule 3 mg PO HS PRN Insomnia 01/10/23 09/02/23 History B-complex with vitamin C 1 tab PO QDAY 03/25/23 09/02/23 History clonidine HCl 0.1 mg tablet 0.1 mg PO HS 03/25/23 09/02/23 History ergocalciferol (vitamin D2) 62.5 See Rx Instructions .Route .COMPLEX 03/25/23 09/02/23 History mcg (2,500 unit) capsule hydralazine 100 mg tablet 100 mg PO TID 03/25/23 09/02/23 History insulin glargine 100 unit/mL (3 10 unit subcut QPM 03/25/23 09/02/23 History mL) subcutaneous pen (Lantus Solostar U-100 Insulin) ondansetron HCl 4 mg tablet 4 mg PO Q6H PRN Nausea And Vomiting 03/25/23 09/02/23 History tramadol 50 mg tablet 50 mg PO [id number] PRN Moderate Pain 03/25/23 09/02/23 History (Scale Score 5-6) carvedilol 3.125 mg tablet (Coreg) 3.125 mg PO BID 09/02/23 09/02/23 History docusate sodium 100 mg tablet 100 mg PO QDAY 09/02/23 09/02/23 History insulin aspart U-100 100 unit/mL 1 sliding scale dose subcut 09/02/23 09/02/23 History subcutaneous cartridge [id number] Allergies Allergy/AdvReac Type Severity Reaction Status Date / Time levofloxacin Allergy Mild Vomiting Verified 02/24/25 07:54 Visit Medications Acetaminophen (Acetaminophen 325 Mg Tablet) 650 mg PO Q6H PRN PRN Reason: Fever >100.4 Stop: 04/27/25 06:09 Acetaminophen (Acetaminophen 325 Mg Tablet) 650 mg PO Q6H PRN PRN Reason: PAIN SCALE 1-3 (mild Stop: 04/27/25 06:09 Dextrose (Dextrose 50%-Water Inj 50 Ml Syringe) 25 ml IV Q15MIN PRN PRN Reason: BG 50-70 responsive npo pt Stop: 04/27/25 06:09 Dextrose (Dextrose 50%-Water Inj 50 Ml Syringe) 50 ml IV Q15MIN PRN PRN Reason: BG <50 OR BG <70 & pt unresponsive Stop: 04/27/25 06:09 Glucagon (Glucagon Inj 1 Mg Vial) 1 mg IM Q15MIN PRN PRN Reason: BG <70, and no IV access Heparin Sodium (Porcine) (Heparin Sod Inj 5000 Unit/Ml Vial) 5,000 unit SC Q8HR [facility] Stop: 04/11/25 13:59 Insulin Human Lispro (Insulin Lispro (Admelog) 1 Unit/0.01 Ml Unit) 0 unit SC AC [facility]; Protocol Stop: 04/27/25 07:29 Lactulose (Lactulose Syrup 20 Gm/30 Ml Udc) 20 gm PO QDAY [facility]; Protocol Stop: 04/27/25 08:59 Ondansetron HCl (Ondansetron Inj 2 Mg/Ml Inj 2 Ml) 4 mg IVP Q6H PRN; Protocol PRN Reason: NAUSEA OR VOMITING Stop: 04/27/25 06:09 Sennosides (Senna Tablet) 1 tab PO QDAY [facility]; Protocol Stop: 04/27/25 08:59 Discontinued Medications Hydromorphone HCl (Hydromorphone Inj 2 Mg/Ml Vial) 1 mg IVP X1 ONE Stop: 03/27/25 22:02 Last Admin: 03/27/25 22:52 Dose: 1 mg Ceftriaxone Sodium/Dextrose (Rocephin/D5w 1gm Iv Premix) 1 gm in 50 mls @ 100 mls/hr IV X1 ONE Stop: 03/28/25 01:40 Last Infusion: 03/28/25 03:30 Dose: Infused Azithromycin 500 mg/ Sodium (Chloride) 250 mls @ 250 mls/hr IV X1 ONE Stop: 03/28/25 02:11 Last Admin: 03/28/25 05:40 Dose: 250 mls/hr Ondansetron HCl (Ondansetron Inj 2 Mg/Ml Inj 2 Ml) 4 mg IVP X1 ONE; Protocol Stop: 03/27/25 21:40 Last Admin: 03/27/25 22:52 Dose: 4 mg Assessment & Plan Plan 60-year-old female with past medical history of ESRD (HD on MWF), hypertension, hyperlipidemia, DM2, and past CVA was admitted to the hospital on 03/28/2025 for pyelonephritis and complicated UTI that failed outpatient treatment as well as community-acquired pneumonia with acute hypoxic respiratory failure and possible CHF exacerbation. #Pyelonephritis #Complicated UTI, E. coli and Klebsiella #Cystitis #Failed outpatient antibiotics Patient was recently placed on Augmentin and Cipro around 4 days ago, but patient still continues to spike fevers and having dysuria. UA was negative for bacteria likely in the setting of recent antibiotic regimen Patient CRP was elevated Abdomen/pelvis CT on 03/24/2025 that showed perinephric stranding Abdomen/pelvis CT done during this admission did not show cystitis pattern and changes consistent with previous kidney infection. Urine culture on 03/24/2025 did show E. coli and Klebsiella pneumoniae which were resistant to ampicillin, ampicillin/Bactrim, levofloxacin, ciprofloxacin, nitrofurantoin. Plan: IV Zosyn No IV fluids given possible CHFat this time. Urine and blood cultures ordered Will continue to monitor #Acute hypoxic respiratory failure #Community-acquired pneumonia Patient came in has been complaining of cough since previous admission and came in mildly hypoxic and was placed on oxygen. Patient does use oxygen 2 L at home at baseline. Procalcitonin was negative therefore there is less suspicion for worsening pneumonia and there is more suspicion for vascular congestion on x-ray. Plan: Azithromycin and Zosyn Sputum cultures ordered O2 as needed Will continue to monitor #CHF exacerbation? Patient has been very short of breath as of recently even with minimal exertion. Patient's BNP was slightly elevated to 149 and there was vascular congestion seen on chest x-ray There were decreased lung sounds bilaterally on lower lobes as well as pleural effusion seen on CT. Last echo was on 2022 and showed an EF of 60 to 65% Plan: Lasix 40 x 1 echo ordered Echo ordered Daily weights Strict FELIPE's Fluid striction's 2000 daily Consider cardiology consult if worsening symptoms #Constipation Patient has not had a bowel movement since 03/25/2025 Abdomen/pelvis CT did not show any SBO Plan: Lactulose 20 daily Senna daily Chronic diseases: #Hx of ESRD (HD on MWF) #Hx of hypertension #Hx of hyperlipidemia #Hx of DM2 #Hx of CVA Patient was placed on ISS and hypoglycemia protocol Consult nephrology to follow-up with patient's hemodialysis schedule Avoid nephrotoxic unit Renally dose medications Restart home medications when medication reconciliation is done. Disposition: Patient admitted to telemetry. Diet: renal fluid restriction GI prophylaxis: not indicated DVT prophylaxis: heparin subcu Code: full Case disclosed with Attending Dr. Ramsey Silva PGY1 Disclaimer: Even though this this note was dictated by speech recognition and even though it was carefully revised there may still be minor errors in network security consultant due to voice recognition software. Attending Provider Attestation/Addendum 60-year-old female with history of CVA, diabetes mellitus, end-stage renal disease failed outpatient treatment. She is being admitted for UTI, pneumonia. I discussed with and supervised the resident physician who took care of this patient. I agree with the assessment and plan as above.
[2025-03-28 06:48] LABS: COVID-19 Antigen (In-House) Negative (Negative)
[2025-03-28] MEDS: FUROSEMIDE INJ 10 MG/ML 4ML VIAL 40 MG IVP (07:36)
[2025-03-28] MEDS: PIPER/TAZO INJ 4.5 GM in SODIUM CHLORIDE 0.9% (POP) 100 ML IV ×2 (07:39→16:58)
[2025-03-28] MEDS: LACTULOSE SYRUP 20 GM/30 ML UDC PO (08:31)
[2025-03-28] MEDS: HYDROMORPHONE HCL 2 MG TABLET 1 MG PO ×2 (11:31→21:15)
[2025-03-28 12:43] LABS: Creatine Kinase 25 U/L (34-171)
[2025-03-28] MEDS: HEPARIN SOD INJ 5000 UNIT/ML VIAL SC ×2 (15:14→21:18)
--- NOTE | 2025-03-28 15:26 | ESPR_ITS ---
<Statement entered by Magaly Cummings MD - 03/28/25 20:41> I have reviewed the note and agree with the resident's assessment & plan with exceptions as below. I have personally reviewed labs, imaging, home meds/prior records, examined the patient, formulated and discussed management plan with the IM team. Patient is overnight admit for evaluation of commune acquired pneumonia and pyelonephritis. Patient failed outpatient antibiotics including Cipro and Augmentin. Recent cultures show resistance to those antibiotics. Patient will likely need IV antibiotics including Zosyn and Azithromycin which she is on and will need antipyretics and multimodal analgesia. Patient is currently on Dilaudid 1 mg p.o. every 6 hours, however home [place] was resumed. A number of her home medicines was also resumed including blood pressure medicines anxiety medicines etc. Patient continued to improve and will follow-up with blood, sputum and urine cultures. She was noted to have chronic hematuria, creatinine kinase within normal limits and no stones seen on imaging in which we recommend outpatient follow-up. Nephrology was also consulted as she is on dialysis Thursday however still makes urine and her point of sale associate is Dr. Casas in [place]. We also added Lasix IV 40 mg as patient did seem a bit congested, and is still able to make urine. We will also follow-up with echo as there was concern for heart failure. It was noted that patient takes home Xarelto 20 mg every day, and this was noted up to the year of 2022. Is unsure if she takes it related to her stroke history or if there is a problem that we are unaware of. Will inquire about this medicine tomorrow and patient likely still has Xarelto in her body due to the half-life if she has been taking it. We will also test for influenza AMB. Repeat hematology and chemistry in the a.m. Magaly Cummings, PGY-2 Documentation for date of: 03/28/25 Subjective Subjective Interval history: Patient seen today. No overnight events. Afebrile. Hypertensive overnight with highest recording 172/80. O2 requirement went down from 3L HAND MOLDER AND CASTER to 2L HAND MOLDER AND CASTER. Patient passed 3 loose BMs today and feels relieved from abdominal bloating. No coughing episodes ovenight. No complaints of chest pain or worsening SOB. Exam Vital Signs Temp Pulse Resp BP Pulse Ox O2 Del Method O2 Flow Rate 98.1 F 74 17 170/81 H 100 Nasal Cannula 2 03/28/25 12:00 03/28/25 12:00 03/28/25 12:00 03/28/25 12:00 03/28/25 12:00 03/28/25 12:00 03/28/25 12:00 Narrative Exam General: A/O x3, no acute distress, obsese, not bed bound Eyes: PERRLA, EOMI. Anicteric, blind. Ears: No ear pain, no ear discharge, Hearing grossly intact. Nose: No nasal discharge. Mouth/Throat: Moist mucous membranes, no redness, no lesions. Neck: Neck supple, non-tender, no cervical lymphadenopathy. Lungs: Decreased bilat air entry lower lobes, No accessory muscle use. No crackles or adventitious sounds. Cardio: Normal S1/S2, regular rhythm, no murmurs, no JVD Abdomen: Soft, no distention, slight tenderness to L side, no guarding or rebound. Extremities: Symmetrical, no significant deformities, +1 bilat pitting peripheral edema , non-tender, bilat peripheral pulses present on dorsalis pedis Skin: No rashes, no lesions, warm to touch. Neuro: No aphasia, Blind at baseline, no facial asymmetry, moving all 4 limbs well. Psych: Cooperative, no flight of ideas Objective Labs 03/30/25 05:28 03/30/25 05:28 Labs: Laboratory Results - last 24 hr 03/27/25 03/28/25 03/28/25 22:08 01:00 01:07 WBC 3.6 RBC 3.24 L Hgb 10.7 L Hct 32.2 L MCV 99 MCH 33.0 MCHC 33.2 RDW Std Deviation 49.9 H Plt Count 190 D Neut % (Auto) 70 Lymph % (Auto) 22 Phillips % (Auto) 6 Eos % (Auto) 1 Baso % (Auto) 0 Neut # (Auto) 2.5 Lymph # (Auto) 0.8 L Phillips # (Auto) 0.2 Eos # (Auto) 0.0 Baso # (Auto) 0.0 Immature Gran # (Auto) 0.03 H Absolute Nucleated RBC 0.00 Immature Gran % 1 H Nucleated RBC % 0 Sodium 134 L Potassium 3.8 Chloride 101 Carbon Dioxide 29.0 Anion Gap 4 L BUN 14 Creatinine 3.0 H D Estim Creat Clear Calc Not Performed. eGFR 17 L BUN/Creatinine Ratio 5 L Glucose 104 Calculated Osmolality 268 L Lactic Acid 1.1 Calcium 7.8 L Corrected Calcium 8.7 Phosphorus 3.1 Magnesium 1.9 Total Bilirubin 0.3 AST 22 ALT 10 Alkaline Phosphatase 74 Total Creatine Kinase Troponin I < 0.020 < 0.020 C-Reactive Prot, Quant 9.0 H B-Natriuretic Peptide 149 H Total Protein 7.0 Albumin 2.9 L Globulin 4.1 H Albumin/Globulin Ratio 0.7 L Amylase 38 Lipase 22 Procalcitonin 0.47 Ur Collection Type Urine Color Urine Clarity Urine pH Ur Specific Pauline Urine Protein Urine Glucose (UA) Urine Ketones Urine Blood Urine Nitrite Urine Bilirubin Urine Urobilinogen (Auto) Ur Leukocyte Esterase Urine RBC Urine WBC Ur Squamous Epith Cells Urine Bacteria Urine Opiates Screen Urine Fentanyl Screen Ur Barbiturates Screen U Amphetamin/Meth Scrn U Benzodiazepines Scrn U Cocaine Metab Screen U Marijuana (THC) Screen SARS-CoV-2 Ag (Rapid) 03/28/25 03/28/25 03/28/25 03:30 06:00 12:13 WBC RBC Hgb Hct MCV MCH MCHC RDW Std Deviation Plt Count Neut % (Auto) Lymph % (Auto) Phillips % (Auto) Eos % (Auto) Baso % (Auto) Neut # (Auto) Lymph # (Auto) Phillips # (Auto) Eos # (Auto) Baso # (Auto) Immature Gran # (Auto) Absolute Nucleated RBC Immature Gran % Nucleated RBC % Sodium Potassium Chloride Carbon Dioxide Anion Gap BUN Creatinine Estim Creat Clear Calc eGFR BUN/Creatinine Ratio Glucose Calculated Osmolality Lactic Acid Calcium Corrected Calcium Phosphorus Magnesium Total Bilirubin AST ALT Alkaline Phosphatase Total Creatine Kinase 25 L Troponin I C-Reactive Prot, Quant B-Natriuretic Peptide Total Protein Albumin Globulin Albumin/Globulin Ratio Amylase Lipase Procalcitonin Ur Collection Type Catheter Urine Color Yellow Urine Clarity Clear Urine pH 7.0 Ur Specific Pauline 1.018 Urine Protein 2+ A Urine Glucose (UA) Trace Urine Ketones Negative Urine Blood 1+ A Urine Nitrite Negative Urine Bilirubin Negative Urine Urobilinogen (Auto) Negative Ur Leukocyte Esterase Positive Urine RBC 15 H Urine WBC 31 H Ur Squamous Epith Cells 3 Urine Bacteria None Urine Opiates Screen Positive A Urine Fentanyl Screen Negative Ur Barbiturates Screen Negative U Amphetamin/Meth Scrn Negative U Benzodiazepines Scrn Negative U Cocaine Metab Screen Negative U Marijuana (THC) Screen Negative SARS-CoV-2 Ag (Rapid) Negative Quality Measures Quality Measures none Assessment & Plan Assessment Current Active Medications: Generic Name Dose Route Start Last Admin Trade Name Freq PRN Reason Stop Dose Admin Acetaminophen 650 mg 03/28/25 06:10 Acetaminophen 325 Mg Tablet PO 04/27/25 06:09 Q6H PRN Fever >100.4 Acetaminophen 650 mg 03/28/25 06:10 Acetaminophen 325 Mg Tablet PO 04/27/25 06:09 Q6H PRN PAIN SCALE 1-3 (mild Dextrose 25 ml 03/28/25 06:10 Dextrose 50%-Water Inj 50 Ml Syringe IV 04/27/25 06:09 Q15MIN PRN BG 50-70 responsive npo pt Dextrose 50 ml 03/28/25 06:10 Dextrose 50%-Water Inj 50 Ml Syringe IV 04/27/25 06:09 Q15MIN PRN BG <50 OR BG <70 & pt unresponsive Furosemide 40 mg 03/29/25 09:00 Furosemide Inj 10 Mg/Ml 4ml Vial IVP 04/28/25 08:59 QDAY OLY Glucagon 1 mg 03/28/25 06:10 Glucagon Inj 1 Mg Vial IM Q15MIN PRN BG <70, and no IV access Heparin Sodium (Porcine) 5,000 unit 03/28/25 14:00 03/28/25 15:14 Heparin Sod Inj 5000 Unit/Ml Vial SC 04/11/25 13:59 5,000 unit Q8HR OLY Administration Hydromorphone HCl 1 mg 03/28/25 11:14 03/28/25 11:31 Hydromorphone Hcl 2 Mg Tablet PO 04/02/25 11:13 1 mg Q4HR PRN Administration Pain 4-10 Azithromycin 500 mg/ Sodium 250 mls @ 250 mls/hr 03/29/25 09:00 Chloride IV 03/31/25 08:59 QDAY OLY Piperacillin Sod/Tazobactam 100 mls @ 200 mls/hr 03/28/25 17:00 Sod 4.5 gm/ Sodium Chloride IV 04/04/25 16:59 Q12HR [facility] Protocol Insulin Human Lispro 0 unit 03/28/25 07:30 03/28/25 11:40 Insulin Lispro (Admelog) 1 Unit/0.01 Ml Unit SC 04/27/25 07:29 Not Given AC OLY Protocol Lactulose 20 gm 03/28/25 09:00 03/28/25 08:31 Lactulose Syrup 20 Gm/30 Ml Udc PO 04/27/25 08:59 20 gm QDAY OLY Administration Protocol Ondansetron HCl 4 mg 03/28/25 06:10 Ondansetron Inj 2 Mg/Ml Inj 2 Ml IVP 04/27/25 06:09 Q6H PRN NAUSEA OR VOMITING Protocol Sennosides 1 tab 03/28/25 09:00 03/28/25 08:29 Senna Tablet PO 04/27/25 08:59 1 tab QDAY OLY Administration Protocol Plan Assessment 60-year-old female with past medical history of ESRD (HD on MWF), hypertension, hyperlipidemia, T2DM, and past CVA admitted for pyelonephritis and complicated UTI that failed outpatient treatment as well as community-acquired pneumonia with acute hypoxic respiratory failure and possible CHF exacerbation. #Pyelonephritis #Complicated UTI, E. coli and Klebsiella #Cystitis #Failed outpatient antibiotics Patient was recently started on Augmentin and Cipro around 4 days ago, but patient still continues to spike fevers and having dysuria. UA was negative for bacteria likely in the setting of recent antibiotic regimen Patient CRP was elevated Abdomen/pelvis CT on 03/24/2025 that showed perinephric stranding Abdomen/pelvis CT done during this admission did not show cystitis pattern and changes consistent with previous kidney infection. Urine culture on 03/24/2025 did show E. coli and Klebsiella pneumoniae which were resistant to ampicillin, ampicillin/Bactrim, levofloxacin, ciprofloxacin, nitrofurantoin. Plan: IV Zosyn Follow up on urine and blood culture Resume [place] 5 q6h and Dilaudid (for ESRD) for breakthrough pain. #Acute hypoxic respiratory failure #Community-acquired pneumonia #Multifactorial - likely due Patient came in and had been complaining of cough since previous admission and came in mildly hypoxic and was placed on oxygen. Cough has improved and patient is on baseline home O2 of 2L. Procalcitonin was negative therefore there is less suspicion for worsening pneumonia and there is more suspicion for vascular congestion on x-ray. Plan: Azithromycin and Zosyn Sputum cultures ordered O2 as needed - monitor #Hx of CVA Unsure of why patient is taking Xarelto. Has been on it since 2022. Holding Xarelto tonight and will find out why taking this med tomorow. #CHF exacerbation? Patient has been very short of breath as of recently even with minimal exertion. Patient's BNP was slightly elevated to 149 and there was vascular congestion seen on chest x-ray There were decreased lung sounds bilaterally on lower lobes as well as pleural effusion seen on CT. Last echo was on 2022 and showed an EF of 60 to 65% Plan: Lasix 1x 40mg dose given today - Daily Lasix 40mg IV starting 03/29/2025 Echo ordered - continue to monitor Daily weights - continue to monitor Strict FELIPE's - continue to monitor Fluid restriction 2000 ml daily Consider cardiology consult if worsening symptoms #Constipation - resolving Patient passed 3x BMs today after starting lactulose and senna. Abdomen/pelvis CT did not show any SBO. Plan: Lactulose 20 daily Senna daily #Chronic Hematuria UA showed +1 for RBC (previously +3 RBC) CK 25 Patient first noticed hematuria 1.5yrs ago and briefly went away before returning recently. Patient to see outpatient Nephro #Test for Flu Influ A + B swab pending - monitor Chronic diseases: #Hx of ESRD (HD on MWF) #Hx of hypertension #Hx of hyperlipidemia #Hx of DM2 #Hx of CVA Patient was placed on ISS and hypoglycemia protocol Nephrology consulted today - Dr. Gui Casas to take over the care with regards to hemodialysis scheduling from [facility]. Avoid nephrotoxic unit Renally dose medications Disposition: Patient admitted to telemetry. Diet: renal fluid restriction GI prophylaxis: not indicated DVT prophylaxis: heparin subcut Code: full Case discussed with my attending, Dr. Palacios, and senior resident, Dr. Emiliano Villalba MD PGY-1 Attending Provider Attestation/Addendum I attest that I was physically present for the evaluation, physical examination, lab and imaging review of the patient with the residents. I discussed the case with the residents and agree with the findings and plans of care as documented above. Kiersten Palacios MD
[2025-03-28 15:40] LABS: Influenza A Ag Negative; Influenza B Ag Negative
--- NOTE | 2025-03-28 16:18 | PD.RESCONSUL ---
HPI Data of Consult Requesting Physician: Raul Mustafa MD Admitting Provider: Raul Mustafa MD Attending Provider: Raul Mustafa MD Primary Care Provider: Physician No Primary/Family Consult Narrative History of present illness: cc:: cc: Raul Mustafa MD Exam Vital Signs Temp Pulse Resp BP Pulse Ox O2 Del Method O2 Flow Rate 98.1 F 74 17 170/81 H 100 Nasal Cannula 2 03/28/25 12:00 03/28/25 12:00 03/28/25 12:00 03/28/25 12:00 03/28/25 12:00 03/28/25 12:00 03/28/25 12:00 Results Labs 03/27/25 22:08 03/27/25 22:08 Labs: Short CBC 03/27/25 Range/Units 22:08 WBC 3.6 (3.6-11.0) Thou/mm3 Hgb 10.7 L (12.0-16.0) g/dL Hct 32.2 L (36.0-46.0) % Plt Count 190 D (140-440) Thou/mm3 BMP 03/27/25 22:08 Sodium 134 L Potassium 3.8 Chloride 101 Carbon Dioxide 29.0 BUN 14 Creatinine 3.0 H D Glucose 104 Calcium 7.8 L Cardiac Enzymes 03/27/25 03/28/25 03/28/25 Range/Units 22:08 01:00 12:13 Total Creatine Kinase 25 L (34-171) U/L Troponin I < 0.020 < 0.020 (0.0-0.045) ng/mL Liver Function 03/27/25 Range/Units 22:08 Total Bilirubin 0.3 (0.3-1.2) mg/dL AST 22 (0-34) U/L ALT 10 (10-49) U/L Alkaline Phosphatase 74 (46-116) U/L Albumin 2.9 L (3.5-5.0) gm/dL Urine 03/28/25 Range/Units 03:30 Urine Color Yellow (Lt Yel-Yel) Urine Clarity Clear (Clear/Hazy) Urine pH 7.0 (5.0-7.0) Ur Specific [place] 1.018 (1.001-1.035) Urine Protein 2+ A (Neg - Trace) Urine Glucose (UA) Trace (Negative) Quality Measures Quality Measures none Medications Home Medications and Allergies Home Medications ?Medication ?Instructions ?Recorded ?Confirmed ?Type atorvastatin 40 mg tablet 40 mg PO HS 12/10/22 09/02/23 History calcium acetate(phosphat bind) 667 667 mg PO TID 12/10/22 09/02/23 History mg tablet hydroxyzine HCl 25 mg tablet 50 mg PO QID 12/10/22 09/02/23 History rivaroxaban 20 mg tablet (Xarelto) 20 mg PO DAILY 12/10/22 09/02/23 History acetaminophen 325 mg tablet 650 mg PO PRN PRN Mild Pain (Scale 01/10/23 09/02/23 History (Tylenol) Score 1-4) melatonin 3 mg capsule 3 mg PO HS PRN Insomnia 01/10/23 09/02/23 History B-complex with vitamin C 1 tab PO QDAY 03/25/23 09/02/23 History clonidine HCl 0.1 mg tablet 0.1 mg PO HS 03/25/23 09/02/23 History ergocalciferol (vitamin D2) 62.5 See Rx Instructions .Route .COMPLEX 03/25/23 09/02/23 History mcg (2,500 unit) capsule hydralazine 100 mg tablet 100 mg PO TID 03/25/23 09/02/23 History insulin glargine 100 unit/mL (3 10 unit subcut QPM 03/25/23 09/02/23 History mL) subcutaneous pen (Lantus Solostar U-100 Insulin) ondansetron HCl 4 mg tablet 4 mg PO Q6H PRN Nausea And Vomiting 03/25/23 09/02/23 History tramadol 50 mg tablet 50 mg PO [id number] PRN Moderate Pain 03/25/23 09/02/23 History (Scale Score 5-6) carvedilol 3.125 mg tablet (Coreg) 3.125 mg PO BID 09/02/23 09/02/23 History docusate sodium 100 mg tablet 100 mg PO QDAY 09/02/23 09/02/23 History insulin aspart U-100 100 unit/mL 1 sliding scale dose subcut 09/02/23 09/02/23 History subcutaneous cartridge [id number] Allergies Allergy/AdvReac Type Severity Reaction Status Date / Time levofloxacin Allergy Mild Vomiting Verified 02/24/25 07:54 Visit Medications Acetaminophen (Acetaminophen 325 Mg Tablet) 650 mg PO Q6H PRN PRN Reason: Fever >100.4 Stop: 04/27/25 06:09 Acetaminophen (Acetaminophen 325 Mg Tablet) 650 mg PO Q6H PRN PRN Reason: PAIN SCALE 1-3 (mild Stop: 04/27/25 06:09 Amlodipine Besylate (Amlodipine Besylate 5 Mg Tablet) 10 mg PO QDAY [facility] Stop: 04/27/25 16:14 Carvedilol (Carvedilol 3.125 Mg Tablet) 3.125 mg PO BIDWM [facility] Stop: 04/27/25 20:59 Dextrose (Dextrose 50%-Water Inj 50 Ml Syringe) 25 ml IV Q15MIN PRN PRN Reason: BG 50-70 responsive npo pt Stop: 04/27/25 06:09 Dextrose (Dextrose 50%-Water Inj 50 Ml Syringe) 50 ml IV Q15MIN PRN PRN Reason: BG <50 OR BG <70 & pt unresponsive Stop: 04/27/25 06:09 Furosemide (Furosemide Inj 10 Mg/Ml 4ml Vial) 40 mg IVP QDAY [facility] Stop: 04/28/25 08:59 Glucagon (Glucagon Inj 1 Mg Vial) 1 mg IM Q15MIN PRN PRN Reason: BG <70, and no IV access Heparin Sodium (Porcine) (Heparin Sod Inj 5000 Unit/Ml Vial) 5,000 unit SC Q8HR [facility] Stop: 04/11/25 13:59 Last Admin: 03/28/25 15:14 Dose: 5,000 unit Hydromorphone HCl (Hydromorphone Hcl 2 Mg Tablet) 1 mg PO Q4HR PRN PRN Reason: Pain 4-10 Stop: 04/02/25 11:13 Last Admin: 03/28/25 11:31 Dose: 1 mg Azithromycin 500 mg/ Sodium (Chloride) 250 mls @ 250 mls/hr IV QDAY [facility] Stop: 03/31/25 08:59 Piperacillin Sod/Tazobactam (Sod 4.5 gm/ Sodium Chloride) 100 mls @ 200 mls/hr IV Q12HR [facility]; Protocol Stop: 04/04/25 16:59 Insulin Human Lispro (Insulin Lispro (Admelog) 1 Unit/0.01 Ml Unit) 0 unit SC AC [facility]; Protocol Stop: 04/27/25 07:29 Last Admin: 03/28/25 11:40 Dose: Not Given Lactulose (Lactulose Syrup 20 Gm/30 Ml Udc) 20 gm PO QDAY [facility]; Protocol Stop: 04/27/25 08:59 Last Admin: 03/28/25 08:31 Dose: 20 gm Ondansetron HCl (Ondansetron Inj 2 Mg/Ml Inj 2 Ml) 4 mg IVP Q6H PRN; Protocol PRN Reason: NAUSEA OR VOMITING Stop: 04/27/25 06:09 Sennosides (Senna Tablet) 1 tab PO QDAY [facility]; Protocol Stop: 04/27/25 08:59 Last Admin: 03/28/25 08:29 Dose: 1 tab Discontinued Medications Azithromycin (Azithromycin 250 Mg Tablet) 500 mg PO QDAY [facility] Stop: 04/05/25 08:59 Furosemide (Furosemide Inj 10 Mg/Ml 4ml Vial) 40 mg IVP X1 ONE Stop: 03/28/25 06:30 Last Admin: 03/28/25 07:36 Dose: 40 mg Hydromorphone HCl (Hydromorphone Inj 2 Mg/Ml Vial) 1 mg IVP X1 ONE Stop: 03/27/25 22:02 Last Admin: 03/27/25 22:52 Dose: 1 mg Ceftriaxone Sodium/Dextrose (Rocephin/D5w 1gm Iv Premix) 1 gm in 50 mls @ 100 mls/hr IV X1 ONE Stop: 03/28/25 01:40 Last Infusion: 03/28/25 03:30 Dose: Infused Azithromycin 500 mg/ Sodium (Chloride) 250 mls @ 250 mls/hr IV X1 ONE Stop: 03/28/25 02:11 Last Infusion: 03/28/25 07:15 Dose: Infused Piperacillin/Tazobactam/Dextrose (Zosyn) 3.375 gm in 50 mls @ 12.5 mls/hr IV Q8HR [facility] Stop: 04/04/25 13:59 Piperacillin Sod/Tazobactam (Sod 4.5 gm/ Sodium Chloride) 100 mls @ 200 mls/hr IV X1 ONE Stop: 03/28/25 06:59 Last Infusion: 03/28/25 09:30 Dose: Infused Ondansetron HCl (Ondansetron Inj 2 Mg/Ml Inj 2 Ml) 4 mg IVP X1 ONE; Protocol Stop: 03/27/25 21:40 Last Admin: 03/27/25 22:52 Dose: 4 mg Sodium Chloride (Sodium Chloride Rt 10% 15 Ml Nebu) 5 ml INH X1 ONE Stop: 03/28/25 06:28
[2025-03-28] MEDS: INSULIN LISPRO (AdmeLOG) 1 UNIT/0.01 ML UNIT SC (17:10)
[2025-03-28] MEDS: ATORVASTATIN CALCIUM 20 MG TABLET 40 MG PO (21:03)
[2025-03-28] MEDS: MELATONIN 3 MG TABLET PO (21:04)
[2025-03-28 22:30] LABS: Hepatitis A Antibody IgM Non Reactive (Non React); Hepatitis B Core Antibody IgM Non Reactive (Non React); Hepatitis B Surface Ab Reactive (Immune) (Immune); Hepatitis B Surface Antigen Non Reactive (Non React); Hepatitis C Antibody Non Reactive (Non React)
[2025-03-29] VITALS (29 sets, daily range): BP systolic 110–178; BP diastolic 45–84; PULSE 51–98; RESP 17–19; TEMP 36.1–36.9; O2SAT 92–100
[2025-03-29] MEDS: HYDROMORPHONE HCL 2 MG TABLET 1 MG PO (01:35)
[2025-03-29] MEDS: HYDROcodone/APAP 5/325 TABLET 1 TAB PO ×2 (03:48→16:06)
[2025-03-29] MEDS: ONDANSETRON INJ 2 MG/ML INJ 2 ML 4 MG IVP ×4 (03:51→23:50)
--- NOTE | 2025-03-29 04:11 | PC.NURSE ---
[facility] from 02:00am to 03:00am.
[2025-03-29 06:04] LABS: Basophils # (Auto) 0.0 Thou/mm3 (0.0-0.2); Basophils % (Auto) 1 % (0-2.5); Eosinophils # (Auto) 0.1 Thou/mm3 (0.0-0.5); Eosinophils % (Auto) 2 % (0-10); Hematocrit 31.1 % (36.0-46.0); Hemoglobin 10.3 g/dL (12.0-16.0); Immature Granulocytes Auto 0.06 Thou/mm3 (0.00-0.00); Lymphocytes # (Auto) 0.8 Thou/mm3 (1.0-4.8); Lymphocytes % (Auto) 18 % (10-50); Mean Corpuscular HGB Conc 33.1 g/dl (31.0-37.0); Mean Corpuscular Hemoglobin 32.8 pg (25.0-35.0); Mean Corpuscular Volume 99 fL (80-100); Monocytes # (Auto) 0.3 Thou/mm3 (0.0-0.8); Monocytes % (Auto) 6 % (0-12); Neutrophils # (Auto) 3.0 Thou/mm3 (1.8-7.7); Neutrophils % (Auto) 72 % (37-80); Nucleated Red Blood Cell # 0.00 Thou/mm3 (0.00-0.00); Nucleated Red Blood Cell % 0 /100 WBC (0); Platelet Count 188 Thou/mm3 (140-440); RDW Standard Deviation 50.5 fL (36.4-46.3); Red Blood Count 3.14 Miln/mm3 (4.00-5.20); White Blood Count 4.2 Thou/mm3 (3.6-11.0)
[2025-03-29] MEDS: HEPARIN SOD INJ 5000 UNIT/ML VIAL SC ×3 (06:35→21:36)
[2025-03-29 06:51] LABS: Glucose Estimated Average 111 mg/dL (80-131); Hemoglobin A1C 5.5 % Hgb (4.8-6.0)
[2025-03-29 07:06] LABS: Alanine Aminotransferase 10 U/L (10-49); Albumin, Serum 2.7 gm/dL (3.5-5.0); Albumin/Globulin Ratio 0.7 (1.2-2.2); Alkaline Phosphatase 102 U/L (46-116); Anion Gap 6 (7-16); Aspartate Amino Transferase 21 U/L (0-34); BUN/Creatinine Ratio 5 Ratio (12-20); Bilirubin,Total 0.2 mg/dL (0.3-1.2); Blood Urea Nitrogen 21 mg/dL (9-23); Calcium 7.9 mg/dL (8.3-10.6); Calcium (Corrected) 8.9 mg/dL (8.5-10.1); Carbon Dioxide 27.4 mMol/L (20.0-31.0); Chloride 101 mMol/L (98-107); Creatinine (Component) 4.2 mg/dL (0.6-1.3); Estimated Creatinine Clearance 14.7 mL/min (>60); Globulin 4.0 gm/dL (2.3-3.5); Glucose 127 mg/dL (74-106); Magnesium 1.9 mg/dL (1.6-2.6); Osmolality,Calculated 273 (275-295); Phosphorous 4.5 mg/dL (2.4-5.1); Potassium 3.9 mMol/L (3.4-5.1); Sodium 134 mMol/L (136-145); Total Protein 6.7 gm/dL (5.7-8.2); eGFR 12 See Note
[2025-03-29] MEDS: ACETAMINOPHEN 325 MG TABLET 650 MG PO (09:49)
[2025-03-29] MEDS: ALBUMIN HUMAN 25% IVPB 25 GM/100 ML BTL IV ×2 (09:56→10:40)
--- NOTE | 2025-03-29 09:57 | PC.NURSE ---
Addendum entered by Edgar Trevino RN 03/29/25 09:58: WILL ADMIN PRN ALBUMIN AND CONT. TO MONITOR Original Note: BP TRENDING DOWN, PT C/O NAUSEA WILL ADMIN PRN ZOFRAN, PT REPORTS APIN TO ABDOMEN WILL ADMIN PRN TYLENOL. PT REFUSES NEED TO TURN UF OFF, WILL CONT. TO MONITOR
--- NOTE | 2025-03-29 10:35 | PC.NURSE ---
BP TRENDING DOWN, MD REYES AT BEDSIDE W/ ORDER TO ADMINISTER 1 BOTTLE OF PRN ALBUMIN 25GM/100ML AT THIS TIME AND UP TO 2 MORE FOR A TOTAL OF 4 TO ENSURE BP REMAINS STABLE TO ALLOW FLUID REMOVAL, WILL CARRY OUT ORDERS AND CONT. TO MONITOR
[2025-03-29] MEDS: CALCIUM ACETATE 667 MG TABLET PO ×2 (12:51→18:03)
--- NOTE | 2025-03-29 14:52 | ESPR_ITS ---
<Statement entered by Magaly Cummings MD - 03/29/25 22:35> I have reviewed the note and agree with the resident's assessment & plan with exceptions as below. I have personally reviewed labs, imaging, home meds/prior records, examined the patient, formulated and discussed management plan with the IM team. Pt continues to improve, HD 2L removal today. Pending Urine culture, BC no growth after 24 hours. No fevers overnight. Will continue IV abx with Zosyn and Azithromycin. Echo shows G1DD, preserved EJ, respiratory failure likely due to infectious cause and fluid overload related to ESRD hx rather cardiac hx. Transitioning to Oral Lasix 20 mg as pt is still able to make urine. If pt continues to improve, can anticipate D/C within next 24-48 hours pending culture results. Magaly Cummings, PGY-2 Documentation for date of: 03/29/25 Subjective Subjective Interval history: No acute overnight events. Patient was at hemodialysis at time of visit. She reports that she is on Xarleto and has been on it for five years for an unspecified thrombotic episode she had but does not know what it was exactly. She says she usually tolerates HD well. Shes not experiencing SOB or weakness at this time. Exam Vital Signs Temp Pulse Resp BP Pulse Ox O2 Del Method O2 Flow Rate 97.8 F 94 18 174/82 H 97 Nasal Cannula 2 03/29/25 12:39 03/29/25 14:35 03/29/25 12:39 03/29/25 14:35 03/29/25 12:39 03/29/25 12:39 03/29/25 12:39 Narrative Exam Physical exam unable to obtain due to hemodialysis schedule today. Objective Labs 03/30/25 05:28 03/30/25 05:28 Labs: Laboratory Results - last 24 hr 03/28/25 03/28/25 03/29/25 12:13 13:00 05:31 WBC 4.2 RBC 3.14 L Hgb 10.3 L Hct 31.1 L MCV 99 MCH 32.8 MCHC 33.1 RDW Std Deviation 50.5 H Plt Count 188 Neut % (Auto) 72 Lymph % (Auto) 18 [place] % (Auto) 6 Eos % (Auto) 2 Baso % (Auto) 1 Neut # (Auto) 3.0 Lymph # (Auto) 0.8 L [place] # (Auto) 0.3 Eos # (Auto) 0.1 Baso # (Auto) 0.0 Immature Gran # (Auto) 0.06 H Absolute Nucleated RBC 0.00 Immature Gran % 1 H Nucleated RBC % 0 Sodium 134 L Potassium 3.9 Chloride 101 Carbon Dioxide 27.4 Anion Gap 6 L BUN 21 Creatinine 4.2 H* D Estim Creat Clear Calc 14.7 L eGFR 12 L* BUN/Creatinine Ratio 5 L Glucose [address] Glu mg/dL 111 Hemoglobin A1c 5.5 Calculated Osmolality 273 L Calcium 7.9 L Corrected Calcium 8.9 Phosphorus 4.5 Magnesium 1.9 Total Bilirubin 0.2 L AST 21 ALT 10 Alkaline Phosphatase 102 D Total Protein 6.7 Albumin 2.7 L Globulin 4.0 H Albumin/Globulin Ratio 0.7 L Hepatitis A IgM Ab Non Reactive Hep Bs Antigen Non Reactive Hep Bs Antibody Reactive (Immune) Hep B Core IgM Ab Non Reactive Hepatitis C Antibody Non Reactive Influenza A (Rapid) Negative Influenza B (Rapid) Negative Quality Measures Quality Measures none Assessment & Plan Assessment Current Active Medications: Generic Name Dose Route Start Last Admin Trade Name Freq PRN Reason Stop Dose Admin Acetaminophen 650 mg 03/28/25 06:10 Acetaminophen 325 Mg Tablet PO 04/27/25 06:09 Q6H PRN Fever >100.4 Acetaminophen 650 mg 03/28/25 06:10 03/29/25 09:49 Acetaminophen 325 Mg Tablet PO 04/27/25 06:09 650 mg Q6H PRN Administration PAIN SCALE 1-3 (mild Hydrocodone Bitart/Acetaminophen 1 tab 03/29/25 09:27 Hydrocodone/Apap 5/325 Tablet PO 04/02/25 18:04 Q6HR PRN Pain 4-6 Amlodipine Besylate 10 mg 03/28/25 16:15 03/29/25 08:51 Amlodipine Besylate 5 Mg Tablet PO 04/27/25 16:14 Not Given QDAY OLY Atorvastatin Calcium 40 mg 03/28/25 21:00 03/28/25 21:03 Atorvastatin Calcium 20 Mg Tablet PO 04/27/25 20:59 40 mg HS OLY Administration Buspirone HCl 7.5 mg 03/28/25 21:00 03/29/25 08:51 Buspirone Hcl 5 Mg Tablet PO 04/27/25 20:59 Not Given BID OLY Calcium Acetate 667 mg 03/29/25 08:00 03/29/25 12:51 Calcium Acetate 667 Mg Tablet PO 04/28/25 07:59 667 mg TIDWM OLY Administration Carvedilol 3.125 mg 03/28/25 21:00 03/29/25 08:51 Carvedilol 3.125 Mg Tablet PO 04/27/25 20:59 Not Given BIDWM OLY Dextrose 25 ml 03/28/25 06:10 Dextrose 50%-Water Inj 50 Ml Syringe IV 04/27/25 06:09 Q15MIN PRN BG 50-70 responsive npo pt Dextrose 50 ml 03/28/25 06:10 Dextrose 50%-Water Inj 50 Ml Syringe IV 04/27/25 06:09 Q15MIN PRN BG <50 OR BG <70 & pt unresponsive Furosemide 20 mg 03/30/25 09:00 Furosemide 20 Mg Tablet PO 04/29/25 08:59 QAM OLY Glucagon 1 mg 03/28/25 06:10 Glucagon Inj 1 Mg Vial IM Q15MIN PRN BG <70, and no IV access Heparin Sodium (Porcine) 5,000 unit 03/28/25 14:00 03/29/25 14:34 Heparin Sod Inj 5000 Unit/Ml Vial SC 04/11/25 13:59 5,000 unit Q8HR OLY Administration Hydralazine HCl 100 mg 03/28/25 22:00 03/29/25 14:35 Hydralazine Hcl 25 Mg Tablet PO 04/27/25 21:59 100 mg TID OLY Administration Hydromorphone HCl 1 mg 03/28/25 18:21 03/29/25 01:35 Hydromorphone Hcl 2 Mg Tablet PO 04/02/25 11:13 1 mg Q4HR PRN Administration PAIN SCALE 7-10 (Severe Azithromycin 500 mg/ Sodium 250 mls @ 250 mls/hr 03/29/25 09:00 03/29/25 08:51 Chloride IV 03/31/25 08:59 Not Given QDAY [facility] Piperacillin Sod/Tazobactam 100 mls @ 200 mls/hr 03/28/25 17:00 03/29/25 08:52 Sod 4.5 gm/ Sodium Chloride IV 04/04/25 16:59 Not Given Q12HR [facility] Protocol Albumin Human 25 gm in 100 mls @ 100 mls/min 03/29/25 08:00 03/29/25 10:40 Albuminar-25 Ivpb IV 100 mls/min PRN PRN Administration DIALYSIS Insulin Human Lispro 0 unit 03/28/25 07:30 03/29/25 11:58 Insulin Lispro (Admelog) 1 Unit/0.01 Ml Unit SC 04/27/25 07:29 Not Given AC OLY Protocol Melatonin 3 mg 03/28/25 21:00 03/28/25 21:04 Melatonin 3 Mg Tablet PO 04/27/25 20:59 3 mg HS OLY Administration Ondansetron HCl 4 mg 03/28/25 06:10 03/29/25 09:53 Ondansetron Inj 2 Mg/Ml Inj 2 Ml IVP 04/27/25 06:09 4 mg Q6H PRN Administration NAUSEA OR VOMITING Protocol Pantoprazole Sodium 20 mg 03/29/25 09:00 03/29/25 08:52 Pantoprazole 20 Mg Tablet PO 04/28/25 08:59 Not Given QDAY [facility] Sennosides 1 tab 03/28/25 09:00 03/29/25 08:52 Senna Tablet PO 04/27/25 08:59 Not Given QDAY [facility] Protocol Simethicone 80 mg 03/28/25 18:05 Simethicone 80 Mg Chew PO 04/27/25 18:04 QID PRN GAS Plan Assessment 60-year-old female with past medical history of ESRD (HD on MWF), hypertension, hyperlipidemia, T2DM, and past CVA admitted for pyelonephritis and complicated UTI that failed outpatient treatment as well as community-acquired pneumonia with acute hypoxic respiratory failure and possible CHF exacerbation. #Pyelonephritis #Complicated UTI, E. coli and Klebsiella #Cystitis Patient failed outpatient antibiotics of Augmentin and Cipro around 5 days ago. UA was negative for bacteria likely in the setting of recent antibiotic regimen. Patient CRP was elevated but started decreasing. Abdomen/pelvis CT on 03/24/2025 that showed perinephric stranding Abdomen/pelvis CT done during this admission did not show cystitis pattern and changes consistent with previous kidney infection. Urine culture on 03/24/2025 did show E. coli and Klebsiella pneumoniae which were resistant to ampicillin, ampicillin/Bactrim, levofloxacin, ciprofloxacin, nitrofurantoin. Plan: IV Zosyn - continue (03/28- Follow up on urine (pending) and blood culture (prelim negative after 24 hours) Continue Harvey 5 q6h and Dilaudid (for ESRD) for breakthrough pain. #Acute hypoxic respiratory failure #Community-acquired pneumonia #Multifactorial - likely due Patient came in and had been complaining of cough since previous admission and came in mildly hypoxic and was placed on oxygen. Cough has improved and patient is on baseline home O2 of 2L. Procalcitonin was negative therefore there is less suspicion for worsening pneumonia and there is more suspicion for vascular congestion on x-ray. Influ A + B negative. Plan: Azithromycin and Zosyn (03/28- Sputum cultures ordered O2 as needed - monitor #Hx of CVA #?Hx of thrombosis Patient is on Xarelto. Has been on it since for past 5 years. Patient endorses a history of thrombosis in 2019, however she is unsure what kind of thrombosis it was Typically thrombosis A/C would be for a specific amount of time, and not chronically over 5 years Pt may also be on it for a different type of reason Plan: Will hold home Xarleto at this time, will have PCP decide to resume upon d/c #HFpEF #Stage 1 diastolic dysfunction #Possible cardio-renal syndrome Patient has been very short of breath as of recently even with minimal exertion Patient's BNP was slightly elevated to 149 and there was vascular congestion seen on chest x-ray ECHO 03/28/2025 showed Stage 1 diastolic dysfunction, EF 60-65%. Plan: Patient recieved Lasix 40mg IV dose given today - Starting 03/30/2025 will get Lasix 20mg PO daily Daily weights - continue to monitor Strict FELIPE's - continue to monitor Fluid restriction 1800 ml daily Consider cardiology consult if worsening symptoms #Constipation - RESOLVED Patient passed 3x BMs yesterday Abdomen/pelvis CT did not show any SBO. Plan: Discontinued Lactulose today Continue Senna daily #Chronic Hematuria UA showed +1 for RBC (previously +3 RBC) CK 25 Patient first noticed hematuria 1.5yrs ago and briefly went away before returning recently. Plan: Patient to see outpatient Nephro Chronic diseases: #Hx of ESRD (HD on MWF) - Dr. Gui Casas taking care of hemodialysis. Avoid nephrotoxic unit. Renally dose medications #Hx of hypertension - on home med hydralazine 100mg TID, Carvedilol 3.125mg daily, Amlodipine 10mg daily #Hx of hyperlipidemia - on home med atorvastatin 40mg #Hx of DM2 - on insulin Glargine 22u qPM, insulin Aspart SS, hypoglycemia protocol #Hx of CVA - on home med Xarelto, unclear why not on Aspirin Disposition: Patient admitted to telemetry. Diet: renal fluid restriction GI prophylaxis: not indicated DVT prophylaxis: heparin subcut Code: full Case discussed with my attending, Dr. Palacios, and senior resident, Dr. Emiliano Villalba MD PGY-1 Attending Provider Attestation/Addendum I attest that I was physically present for the evaluation, physical examination, lab and imaging review of the patient with the residents. I discussed the case with the residents and agree with the findings and plans of care as documented above. Kiersten Palacios MD
--- NOTE | 2025-03-29 15:19 | PC.SS ---
Patient is alert/oriented. Patient was able to verify demographics. Patient confirmed she resides at [facility]. She's been at facility for over 2 years. Patient is on dialysis every M/W/F @ 7am. with Dr. Arredondo. Patient has a hx: CVA. Patient admitted for UTI. Discharge plan is to return to facility. Alt medical decision maker: Daughter, Jade,
--- NOTE | 2025-03-29 18:45 | PC.NURSE ---
Per AM nurse, sputum cx not acquired due to patient not producing sputum.
[2025-03-29] MEDS: ATORVASTATIN CALCIUM 20 MG TABLET 40 MG PO (21:34)
[2025-03-29] MEDS: MELATONIN 3 MG TABLET PO (21:35)
[2025-03-29] MEDS: PIPER/TAZO INJ 4.5 GM in SODIUM CHLORIDE 0.9% (POP) 100 ML IV (21:38)
[2025-03-30] VITALS (12 sets, daily range): BP systolic 135–164; BP diastolic 63–88; PULSE 70–90; RESP 18; TEMP 36.3–36.4; O2SAT 96–98
[2025-03-30] MEDS: ONDANSETRON INJ 2 MG/ML INJ 2 ML 4 MG IVP ×2 (06:01→17:24)
[2025-03-30] MEDS: HEPARIN SOD INJ 5000 UNIT/ML VIAL SC ×3 (06:06→21:31)
[2025-03-30 06:24] LABS: Basophils # (Auto) 0.0 Thou/mm3 (0.0-0.2); Basophils % (Auto) 1 % (0-2.5); Eosinophils # (Auto) 0.0 Thou/mm3 (0.0-0.5); Eosinophils % (Auto) 0 % (0-10); Hematocrit 31.4 % (36.0-46.0); Hemoglobin 10.3 g/dL (12.0-16.0); Immature Granulocytes Auto 0.07 Thou/mm3 (0.00-0.00); Lymphocytes # (Auto) 0.6 Thou/mm3 (1.0-4.8); Lymphocytes % (Auto) 15 % (10-50); Mean Corpuscular HGB Conc 32.8 g/dl (31.0-37.0); Mean Corpuscular Hemoglobin 32.7 pg (25.0-35.0); Mean Corpuscular Volume 100 fL (80-100); Monocytes # (Auto) 0.2 Thou/mm3 (0.0-0.8); Monocytes % (Auto) 4 % (0-12); Neutrophils # (Auto) 3.3 Thou/mm3 (1.8-7.7); Neutrophils % (Auto) 79 % (37-80); Nucleated Red Blood Cell # 0.00 Thou/mm3 (0.00-0.00); Nucleated Red Blood Cell % 0 /100 WBC (0); Platelet Count 177 Thou/mm3 (140-440); RDW Standard Deviation 49.8 fL (36.4-46.3); Red Blood Count 3.15 Miln/mm3 (4.00-5.20); White Blood Count 4.2 Thou/mm3 (3.6-11.0)
[2025-03-30 06:55] LABS: Alanine Aminotransferase 7 U/L (10-49); Albumin, Serum 3.1 gm/dL (3.5-5.0); Albumin/Globulin Ratio 0.8 (1.2-2.2); Alkaline Phosphatase 81 U/L (46-116); Anion Gap 9 (7-16); Aspartate Amino Transferase 19 U/L (0-34); BUN/Creatinine Ratio 3 Ratio (12-20); Bilirubin,Total 0.3 mg/dL (0.3-1.2); Blood Urea Nitrogen 11 mg/dL (9-23); Calcium 8.3 mg/dL (8.3-10.6); Calcium (Corrected) 9.0 mg/dL (8.5-10.1); Carbon Dioxide 28.3 mMol/L (20.0-31.0); Chloride 100 mMol/L (98-107); Creatinine (Component) 3.2 mg/dL (0.6-1.3); Estimated Creatinine Clearance 19.0 mL/min (>60); Globulin 3.8 gm/dL (2.3-3.5); Glucose 98 mg/dL (74-106); Magnesium 1.9 mg/dL (1.6-2.6); Osmolality,Calculated 273 (275-295); Phosphorous 2.9 mg/dL (2.4-5.1); Potassium 3.8 mMol/L (3.4-5.1); Sodium 137 mMol/L (136-145); Total Protein 6.9 gm/dL (5.7-8.2); eGFR 16 See Note
[2025-03-30] MEDS: PIPER/TAZO INJ 4.5 GM in SODIUM CHLORIDE 0.9% (POP) 100 ML IV (08:32)
[2025-03-30] MEDS: PANTOPRAZOLE 20 MG TABLET PO (08:36)
[2025-03-30] MEDS: CALCIUM ACETATE 667 MG TABLET PO ×3 (08:36→17:19)
[2025-03-30] MEDS: AZITHROMYCIN INJ 500 MG in SODIUM CHLORIDE 0.9% 250 ML 250 ML 250 MG IV (08:37)
--- NOTE | 2025-03-30 10:03 | ESPR_ITS ---
<Statement entered by Magaly Cummings MD - 03/30/25 19:33> I have reviewed the note and agree with the resident's assessment & plan with exceptions as below. I have personally reviewed labs, imaging, home meds/prior records, examined the patient, formulated and discussed management plan with the IM team. Patient continuing to improve. Urine culture did not show growth. We will base antibiotic coverage off previous culture. Will transition to Bactrim that will be renally dosed. Patient did experience multiple episodes of diarrhea. This could be a antibiotic effect or could be related to C. difficile. Will test for C. difficile. If patient is negative C. difficile, can anticipate discharge within 24 to 48 hours. Repeat hematology and chemistry in the a.m. Magaly Cummings, PGY-2 Internal Medicine Documentation for date of: 03/30/25 Subjective Subjective Interval history: Patient seen today. No overnight events. Afebrile. Patient having loose BMs since yesterday.. No coughing episodes ovenight. No complaints of chest pain or worsening SOB. Exam Vital Signs Temp Pulse Resp BP Pulse Ox O2 Del Method O2 Flow Rate 97.4 F 79 18 147/69 H 96 Room Air 2 03/30/25 08:00 03/30/25 08:36 03/30/25 08:00 03/30/25 08:36 03/30/25 08:00 03/30/25 08:00 03/30/25 07:23 Narrative Exam General: A/O x3, no acute distress, obsese, not bed bound Eyes: PERRLA, EOMI. Anicteric, blind. Ears: No ear pain, no ear discharge, Hearing grossly intact. Nose: No nasal discharge. Mouth/Throat: Moist mucous membranes, no redness, no lesions. Neck: Neck supple, non-tender, no cervical lymphadenopathy. Lungs: Decreased bilat air entry lower lobes, No accessory muscle use. No crackles or adventitious sounds. Cardio: Normal S1/S2, regular rhythm, no murmurs, no JVD Abdomen: Soft, no distention, slight tenderness to L side, no guarding or rebound. Extremities: Symmetrical, no significant deformities, +1 bilat pitting peripheral edema , non-tender Skin: No rashes, no lesions, warm to touch. Neuro: No aphasia, Blind at baseline, no facial asymmetry, moving all 4 limbs well. Psych: Cooperative, no flight of ideas Objective Labs 03/30/25 05:28 03/30/25 05:28 Labs: Laboratory Results - last 24 hr 03/30/25 05:28 WBC 4.2 RBC 3.15 L Hgb 10.3 L Hct 31.4 L MCV 100 MCH 32.7 MCHC 32.8 RDW Std Deviation 49.8 H Plt Count 177 Neut % (Auto) 79 Lymph % (Auto) 15 [place] % (Auto) 4 Eos % (Auto) 0 Baso % (Auto) 1 Neut # (Auto) 3.3 Lymph # (Auto) 0.6 L [place] # (Auto) 0.2 Eos # (Auto) 0.0 Baso # (Auto) 0.0 Immature Gran # (Auto) 0.07 H Absolute Nucleated RBC 0.00 Immature Gran % 2 H Nucleated RBC % 0 Sodium 137 Potassium 3.8 Chloride 100 Carbon Dioxide 28.3 Anion Gap 9 BUN 11 Creatinine 3.2 H D Estim Creat Clear Calc 19.0 L eGFR 16 L BUN/Creatinine Ratio 3 L Glucose 98 Calculated Osmolality 273 L Calcium 8.3 Corrected Calcium 9.0 Phosphorus 2.9 Magnesium 1.9 Total Bilirubin 0.3 AST 19 ALT 7 L Alkaline Phosphatase 81 D Total Protein 6.9 Albumin 3.1 L Globulin 3.8 H Albumin/Globulin Ratio 0.8 L Quality Measures Quality Measures none Assessment & Plan Assessment Current Active Medications: Generic Name Dose Route Start Last Admin Trade Name Braxtonq PRN Reason Stop Dose Admin Acetaminophen 650 mg 03/28/25 06:10 Acetaminophen 325 Mg Tablet PO 04/27/25 06:09 Q6H PRN Fever >100.4 Acetaminophen 650 mg 03/28/25 06:10 03/29/25 09:49 Acetaminophen 325 Mg Tablet PO 04/27/25 06:09 650 mg Q6H PRN Administration PAIN SCALE 1-3 (mild Hydrocodone Bitart/Acetaminophen 1 tab 03/29/25 09:27 03/29/25 16:06 Hydrocodone/Apap 5/325 Tablet PO 04/02/25 18:04 1 tab Q6HR PRN Administration Pain 4-6 Amlodipine Besylate 10 mg 03/28/25 16:15 03/30/25 08:36 Amlodipine Besylate 5 Mg Tablet PO 04/27/25 16:14 10 mg QDAY OLY Administration Atorvastatin Calcium 40 mg 03/28/25 21:00 03/29/25 21:34 Atorvastatin Calcium 20 Mg Tablet PO 04/27/25 20:59 40 mg HS OLY Administration Buspirone HCl 7.5 mg 03/28/25 21:00 03/30/25 08:37 Buspirone Hcl 5 Mg Tablet PO 04/27/25 20:59 7.5 mg BID OLY Administration Calcium Acetate 667 mg 03/29/25 08:00 03/30/25 08:36 Calcium Acetate 667 Mg Tablet PO 04/28/25 07:59 667 mg TIDWM OLY Administration Carvedilol 3.125 mg 03/28/25 21:00 03/30/25 08:36 Carvedilol 3.125 Mg Tablet PO 04/27/25 20:59 3.125 mg BIDWM OLY Administration Dextrose 25 ml 03/28/25 06:10 Dextrose 50%-Water Inj 50 Ml Syringe IV 04/27/25 06:09 Q15MIN PRN BG 50-70 responsive npo pt Dextrose 50 ml 03/28/25 06:10 Dextrose 50%-Water Inj 50 Ml Syringe IV 04/27/25 06:09 Q15MIN PRN BG <50 OR BG <70 & pt unresponsive Furosemide 20 mg 03/30/25 09:00 03/30/25 08:36 Furosemide 20 Mg Tablet PO 04/29/25 08:59 20 mg QAM OLY Administration Glucagon 1 mg 03/28/25 06:10 Glucagon Inj 1 Mg Vial IM Q15MIN PRN BG <70, and no IV access Heparin Sodium (Porcine) 5,000 unit 03/28/25 14:00 03/30/25 06:06 Heparin Sod Inj 5000 Unit/Ml Vial SC 04/11/25 13:59 5,000 unit Q8HR OLY Administration Hydralazine HCl 100 mg 03/28/25 22:00 03/30/25 06:03 Hydralazine Hcl 25 Mg Tablet PO 04/27/25 21:59 100 mg TID OLY Administration Hydromorphone HCl 1 mg 03/28/25 18:21 03/29/25 01:35 Hydromorphone Hcl 2 Mg Tablet PO 04/02/25 11:13 1 mg Q4HR PRN Administration PAIN SCALE 7-10 (Severe Azithromycin 500 mg/ Sodium 250 mls @ 250 mls/hr 03/29/25 09:00 03/30/25 08:37 Chloride IV 03/31/25 08:59 250 mls/hr QDAY OLY Administration Piperacillin Sod/Tazobactam 100 mls @ 200 mls/hr 03/28/25 17:00 03/30/25 08:32 Sod 4.5 gm/ Sodium Chloride IV 04/04/25 16:59 200 mls/hr Q12HR OLY Administration Protocol Albumin Human 25 gm in 100 mls @ 100 mls/min 03/29/25 08:00 03/29/25 10:41 Albuminar-25 Ivpb IV Infused PRN PRN Infusion DIALYSIS Insulin Human Lispro 0 unit 03/28/25 07:30 03/30/25 07:56 Insulin Lispro (Admelog) 1 Unit/0.01 Ml Unit SC 04/27/25 07:29 Not Given AC OLY Protocol Melatonin 3 mg 03/28/25 21:00 03/29/25 21:35 Melatonin 3 Mg Tablet PO 04/27/25 20:59 3 mg HS OLY Administration Ondansetron HCl 4 mg 03/28/25 06:10 03/30/25 06:01 Ondansetron Inj 2 Mg/Ml Inj 2 Ml IVP 04/27/25 06:09 4 mg Q6H PRN Administration NAUSEA OR VOMITING Protocol Pantoprazole Sodium 20 mg 03/29/25 09:00 03/30/25 08:36 Pantoprazole 20 Mg Tablet PO 04/28/25 08:59 20 mg QDAY OLY Administration Sennosides 1 tab 03/28/25 09:00 03/30/25 08:37 Senna Tablet PO 04/27/25 08:59 1 tab QDAY OLY Administration Protocol Simethicone 80 mg 03/28/25 18:05 Simethicone 80 Mg Chew PO 04/27/25 18:04 QID PRN GAS Plan Assessment 60-year-old female PHx of ESRD (HD on MWF), HTN, HLD, T2DM, and past CVA admitted for pyelonephritis, community-acquired pneumonia with acute hypoxic respiratory failure, and possible CHF exacerbation. #Pyelonephritis #Complicated UTI, E. coli and Klebsiella #Cystitis Patient failed outpatient antibiotics of Augmentin and Cipro around 5 days ago. UA was negative for bacteria likely in the setting of recent antibiotic regimen. Patient CRP was elevated but started decreasing. Abdomen/pelvis CT on 03/24/2025 that showed perinephric stranding Abdomen/pelvis CT done during this admission did not show cystitis pattern and changes consistent with previous kidney infection. Urine culture on 03/24/2025 did show E. coli and Klebsiella pneumoniae which were resistant to ampicillin, ampicillin/Bactrim, levofloxacin, ciprofloxacin, nitrofurantoin. Urine culture on 03/28/2025 showed no growth Plan: IV Zosyn - continue (03/28- Urine and blood culture negative Continue [place] 5 q6h and Dilaudid (for ESRD) for breakthrough pain. #Acute hypoxic respiratory failure #Community-acquired pneumonia #Multifactorial Patient came in and had been complaining of cough since previous admission and came in mildly hypoxic and was placed on oxygen. Cough has improved and patient is on baseline home O2 of 2L. Procalcitonin was negative therefore there is less suspicion for worsening pneumonia and there is more suspicion for vascular congestion on x-ray. Influ A + B negative. Plan: Azithromycin and Zosyn (03/28- Sputum cultures ordered O2 as needed - monitor #Hx of CVA #?Hx of thrombosis Patient is on Xarelto. Has been on it since for past 5 years. Patient endorses a history of thrombosis in 2019, however she is unsure what kind of thrombosis it was Typically thrombosis A/C would be for a specific amount of time, and not chronically over 5 years Pt may also be on it for a different type of reason Plan: Will hold home Xarleto at this time, will have PCP decide to resume upon d/c. #HFpEF #Stage 1 diastolic dysfunction #Possible cardio-renal syndrome Patient has been very short of breath as of recently even with minimal exertion Patient's BNP was slightly elevated to 149 and there was vascular congestion seen on chest x-ray ECHO 03/28/2025 showed Stage 1 diastolic dysfunction, EF 60-65%. Plan: Started on Lasix 20mg PO daily Daily weights - continue to monitor Strict FELIPE's - continue to monitor Fluid restriction 1800 ml daily Consider cardiology consult if worsening symptoms #Diarrhea - r/o c diff infection Patient having loose BMs. Recent abx use Plan C diff ordered - f/u result #Constipation - RESOLVED Patient passed 3x BMs yesterday Abdomen/pelvis CT did not show any SBO. Plan: Discontinued Lactulose today Continue Senna daily #Chronic Hematuria UA showed +1 for RBC (previously +3 RBC) CK 25 Patient first noticed hematuria 1.5yrs ago and briefly went away before returning recently. Plan: Patient to see outpatient Nephro Chronic diseases: #Hx of ESRD (HD on MWF) - Dr. Gui Casas taking care of hemodialysis. Avoid nephrotoxic unit. Renally dose medications #Hx of hypertension - on home med hydralazine 100mg TID, Carvedilol 3.125mg daily, Amlodipine 10mg daily #Hx of hyperlipidemia - on home med atorvastatin 40mg #Hx of DM2 - on insulin Glargine 22u qPM, insulin Aspart SS, hypoglycemia protocol #Hx of CVA - on home med Xarelto, unclear why not on Aspirin Health Maintence: Diet: renal fluid restriction GI prophylaxis: not indicated DVT prophylaxis: heparin subcut Code: full Case discussed with my attending, Dr. Palacios, and senior resident, Dr. Emiliano Villalba MD PGY-1 Attending Provider Attestation/Addendum I attest that I was physically present for the evaluation, physical examination, lab and imaging review of the patient with the residents. I discussed the case with the residents and agree with the findings and plans of care as documented above. Kiersten Palacios MD
[2025-03-30] MEDS: HYDROcodone/APAP 5/325 TABLET 1 TAB PO (17:19)
--- NOTE | 2025-03-30 19:54 | PC.NURSE ---
Dr. Cummings will put in another order for c-diff testing since last test was cancelled.
[2025-03-30] MEDS: MELATONIN 3 MG TABLET PO (21:04)
[2025-03-30] MEDS: ATORVASTATIN CALCIUM 20 MG TABLET 40 MG PO (21:04)
[2025-03-30] MEDS: SULFAMETHOXAZOLE PO (21:05)
[2025-03-30] MEDS: TRIMETHOPRIM PO (21:05)
[2025-03-31] VITALS (30 sets, daily range): BP systolic 81–161; BP diastolic 43–99; PULSE 70–88; RESP 17–18; TEMP 36.2–36.8; O2SAT 92–100
[2025-03-31] MEDS: ONDANSETRON INJ 2 MG/ML INJ 2 ML 4 MG IVP ×3 (05:11→14:44)
[2025-03-31 05:29] LABS: Basophils # (Auto) 0.0 Thou/mm3 (0.0-0.2); Basophils % (Auto) 1 % (0-2.5); Eosinophils # (Auto) 0.0 Thou/mm3 (0.0-0.5); Eosinophils % (Auto) 1 % (0-10); Hematocrit 33.5 % (36.0-46.0); Hemoglobin 10.8 g/dL (12.0-16.0); Immature Granulocytes Auto 0.09 Thou/mm3 (0.00-0.00); Lymphocytes # (Auto) 0.6 Thou/mm3 (1.0-4.8); Lymphocytes % (Auto) 17 % (10-50); Mean Corpuscular HGB Conc 32.2 g/dl (31.0-37.0); Mean Corpuscular Hemoglobin 33.1 pg (25.0-35.0); Mean Corpuscular Volume 103 fL (80-100); Monocytes # (Auto) 0.2 Thou/mm3 (0.0-0.8); Monocytes % (Auto) 6 % (0-12); Neutrophils # (Auto) 2.7 Thou/mm3 (1.8-7.7); Neutrophils % (Auto) 74 % (37-80); Nucleated Red Blood Cell # 0.00 Thou/mm3 (0.00-0.00); Nucleated Red Blood Cell % 0 /100 WBC (0); Platelet Count 169 Thou/mm3 (140-440); RDW Standard Deviation 51.6 fL (36.4-46.3); Red Blood Count 3.26 Miln/mm3 (4.00-5.20); White Blood Count 3.6 Thou/mm3 (3.6-11.0)
[2025-03-31] MEDS: HEPARIN SOD INJ 5000 UNIT/ML VIAL SC ×3 (05:37→21:13)
[2025-03-31 06:05] LABS: Alanine Aminotransferase < 7 U/L (10-49); Albumin, Serum 3.1 gm/dL (3.5-5.0); Albumin/Globulin Ratio 0.8 (1.2-2.2); Alkaline Phosphatase 75 U/L (46-116); Anion Gap 7 (7-16); Aspartate Amino Transferase 19 U/L (0-34); BUN/Creatinine Ratio 4 Ratio (12-20); Bilirubin,Total 0.2 mg/dL (0.3-1.2); Blood Urea Nitrogen 15 mg/dL (9-23); Calcium 8.1 mg/dL (8.3-10.6); Calcium (Corrected) 8.8 mg/dL (8.5-10.1); Carbon Dioxide 28.7 mMol/L (20.0-31.0); Chloride 98 mMol/L (98-107); Creatinine (Component) 4.1 mg/dL (0.6-1.3); Estimated Creatinine Clearance 14.8 mL/min (>60); Globulin 3.9 gm/dL (2.3-3.5); Glucose 95 mg/dL (74-106); Magnesium 2.0 mg/dL (1.6-2.6); Osmolality,Calculated 269 (275-295); Phosphorous 3.3 mg/dL (2.4-5.1); Potassium 3.5 mMol/L (3.4-5.1); Sodium 134 mMol/L (136-145); Total Protein 7.0 gm/dL (5.7-8.2); eGFR 12 See Note
[2025-03-31] MEDS: HYDROcodone/APAP 5/325 TABLET 1 TAB PO (11:04)
--- NOTE | 2025-03-31 13:38 | PD.RESDS ---
Planned Discharge Date 03/31/25 DS: Providers Provider Date of admission: 03/28/25 06:08 Primary care physician: Physician No Primary/Family Admitting Provider: Raul Mustafa MD Attending Provider on Admission: Kiersten Palacios MD Consults: 03/28/25 10:38 Referral [place] Routine Comment: 03/28/25 10:56 Consult to Nephrology Routine Comment: hemodialysis MWF Consulting Provider: Yohan Cisse 03/29/25 00:01 Consult to Nephrology Routine Comment: Dialysis orders Consulting Provider: Gui Casas Instructions: HD Attending Provider on DC: Kiersten Palacios MD Discharging Provider: Kiersten Palacios MD DS: Diagnosis Problem List Completed Was Problem List Reviewed/Reconciled?: Yes Hospital Course Hospital Course Hospital course: Lorenza is a 60-year-old female with past medical history of ESRD (HD on MWF), hypertension, hyperlipidemia, DM2, and past CVA, ? hx of thrombosis who was admitted to [facility] on 03/28/2025 for Pyleonephritis 2/2 complicated UTI. Pt arrived to the ED tachypneic, febrile, hypoxic, and hypertensive. She was worked up and was found to have a Hgb of 10.7, elevated CRP, elevated BNP, and UA was positive for RBCs and WBC. Initial imaging included chest x-ray which showed vascular congestion and worsening left lung pneumonia. Abdomen/pelvis CT preliminary report showed no SBO, possible cystitis, possible prior kidney infection, and small pericardial effusions and pleural effusions as well as again noted pneumonia. Medicine was consulted and pt was admitted to the floors. While on the floors, pt had a urine culture reflexed and was put on renally dosed IV Zoysn. Blood cultures showed no growth and urine culture resulted in a contamination. Sensitivies for her last urine culture the prior week showed some resistance and was positive for E coli and Klebsiella. Pt continued to improved. While in the hospital, pt had her normal scheduled dialysis peformed as well. Pt did have some diarrhea in the hospital, and C diff was ruled out with PCR. Xarelto, a home medicine for the patient was not resumed inpatient as she discussed having a hx of thrombosis, but was not sure exactly what it was. As she has been on it for five years, we have held the medicine and recommended to discuss with her PCP to resume the medicine. Pt was then discharged with the following instructions. Discharge Instructions: Follow up with PCP within one week I am going to hold your Xarleto, blood thinner, speak with PCP in regards to resuming it I am prescribing your Bactrim, take as directed to finish up your antibiotic course I am prescribing [place], take as needed for pain Follow up with your Java Web Engineer outpatient, within one week Follow up with your PCP in regards to your trace pericardial effusion and minimal bilateral pleural effusions Return to ER if your symptoms worsen or return Problem List: #Pyelonephritis #Complicated UTI, E. coli and Klebsiella #Cystitis #Acute hypoxic respiratory failure #Community-acquired pneumonia #Hx of CVA #?Hx of thrombosis #HFpEF #Diarrhea #? C diff, ruled out #Constipation - RESOLVED #Chronic Hematuria #Hx of ESRD (HD on MWF) #Hx of hypertension #Hx of hyperlipidemia #Hx of DM2 #Trace pericardial effusion #Small bilateral pleural effusions Patient seen and care discussed with my attending physician, Dr. Philip Cummings, PGY-2 Time Spent with Patient Time attestation: Total time spent providing and/or coordinating discharge services: Time spent: Less than 30 minutes Exam Vital Signs Temp Pulse Resp BP Pulse Ox O2 Del Method O2 Flow Rate 97.2 F 83 18 161/70 H 100 Nasal Cannula 2 03/31/25 12:00 03/31/25 12:00 03/31/25 12:03/31/25 12:00 03/31/25 12:03/31/25 12:03/31/25 12:00 Narrative Exam General: A/O x3, no acute distress, obsese, not bed bound Eyes: PERRLA, EOMI. Anicteric, blind. Ears: No ear pain, no ear discharge, Hearing grossly intact. Nose: No nasal discharge. Mouth/Throat: Moist mucous membranes, no redness, no lesions. Neck: Neck supple, non-tender, no cervical lymphadenopathy. Lungs: Decreased bilat air entry lower lobes, No accessory muscle use. No crackles or adventitious sounds. Cardio: Normal S1/S2, regular rhythm, no murmurs, no JVD Abdomen: Soft, no distention, slight tenderness to L side, no guarding or rebound. Extremities: Symmetrical, no significant deformities, +1 bilat pitting peripheral edema , non-tender Skin: No rashes, no lesions, warm to touch. Neuro: No aphasia, Blind at baseline, no facial asymmetry, moving all 4 limbs well. Psych: Cooperative, no flight of ideas Discharge Plan Plan Patient Disposition: Xfer Skilled Nsg Fac (SNF) Care Plan Goals: Discharge Instructions: Follow up with PCP within one week I am going to hold your Xarleto, blood thinner, speak with PCP in regards to resuming it I am prescribing your Bactrim, take as directed to finish up your antibiotic course I am prescribing [place], take as needed for pain Follow up with your Java Web Engineer outpatient, within one week Follow up with your PCP in regards to your trace pericardial effusion and minimal bilateral pleural effusions Return to ER if your symptoms worsen or return Prescriptions/Referrals Prescriptions/Med Rec: New sulfamethoxazole-trimethoprim 400-80 mg tablet 1 tab PO BID 6 Days Qty: 12 0RF Rx Instructions: Take one tablet by mouth twice a day hydrocodone-acetaminophen 5-325 mg tablet 1 tab PO Q8H MDD 3 tablets in one day PRN (Reason: pain) 3 Days Qty: 9 0RF Rx Instructions: Take one tablet by mouth as needed for pain up to three times a day Continued atorvastatin 40 mg tablet 40 mg PO HS calcium acetate(phosphat bind) 667 mg tablet 667 mg PO TID amlodipine [Norvasc] 10 mg tablet 10 mg PO QDAY Qty: 30 0RF meclizine 25 mg Tablet 25 mg PO TID MDD 100mg PRN (Reason: Vertigo) Qty: 90 0RF acetaminophen [Tylenol] 325 mg Tablet 650 mg PO Q6H PRN (Reason: Mild Pain (Scale Score 1-4)) Rx Instructions: Give 2 tabs Q6HR for mild pain hydralazine 100 mg Tablet 100 mg PO TID insulin glargine [Lantus Solostar U-100 Insulin] 100 unit/mL (3 mL) Insulin Pen 22 unit SUBCUT QPM Rx Instructions: Hold if BS <100 ondansetron HCl 4 mg Tablet 4 mg PO Q6H PRN (Reason: Nausea And Vomiting) carvedilol [Coreg] 3.125 mg Tablet 3.125 mg PO BID Rx Instructions: must administer with a meal/food insulin aspart U-100 100 unit/mL Cartridge 1 sliding scale dose SUBCUT USEASDIRECTD hydrocodone-acetaminophen 5-325 mg tablet 1 tab PO Q6H PRN (Reason: age related osteoporosis) melatonin 5 mg tablet 5 mg PO HS Rx Instructions: Give 2 tablets by mouth at bedtime buspirone 7.5 mg tablet 7.5 mg PO BID omeprazole 20 mg capsule,delayed release(DR/EC) 20 mg PO QDAY simethicone [Gas Relief (simethicone)] 80 mg tablet,chewable 80 mg PO QID PRN (Reason: abdominal distention) ergocalciferol (vitamin D2) 1,250 mcg (50,000 unit) capsule 1,250 mcg PO QMONTH Held Xarelto 20 mg tablet 20 mg PO DAILY Hold Instructions: decide with PCP if they deem necessary to resume Discontinued ondansetron 4 mg tablet,disintegrating 4 mg PO Q8H PRN (Reason: nausea and vomiting) Qty: 10 0RF amoxicillin-pot clavulanate 500-125 mg tablet 1 tab PO BID Qty: 12 0RF Rx Instructions: Please take this medicine after hemodialysis. amoxicillin-pot clavulanate [Augmentin] 500-125 mg tablet 1 tab PO BID Qty: 14 0RF ergocalciferol (vitamin D2) 62.5 mcg (2,500 unit) Capsule See Rx Instructions .ROUTE .COMPLEX Rx Instructions: 62.5 mcg orally DAILY ON SUNDAYS atorvastatin [Lipitor] 40 mg tablet 40 mg PO QPM Referrals: No Primary/Family,Physician [Primary Care Provider] - Patient/Caregiver Discharge Instructions Discharge Activity: activity as tolerated Education Materials: Anatomy of the Female Urinary Tract, Urinary Tract Infections in Women, Anemia and Kidney Disease Print Language: Cypriot Stand Alone Forms: Marilu Award Info., Patient Portal Info Letter Discharge Order Discharge Orders: Discharge (Routine); Ordered 03/31/25 Ordered By: Magaly Cummings Quality Discharge Quality Measures VTE prophylaxis (Heparin ) Attestestation Attestation I attest that I was physically present for the evaluation, physical examination, lab and imaging review of the patient with the residents. I discussed the case with the residents and agree with the findings and plans of care as documented above. Kiersten Palacios MD
--- NOTE | 2025-03-31 16:51 | PC.NURSE ---
received TC from REGINA Shaw stating [facility] is not able to accept pt back until after 2300 tonight, so she's going to set up her transport for tomorrow morning.
[2025-03-31] MEDS: CALCIUM ACETATE 667 MG TABLET PO (17:49)
[2025-03-31] MEDS: ATORVASTATIN CALCIUM 20 MG TABLET 40 MG PO (20:25)
[2025-03-31] MEDS: MELATONIN 3 MG TABLET PO (20:26)
[2025-03-31] MEDS: MECLIZINE HCL 25 MG TABLET PO (20:26)
[2025-03-31] MEDS: SULFAMETHOXAZOLE PO (20:26)
[2025-03-31] MEDS: TRIMETHOPRIM PO (20:26)
[2025-04-01] VITALS (14 sets, daily range): BP systolic 132–176; BP diastolic 60–78; PULSE 75–84; RESP 16–18; TEMP 36.1–36.8; O2SAT 94–100; BMI 36.2
[2025-04-01] MEDS: HEPARIN SOD INJ 5000 UNIT/ML VIAL SC ×3 (05:11→21:16)
[2025-04-01] MEDS: SULFAMETHOXAZOLE PO ×2 (09:01→21:15)
[2025-04-01] MEDS: TRIMETHOPRIM PO ×2 (09:01→21:15)
[2025-04-01] MEDS: PANTOPRAZOLE 20 MG TABLET PO (09:02)
[2025-04-01] MEDS: CALCIUM ACETATE 667 MG TABLET PO ×3 (09:02→17:13)
--- NOTE | 2025-04-01 09:02 | PC.SS ---
OTILIA communicated with Radha [phone] from [facility] to start the transportation back to SNF. However, Radha reported that since the pt has been gone for so long, she checked with their eligibility at the SNF and stated the pt will need a PT eval, they need OT notes, a new AUTH and a new PASSR. SS will need to submit for AUTH once the PT is completed. SS to send all clinicals for AUTH.
[2025-04-01] MEDS: ONDANSETRON INJ 2 MG/ML INJ 2 ML 4 MG IVP (15:22)
--- NOTE | 2025-04-01 19:40 | PC.NURSE ---
Pt unable to discharge today pending PT evaluation per SNF coordinator, PT planned first thing tomorrow morning.
--- NOTE | 2025-04-01 20:43 | ESDS_ITS ---
Planned Discharge Date 04/01/25 DS: Providers Provider Date of admission: 03/28/25 06:08 Primary care physician: Physician No Primary/Family Admitting Provider: Raul Mustafa MD Attending Provider on Admission: Kiersten Palacios MD Consults: 03/28/25 10:38 Referral Mozelle Routine Comment: 03/28/25 10:56 Consult to Nephrology Routine Comment: hemodialysis MWF Consulting Provider: Yohan Cisse 03/29/25 00:01 Consult to Nephrology Routine Comment: Dialysis orders Consulting Provider: Gui Casas Instructions: HD 04/01/25 09:54 Referral Physical Therapy Stat Comment: Physician Instructions: Instructions: for d/c Attending Provider on DC: Magaly Cummings MD Discharging Provider: Magaly Cummings MD DS: Diagnosis Problem List Completed Was Problem List Reviewed/Reconciled?: Yes Hospital Course Hospital Course Hospital course: Lorenza is a 60-year-old female with past medical history of ESRD (HD on MWF), hypertension, hyperlipidemia, DM2, and past CVA, ? hx of thrombosis who was admitted to [facility] on 03/28/2025 for Pyleonephritis 2/2 complicated UTI. Pt arrived to the ED tachypneic, febrile, hypoxic, and hypertensive. She was worked up and was found to have a Hgb of 10.7, elevated CRP, elevated BNP, and UA was positive for RBCs and WBC. Initial imaging included chest x-ray which showed vascular congestion and worsening left lung pneumonia. Abdomen/pelvis CT preliminary report showed no SBO, possible cystitis, possible prior kidney infection, and small pericardial effusions and pleural effusions as well as again noted pneumonia. Medicine was consulted and pt was admitted to the floors. While on the floors, pt had a urine culture reflexed and was put on renally dosed IV Zoysn. Blood cultures showed no growth and urine culture resulted in a contamination. Sensitivies for her last urine culture the prior week showed some resistance and was positive for E coli and Klebsiella. Pt continued to improved. While in the hospital, pt had her normal scheduled dialysis peformed as well. Pt did have some diarrhea in the hospital, and C diff was ruled out with PCR. Xarelto, a home medicine for the patient was not resumed inpatient as she discussed having a hx of thrombosis, but was not sure exactly what it was. As she has been on it for five years, we have held the medicine and recommended to discuss with her PCP to resume the medicine. Pt was then discharged with the following instructions. Currently she is pending insurance authorization. Discharge Instructions: Follow up with PCP within one week I am going to hold your Xarleto, blood thinner, speak with PCP in regards to resuming it I am prescribing your Bactrim, take as directed to finish up your antibiotic course I am prescribing [place], take as needed for pain Follow up with your [employer] Farming Coordinator outpatient, within one week Follow up with your PCP in regards to your trace pericardial effusion and minimal bilateral pleural effusions Return to ER if your symptoms worsen or return Problem List: #Pyelonephritis #Complicated UTI, E. coli and Klebsiella #Cystitis #Acute hypoxic respiratory failure #Community-acquired pneumonia #Hx of CVA #?Hx of thrombosis #HFpEF #Diarrhea #? C diff, ruled out #Constipation - RESOLVED #Chronic Hematuria #Hx of ESRD (HD on MWF) #Hx of hypertension #Hx of hyperlipidemia #Hx of DM2 #Trace pericardial effusion #Small bilateral pleural effusions Patient seen and care discussed with my attending physician, Dr. Philip Cummings, PGY-2 Time Spent with Patient Time attestation: Total time spent providing and/or coordinating discharge services: Time spent: Greater than 30 minutes Exam Vital Signs Temp Pulse Resp BP Pulse Ox O2 Del Method O2 Flow Rate 98.2 F 80 17 136/71 H 96 Room Air 2 04/01/25 20:00 04/01/25 20:00 04/01/25 20:00 04/01/25 20:00 04/01/25 20:00 04/01/25 20:00 04/01/25 08:00 Narrative Exam General: A/O x3, no acute distress, obsese, not bed bound Eyes: PERRLA, EOMI. Anicteric, blind. Ears: No ear pain, no ear discharge, Hearing grossly intact. Nose: No nasal discharge. Mouth/Throat: Moist mucous membranes, no redness, no lesions. Neck: Neck supple, non-tender, no cervical lymphadenopathy. Lungs: Decreased bilat air entry lower lobes, No accessory muscle use. No crac kles or adventitious sounds. Cardio: Normal S1/S2, regular rhythm, no murmurs, no JVD Abdomen: Soft, no distention, slight tenderness to L side, no guarding or rebound. Extremities: Symmetrical, no significant deformities, +1 bilat pitting peripheral edema , non-tender Skin: No rashes, no lesions, warm to touch. Neuro: No aphasia, Blind at baseline, no facial asymmetry, moving all 4 limbs well. Psych: Cooperative, no flight of ideas Discharge Plan Plan Patient Disposition: Xfer Skilled Nsg Fac (SNF) Care Plan Goals: Discharge Instructions: Follow up with PCP within one week I am going to hold your Xarleto, blood thinner, speak with PCP in regards to resuming it I am prescribing your Bactrim, take as directed to finish up your antibiotic course I am prescribing [place], take as needed for pain Follow up with your [employer]ision Farming Coordinator outpatient, within one week Follow up with your PCP in regards to your trace pericardial effusion and minimal bilateral pleural effusions Return to ER if your symptoms worsen or return Prescriptions/Referrals Prescriptions/Med Rec: New sulfamethoxazole-trimethoprim 400-80 mg tablet 1 tab PO BID 6 Days Qty: 12 0RF Rx Instructions: Take one tablet by mouth twice a day hydrocodone-acetaminophen 5-325 mg tablet 1 tab PO Q8H MDD 3 tablets in one day PRN (Reason: pain) 3 Days Qty: 9 0RF Rx Instructions: Take one tablet by mouth as needed for pain up to three times a day Continued atorvastatin 40 mg tablet 40 mg PO HS calcium acetate(phosphat bind) 667 mg tablet 667 mg PO TID amlodipine [Norvasc] 10 mg tablet 10 mg PO QDAY Qty: 30 0RF meclizine 25 mg Tablet 25 mg PO TID MDD 100mg PRN (Reason: Vertigo) Qty: 90 0RF acetaminophen [Tylenol] 325 mg Tablet 650 mg PO Q6H PRN (Reason: Mild Pain (Scale Score 1-4)) Rx Instructions: Give 2 tabs Q6HR for mild pain hydralazine 100 mg Tablet 100 mg PO TID insulin glargine [Lantus Solostar U-100 Insulin] 100 unit/mL (3 mL) Insulin Pen 22 unit SUBCUT QPM Rx Instructions: Hold if BS <100 ondansetron HCl 4 mg Tablet 4 mg PO Q6H PRN (Reason: Nausea And Vomiting) carvedilol [Coreg] 3.125 mg Tablet 3.125 mg PO BID Rx Instructions: must administer with a meal/food insulin aspart U-100 100 unit/mL Cartridge 1 sliding scale dose SUBCUT USEASDIRECTD hydrocodone-acetaminophen 5-325 mg tablet 1 tab PO Q6H PRN (Reason: age related osteoporosis) melatonin 5 mg tablet 5 mg PO HS Rx Instructions: Give 2 tablets by mouth at bedtime buspirone 7.5 mg tablet 7.5 mg PO BID omeprazole 20 mg capsule,delayed release(DR/EC) 20 mg PO QDAY simethicone [Gas Relief (simethicone)] 80 mg tablet,chewable 80 mg PO QID PRN (Reason: abdominal distention) ergocalciferol (vitamin D2) 1,250 mcg (50,000 unit) capsule 1,250 mcg PO QMONTH Held Xarelto 20 mg tablet 20 mg PO DAILY Hold Instructions: decide with PCP if they deem necessary to resume Discontinued ondansetron 4 mg tablet,disintegrating 4 mg PO Q8H PRN (Reason: nausea and vomiting) Qty: 10 0RF amoxicillin-pot clavulanate 500-125 mg tablet 1 tab PO BID Qty: 12 0RF Rx Instructions: Please take this medicine after hemodialysis. amoxicillin-pot clavulanate [Augmentin] 500-125 mg tablet 1 tab PO BID Qty: 14 0RF ergocalciferol (vitamin D2) 62.5 mcg (2,500 unit) Capsule See Rx Instructions .ROUTE .COMPLEX Rx Instructions: 62.5 mcg orally DAILY ON SUNDAYS atorvastatin [Lipitor] 40 mg tablet 40 mg PO QPM Referrals: No Primary/Family,Physician [Primary Care Provider] - Patient/Caregiver Discharge Instructions Discharge Activity: activity as tolerated Education Materials: Anatomy of the Female Urinary Tract, Urinary Tract Infections in Women, Anemia and Kidney Disease Print Language: Hong Konger Stand Alone Forms: Marilu Award Info., Patient Portal Info Letter Discharge Order Discharge Orders: Discharge (Routine); Ordered 03/31/25 Ordered By: Magaly Cummings Quality Discharge Quality Measures VTE prophylaxis (Heparin) Attestestation MD Attestation Patient was seen and examined agreed with assessment and plan. Patient not discharged on April 01, 2025. Will conitnune to follow. continue current treatment. Physical therapy eval francine.
[2025-04-01] MEDS: MELATONIN 3 MG TABLET PO (21:15)
[2025-04-01] MEDS: ATORVASTATIN CALCIUM 20 MG TABLET 40 MG PO (21:16)
[2025-04-02] VITALS (14 sets, daily range): BP systolic 110–157; BP diastolic 60–76; PULSE 72–80; RESP 16–20; TEMP 36.1–37.1; O2SAT 94–100; BMI 13.0
[2025-04-02] MEDS: ONDANSETRON INJ 2 MG/ML INJ 2 ML 4 MG IVP ×3 (03:56→21:44)
[2025-04-02 05:51] LABS: Basophils # (Auto) 0.0 Thou/mm3 (0.0-0.2); Basophils % (Auto) 0 % (0-2.5); Eosinophils # (Auto) 0.0 Thou/mm3 (0.0-0.5); Eosinophils % (Auto) 1 % (0-10); Hematocrit 32.0 % (36.0-46.0); Hemoglobin 10.5 g/dL (12.0-16.0); Immature Granulocytes Auto 0.06 Thou/mm3 (0.00-0.00); Lymphocytes # (Auto) 0.7 Thou/mm3 (1.0-4.8); Lymphocytes % (Auto) 18 % (10-50); Mean Corpuscular HGB Conc 32.8 g/dl (31.0-37.0); Mean Corpuscular Hemoglobin 32.9 pg (25.0-35.0); Mean Corpuscular Volume 100 fL (80-100); Monocytes # (Auto) 0.3 Thou/mm3 (0.0-0.8); Monocytes % (Auto) 8 % (0-12); Neutrophils # (Auto) 2.7 Thou/mm3 (1.8-7.7); Neutrophils % (Auto) 71 % (37-80); Nucleated Red Blood Cell # 0.00 Thou/mm3 (0.00-0.00); Nucleated Red Blood Cell % 0 /100 WBC (0); Platelet Count 148 Thou/mm3 (140-440); RDW Standard Deviation 49.5 fL (36.4-46.3); Red Blood Count 3.19 Miln/mm3 (4.00-5.20); White Blood Count 3.8 Thou/mm3 (3.6-11.0)
[2025-04-02] MEDS: HEPARIN SOD INJ 5000 UNIT/ML VIAL SC ×3 (06:04→21:45)
[2025-04-02 06:35] LABS: Alanine Aminotransferase 7 U/L (10-49); Albumin, Serum 2.9 gm/dL (3.5-5.0); Albumin/Globulin Ratio 0.7 (1.2-2.2); Alkaline Phosphatase 70 U/L (46-116); Anion Gap 11 (7-16); Aspartate Amino Transferase 20 U/L (0-34); BUN/Creatinine Ratio 4 Ratio (12-20); Bilirubin,Total 0.2 mg/dL (0.3-1.2); Blood Urea Nitrogen 14 mg/dL (9-23); Calcium 7.8 mg/dL (8.3-10.6); Calcium (Corrected) 8.7 mg/dL (8.5-10.1); Carbon Dioxide 27.8 mMol/L (20.0-31.0); Chloride 95 mMol/L (98-107); Creatinine (Component) 4.0 mg/dL (0.6-1.3); Estimated Creatinine Clearance 15.2 mL/min (>60); Globulin 3.9 gm/dL (2.3-3.5); Glucose 100 mg/dL (74-106); Magnesium 1.8 mg/dL (1.6-2.6); Osmolality,Calculated 268 (275-295); Phosphorous 2.8 mg/dL (2.4-5.1); Potassium 3.3 mMol/L (3.4-5.1); Sodium 134 mMol/L (136-145); Total Protein 6.8 gm/dL (5.7-8.2); eGFR 12 See Note
[2025-04-02] MEDS: SULFAMETHOXAZOLE PO ×2 (08:58→21:44)
[2025-04-02] MEDS: TRIMETHOPRIM PO ×2 (08:58→21:44)
[2025-04-02] MEDS: CALCIUM ACETATE 667 MG TABLET PO ×2 (08:58→16:56)
[2025-04-02] MEDS: PANTOPRAZOLE 20 MG TABLET PO (08:58)
--- NOTE | 2025-04-02 16:43 | PC.SS ---
SS uploaded and sent over PASRR SS informed [facility], that referral sent SHIRA; Margaret asked for PASRR SS uploaded SNF paperwork to [facility], pt resides there and will need reauthorization for continued stay SS learned pt seen by PT; PT notes indicated pt to return to SNF
--- NOTE | 2025-04-02 18:17 | PD.RESDS ---
Planned Discharge Date 04/02/25 DS: Providers Provider Date of admission: 03/28/25 06:08 Primary care physician: Physician No Primary/Family Admitting Provider: Raul Mustafa MD Attending Provider on Admission: Kiersten Palacios MD Consults: 03/28/25 10:38 Referral [place] Routine Comment: 03/28/25 10:56 Consult to Nephrology Routine Comment: hemodialysis MWF Consulting Provider: Yohan Cisse 03/29/25 00:01 Consult to Nephrology Routine Comment: Dialysis orders Consulting Provider: Gui Casas Instructions: HD 04/01/25 09:54 Referral Physical Therapy Stat Comment: Physician Instructions: Instructions: for d/c 04/02/25 14:56 Referral Physical Therapy Routine Comment: Physician Instructions: Attending Provider on DC: Raul Mustafa MD Discharging Provider: Raul Mustafa MD DS: Diagnosis Problem List Completed Was Problem List Reviewed/Reconciled?: Yes Hospital Course Hospital Course Hospital course: Lorenza is a 60-year-old female with past medical history of ESRD (HD on MWF), hypertension, hyperlipidemia, DM2, and past CVA, ? hx of thrombosis who was admitted to [facility] on 03/28/2025 for Pyleonephritis 2/2 complicated UTI. Pt arrived to the ED tachypneic, febrile, hypoxic, and hypertensive. She was worked up and was found to have a Hgb of 10.7, elevated CRP, elevated BNP, and UA was positive for RBCs and WBC. Initial imaging included chest x-ray which showed vascular congestion and worsening left lung pneumonia. Abdomen/pelvis CT preliminary report showed no SBO, possible cystitis, possible prior kidney infection, and small pericardial effusions and pleural effusions as well as again noted pneumonia. Medicine was consulted and pt was admitted to the floors. While on the floors, pt had a urine culture reflexed and was put on renally dosed IV Zoysn. Blood cultures showed no growth and urine culture resulted in a contamination. Sensitivies for her last urine culture the prior week showed some resistance and was positive for E coli and Klebsiella. Pt continued to improved. While in the hospital, pt had her normal scheduled dialysis peformed as well. Pt did have some diarrhea in the hospital, and C diff was ruled out with PCR. Xarelto, a home medicine for the patient was not resumed inpatient as she discussed having a hx of thrombosis, but was not sure exactly what it was. As she has been on it for five years, we have held the medicine and recommended to discuss with her PCP to resume the medicine. Pt was then discharged with the following instructions. Currently she is pending insurance authorization. Discharge Instructions: Follow up with PCP within one week I am going to hold your Xarleto, blood thinner, speak with PCP in regards to resuming it I am prescribing your Bactrim, take as directed to finish up your antibiotic course I am prescribing [place], take as needed for pain Follow up with your [employer] Mill Gr[employer] outpatient, within one week Follow up with your PCP in regards to your trace pericardial effusion and minimal bilateral pleural effusions Return to ER if your symptoms worsen or return Problem List: #Pyelonephritis #Complicated UTI, E. coli and Klebsiella #Cystitis #Acute hypoxic respiratory failure #Community-acquired pneumonia #Hx of CVA #?Hx of thrombosis #HFpEF #Diarrhea #? C diff, ruled out #Constipation - RESOLVED #Chronic Hematuria #Hx of ESRD (HD on MWF) #Hx of hypertension #Hx of hyperlipidemia #Hx of DM2 #Trace pericardial effusion #Small bilateral pleural effusions Case was discussed with attending physician. Shaila Mayo DO PGY II This document was transcribed using voice recognition technology. Minor inaccuracies may be present. Time Spent with Patient Time attestation: Total time spent providing and/or coordinating discharge services: Time spent: Greater than 30 minutes Exam Vital Signs Temp Pulse Resp BP Pulse Ox O2 Del Method O2 Flow Rate 98.7 F 72 16 140/62 H 94 L Nasal Cannula 1 04/02/25 16:00 04/02/25 16:56 04/02/25 16:00 04/02/25 16:56 04/02/25 16:00 04/02/25 16:00 04/02/25 16:00 Narrative Exam General: A/O x3, no acute distress, obsese, not bed bound Eyes: PERRLA, EOMI. Anicteric, blind. Ears: No ear pain, no ear discharge, Hearing grossly intact. Nose: No nasal discharge. Mouth/Throat: Moist mucous membranes, no redness, no lesions. Neck: Neck supple, non-tender, no cervical lymphadenopathy. Lungs: Decreased bilat air entry lower lobes, No accessory muscle use. No crackles or adventitious sounds. Cardio: Normal S1/S2, regular rhythm, no murmurs, no JVD Abdomen: Soft, no distention, slight tenderness to L side, no guarding or rebound. Extremities: Symmetrical, no significant deformities, +1 bilat pitting peripheral edema , non-tender Skin: No rashes, no lesions, warm to touch. Neuro: No aphasia, Blind at baseline, no facial asymmetry, moving all 4 limbs well. 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 outpatient, within one week Follow up with your PCP in regards to your trace pericardial effusion and minimal bilateral pleural effusions Return to ER if your symptoms worsen or return Prescriptions/Referrals Prescriptions/Med Rec: New sulfamethoxazole-trimethoprim 400-80 mg tablet 1 tab PO BID 6 Days Qty: 12 0RF Rx Instructions: Take one tablet by mouth twice a day hydrocodone-acetaminophen 5-325 mg tablet 1 tab PO Q8H MDD 3 tablets in one day PRN (Reason: pain) 3 Days Qty: 9 0RF Rx Instructions: Take one tablet by mouth as needed for pain up to three times a day Continued atorvastatin 40 mg tablet 40 mg PO HS calcium acetate(phosphat bind) 667 mg tablet 667 mg PO TID amlodipine [Norvasc] 10 mg tablet 10 mg PO QDAY Qty: 30 0RF meclizine 25 mg Tablet 25 mg PO TID MDD 100mg PRN (Reason: Vertigo) Qty: 90 0RF acetaminophen [Tylenol] 325 mg Tablet 650 mg PO Q6H PRN (Reason: Mild Pain (Scale Score 1-4)) Rx Instructions: Give 2 tabs Q6HR for mild pain hydralazine 100 mg Tablet 100 mg PO TID insulin glargine [Lantus Solostar U-100 Insulin] 100 unit/mL (3 mL) Insulin Pen 22 unit SUBCUT QPM Rx Instructions: Hold if BS <100 ondansetron HCl 4 mg Tablet 4 mg PO Q6H PRN (Reason: Nausea And Vomiting) carvedilol [Coreg] 3.125 mg Tablet 3.125 mg PO BID Rx Instructions: must administer with a meal/food insulin aspart U-100 100 unit/mL Cartridge 1 sliding scale dose SUBCUT USEASDIRECTD hydrocodone-acetaminophen 5-325 mg tablet 1 tab PO Q6H PRN (Reason: age related osteoporosis) melatonin 5 mg tablet 5 mg PO HS Rx Instructions: Give 2 tablets by mouth at bedtime buspirone 7.5 mg tablet 7.5 mg PO BID omeprazole 20 mg capsule,delayed release(DR/EC) 20 mg PO QDAY simethicone [Gas Relief (simethicone)] 80 mg tablet,chewable 80 mg PO QID PRN (Reason: abdominal distention) ergocalciferol (vitamin D2) 1,250 mcg (50,000 unit) capsule 1,250 mcg PO QMONTH Held Xarelto 20 mg tablet 20 mg PO DAILY Hold Instructions: decide with PCP if they deem necessary to resume Discontinued ondansetron 4 mg tablet,disintegrating 4 mg PO Q8H PRN (Reason: nausea and vomiting) Qty: 10 0RF amoxicillin-pot clavulanate 500-125 mg tablet 1 tab PO BID Qty: 12 0RF Rx Instructions: Please take this medicine after hemodialysis. amoxicillin-pot clavulanate [Augmentin] 500-125 mg tablet 1 tab PO BID Qty: 14 0RF ergocalciferol (vitamin D2) 62.5 mcg (2,500 unit) Capsule See Rx Instructions .ROUTE .COMPLEX Rx Instructions: 62.5 mcg orally DAILY ON SUNDAYS atorvastatin [Lipitor] 40 mg tablet 40 mg PO QPM Referrals: No Primary/Family,Physician [Primary Care Provider] - Patient/Caregiver Discharge Instructions Discharge Activity: activity as tolerated Education Materials: Anatomy of the Female Urinary Tract, Urinary Tract Infections in Women, Anemia and Kidney Disease Print Language: Kinyarwanda Stand Alone Forms: Mar[facility]u Award Info., Patient Portal Info Letter Discharge Order Discharge Orders: Discharge (Routine); Ordered 03/31/25 Ordered By: Magaly Cummings Quality Discharge Quality Measures VTE prophylaxis Attestestation MD Attestation Patient was seen and examined. She is still not discharged pending physical therapy evaluation. No new complaints. Discussed with housestaff
[2025-04-02] MEDS: MELATONIN 3 MG TABLET PO (21:43)
[2025-04-02] MEDS: ATORVASTATIN CALCIUM 20 MG TABLET 40 MG PO (21:43)
[2025-04-03] VITALS (27 sets, daily range): BP systolic 131–167; BP diastolic 62–83; PULSE 72–80; RESP 17–19; TEMP 36.1–36.6; O2SAT 95–99
[2025-04-03] MEDS: ONDANSETRON INJ 2 MG/ML INJ 2 ML 4 MG IVP ×3 (04:23→17:32)
[2025-04-03] MEDS: HEPARIN SOD INJ 5000 UNIT/ML VIAL SC ×3 (05:36→21:16)
[2025-04-03 06:18] LABS: Basophils # (Auto) 0.0 Thou/mm3 (0.0-0.2); Basophils % (Auto) 0 % (0-2.5); Eosinophils # (Auto) 0.0 Thou/mm3 (0.0-0.5); Eosinophils % (Auto) 1 % (0-10); Hematocrit 30.8 % (36.0-46.0); Hemoglobin 10.1 g/dL (12.0-16.0); Immature Granulocytes Auto 0.06 Thou/mm3 (0.00-0.00); Lymphocytes # (Auto) 0.7 Thou/mm3 (1.0-4.8); Lymphocytes % (Auto) 19 % (10-50); Mean Corpuscular HGB Conc 32.8 g/dl (31.0-37.0); Mean Corpuscular Hemoglobin 32.8 pg (25.0-35.0); Mean Corpuscular Volume 100 fL (80-100); Monocytes # (Auto) 0.3 Thou/mm3 (0.0-0.8); Monocytes % (Auto) 7 % (0-12); Neutrophils # (Auto) 2.6 Thou/mm3 (1.8-7.7); Neutrophils % (Auto) 71 % (37-80); Nucleated Red Blood Cell # 0.00 Thou/mm3 (0.00-0.00); Nucleated Red Blood Cell % 0 /100 WBC (0); Platelet Count 151 Thou/mm3 (140-440); RDW Standard Deviation 48.7 fL (36.4-46.3); Red Blood Count 3.08 Miln/mm3 (4.00-5.20); White Blood Count 3.7 Thou/mm3 (3.6-11.0)
[2025-04-03 06:42] LABS: Alanine Aminotransferase 10 U/L (10-49); Albumin, Serum 2.9 gm/dL (3.5-5.0); Albumin/Globulin Ratio 0.7 (1.2-2.2); Alkaline Phosphatase 73 U/L (46-116); Anion Gap 11 (7-16); Aspartate Amino Transferase 27 U/L (0-34); BUN/Creatinine Ratio 4 Ratio (12-20); Bilirubin,Total < 0.2 mg/dL (0.3-1.2); Blood Urea Nitrogen 20 mg/dL (9-23); Calcium 8.1 mg/dL (8.3-10.6); Calcium (Corrected) 9.0 mg/dL (8.5-10.1); Carbon Dioxide 27.5 mMol/L (20.0-31.0); Chloride 95 mMol/L (98-107); Creatinine (Component) 5.0 mg/dL (0.6-1.3); Estimated Creatinine Clearance 12.1 mL/min (>60); Globulin 3.9 gm/dL (2.3-3.5); Glucose 104 mg/dL (74-106); Magnesium 1.9 mg/dL (1.6-2.6); Osmolality,Calculated 268 (275-295); Phosphorous 3.1 mg/dL (2.4-5.1); Potassium 3.5 mMol/L (3.4-5.1); Sodium 133 mMol/L (136-145); Total Protein 6.8 gm/dL (5.7-8.2); eGFR 9 See Note
--- NOTE | 2025-04-03 10:00 | ESDS_ITS ---
Planned Discharge Date 04/03/25 DS: Providers Provider Date of admission: 03/28/25 06:08 Primary care physician: Physician No Primary/Family Admitting Provider: Raul Mustafa MD Attending Provider on Admission: Kiersten Palacios MD Consults: 03/28/25 10:38 Referral [place] Routine Comment: 03/28/25 10:56 Consult to Nephrology Routine Comment: hemodialysis MWF Consulting Provider: Yohan Cisse 03/29/25 00:01 Consult to Nephrology Routine Comment: Dialysis orders Consulting Provider: Gui Casas Instructions: HD 04/01/25 09:54 Referral Physical Therapy Stat Comment: Physician Instructions: Instructions: for d/c 04/02/25 14:56 Referral Physical Therapy Routine Comment: Physician Instructions: Attending Provider on DC: Raul Mustafa MD Discharging Provider: Raul Mustafa MD DS: Diagnosis Problem List Completed Was Problem List Reviewed/Reconciled?: Yes Hospital Course Hospital Course Hospital course: Lorenza is a 60-year-old female with past medical history of ESRD (HD on MWF), hypertension, hyperlipidemia, DM2, and past CVA, ? hx of thrombosis who was admitted to [facility] on 03/28/2025 for Pyleonephritis 2/2 complicated UTI. Pt arrived to the ED tachypneic, febrile, hypoxic, and hypertensive. She was worked up and was found to have a Hgb of 10.7, elevated CRP, elevated BNP, and UA was positive for RBCs and WBC. Initial imaging included chest x-ray which showed vascular congestion and worsening left lung pneumonia. Abdomen/pelvis CT preliminary report showed no SBO, possible cystitis, possible prior kidney infection, and small pericardial effusions and pleural effusions as well as again noted pneumonia. Medicine was consulted and pt was admitted to the floors. While on the floors, pt had a urine culture reflexed and was put on renally dosed IV Zoysn. Blood cultures showed no growth and urine culture resulted in a contamination. Sensitivies for her last urine culture the prior week showed some resistance and was positive for E coli and Klebsiella. Pt continued to improved. While in the hospital, pt had her normal scheduled dialysis peformed as well. Pt did have some diarrhea in the hospital, and C diff was ruled out with PCR. Xarelto, a home medicine for the patient was not resumed inpatient as she discussed having a hx of thrombosis, but was not sure exactly what it was. As she has been on it for five years, we have held the medicine and recommended to discuss with her PCP to resume the medicine. Pt was then discharged with the following instructions. Discharge Instructions: Follow up with PCP within one week I am going to hold your Xarleto, blood thinner, speak with PCP in regards to resuming it I am prescribing your Bactrim, take as directed to finish up your antibiotic course I am prescribing [place], take as needed for pain Follow up with your Physical Security Engineer outpatient, within one week Follow up with your PCP in regards to your trace pericardial effusion and minimal bilateral pleural effusions Return to ER if your symptoms worsen or return Problem List: #Pyelonephritis #Complicated UTI, E. coli and Klebsiella #Cystitis #Acute hypoxic respiratory failure #Community-acquired pneumonia #Hx of CVA #?Hx of thrombosis #HFpEF #Diarrhea #? C diff, ruled out #Constipation - RESOLVED #Chronic Hematuria #Hx of ESRD (HD on MWF) #Hx of hypertension #Hx of hyperlipidemia #Hx of DM2 #Trace pericardial effusion #Small bilateral pleural effusions Case was discussed with attending physician. Magaly Cummings, PGY II This document was transcribed using voice recognition technology. Minor inaccuracies may be present. Time Spent with Patient Time attestation: Total time spent providing and/or coordinating discharge services: Time spent: Greater than 30 minutes Exam Vital Signs Temp Pulse Resp BP Pulse Ox O2 Del Method O2 Flow Rate 97.3 F 76 18 143/68 H 98 Room Air 2 04/04/25 08:00 04/04/25 08:30 04/04/25 08:00 04/04/25 08:30 04/04/25 08:00 04/04/25 08:00 04/03/25 12:42 Narrative Exam General: A/O x3, no acute distress, obsese, not bed bound Eyes: PERRLA, EOMI. Anicteric, blind. Ears: No ear pain, no ear discharge, Hearing grossly intact. Nose: No nasal discharge. Mouth/Throat: Moist mucous membranes, no redness, no lesions. Neck: Neck supple, non-tender, no cervical lymphadenopathy. Lungs: Decreased bilat air entry lower lobes, No accessory muscle use. No crackles or adventitious sounds. Cardio: Normal S1/S2, regular rhythm, no murmurs, no JVD Abdomen: Soft, no distention, slight tenderness to L side, no guarding or rebound. Extremities: Symmetrical, no significant deformities, +1 bilat pitting peripheral edema , non-tender Skin: No rashes, no lesions, warm to touch. Neuro: No aphasia, Blind at baseline, no facial asymmetry, moving all 4 limbs well. Psych: Cooperative, no flight of ideas Discharge Plan Plan Patient Disposition: Xfer Skilled Nsg Fac (SNF) Care Plan Goals: Discharge Instructions: Follow up with PCP within one week I am going to hold your Xarleto, blood thinner, speak with PCP in regards to resuming it I am prescribing your Bactrim, take as directed to finish up your antibiotic course I am prescribing [place], take as needed for pain Follow up with your Physical Security Engineer outpatient, within one week Follow up with your PCP in regards to your trace pericardial effusion and minimal bilateral pleural effusions Return to ER if your symptoms worsen or return Prescriptions/Referrals Prescriptions/Med Rec: Continued atorvastatin 40 mg tablet 40 mg PO HS calcium acetate(phosphat bind) 667 mg tablet 667 mg PO TID amlodipine [Norvasc] 10 mg tablet 10 mg PO QDAY Qty: 30 0RF meclizine 25 mg Tablet 25 mg PO TID MDD 100mg PRN (Reason: Vertigo) Qty: 90 0RF acetaminophen [Tylenol] 325 mg Tablet 650 mg PO Q6H PRN (Reason: Mild Pain (Scale Score 1-4)) Rx Instructions: Give 2 tabs Q6HR for mild pain hydralazine 100 mg Tablet 100 mg PO TID insulin glargine [Lantus Solostar U-100 Insulin] 100 unit/mL (3 mL) Insulin Pen 22 unit SUBCUT QPM Rx Instructions: Hold if BS <100 ondansetron HCl 4 mg Tablet 4 mg PO Q6H PRN (Reason: Nausea And Vomiting) carvedilol [Coreg] 3.125 mg Tablet 3.125 mg PO BID Rx Instructions: must administer with a meal/food insulin aspart U-100 100 unit/mL Cartridge 1 sliding scale dose SUBCUT USEASDIRECTD hydrocodone-acetaminophen 5-325 mg tablet 1 tab PO Q6H PRN (Reason: age related osteoporosis) melatonin 5 mg tablet 5 mg PO HS Rx Instructions: Give 2 tablets by mouth at bedtime buspirone 7.5 mg tablet 7.5 mg PO BID omeprazole 20 mg capsule,delayed release(DR/EC) 20 mg PO QDAY simethicone [Gas Relief (simethicone)] 80 mg tablet,chewable 80 mg PO QID PRN (Reason: abdominal distention) ergocalciferol (vitamin D2) 1,250 mcg (50,000 unit) capsule 1,250 mcg PO QMONTH Held Xarelto 20 mg tablet 20 mg PO DAILY Hold Instructions: decide with PCP if they deem necessary to resume Discontinued ondansetron 4 mg tablet,disintegrating 4 mg PO Q8H PRN (Reason: nausea and vomiting) Qty: 10 0RF amoxicillin-pot clavulanate 500-125 mg tablet 1 tab PO BID Qty: 12 0RF Rx Instructions: Please take this medicine after hemodialysis. amoxicillin-pot clavulanate [Augmentin] 500-125 mg tablet 1 tab PO BID Qty: 14 0RF ergocalciferol (vitamin D2) 62.5 mcg (2,500 unit) Capsule See Rx Instructions .ROUTE .COMPLEX Rx Instructions: 62.5 mcg orally DAILY ON SUNDAYS atorvastatin [Lipitor] 40 mg tablet 40 mg PO QPM Referrals: No Primary/Family,Physician [Primary Care Provider] - Patient/Caregiver Discharge Instructions Discharge Activity: activity as tolerated Education Materials: Anatomy of the Female Urinary Tract, Urinary Tract Infections in Women, Anemia and Kidney Disease Print Language: Azerbaijani Stand Alone Forms: [facility] Award Info., Patient Portal Info Letter Discharge Order Discharge Orders: Discharge (Routine); Ordered 03/31/25 Ordered By: Magaly Cummings Quality Discharge Quality Measures VTE prophylaxis Attestestation Attestation I discussed with and supervised the resident physician who took care of this patient. I agree with the assessment and plan as above.
--- NOTE | 2025-04-03 16:00 | PC.SS ---
SS spoke to Margaret at [facility], in regards to pending auth. Per Margaret auth was denied. 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 Margaret stated she will get back to SS, as this was news to her.
--- NOTE | 2025-04-03 16:22 | PC.SS ---
SS spoke to Margaret at [facility], in regards to pending auth. Per Margaret auth was denied. 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 Margaret stated she will get back to SS.
--- NOTE | 2025-04-03 16:27 | PC.SS ---
SS received a call from Margaret who stated pt will come back [facility] under senior living, she has left for the day but they can receive pt first thing tomorrow morning.
[2025-04-03] MEDS: TRIMETHOPRIM PO (20:47)
[2025-04-03] MEDS: SULFAMETHOXAZOLE PO (20:47)
[2025-04-03] MEDS: MELATONIN 3 MG TABLET PO (20:48)
[2025-04-03] MEDS: ATORVASTATIN CALCIUM 20 MG TABLET 40 MG PO (20:48)
[2025-04-03] MEDS: MECLIZINE HCL 25 MG TABLET PO (23:00)
[2025-04-04] VITALS: BP 150/70; PULSE 77; RESP 16; TEMP 36.3; O2SAT 99
[2025-04-04 04:00] VITALS: BP 143/68; PULSE 76; RESP 18; TEMP 36.1; O2SAT 98
[2025-04-04 05:32] VITALS: BP 143/68; PULSE 76
[2025-04-04] MEDS: HEPARIN SOD INJ 5000 UNIT/ML VIAL SC (05:33)
[2025-04-04 06:24] LABS: Basophils # (Auto) 0.0 Thou/mm3 (0.0-0.2); Basophils % (Auto) 0 % (0-2.5); Eosinophils # (Auto) 0.0 Thou/mm3 (0.0-0.5); Eosinophils % (Auto) 1 % (0-10); Hematocrit 31.8 % (36.0-46.0); Hemoglobin 10.3 g/dL (12.0-16.0); Immature Granulocytes Auto 0.06 Thou/mm3 (0.00-0.00); Lymphocytes # (Auto) 0.7 Thou/mm3 (1.0-4.8); Lymphocytes % (Auto) 19 % (10-50); Mean Corpuscular HGB Conc 32.4 g/dl (31.0-37.0); Mean Corpuscular Hemoglobin 32.7 pg (25.0-35.0); Mean Corpuscular Volume 101 fL (80-100); Monocytes # (Auto) 0.2 Thou/mm3 (0.0-0.8); Monocytes % (Auto) 5 % (0-12); Neutrophils # (Auto) 2.8 Thou/mm3 (1.8-7.7); Neutrophils % (Auto) 74 % (37-80); Nucleated Red Blood Cell # 0.00 Thou/mm3 (0.00-0.00); Nucleated Red Blood Cell % 0 /100 WBC (0); Platelet Count 150 Thou/mm3 (140-440); RDW Standard Deviation 50.4 fL (36.4-46.3); Red Blood Count 3.15 Miln/mm3 (4.00-5.20); White Blood Count 3.8 Thou/mm3 (3.6-11.0)
[2025-04-04 07:04] LABS: Alanine Aminotransferase 12 U/L (10-49); Albumin, Serum 3.1 gm/dL (3.5-5.0); Albumin/Globulin Ratio 0.8 (1.2-2.2); Alkaline Phosphatase 75 U/L (46-116); Anion Gap 10 (7-16); Aspartate Amino Transferase 26 U/L (0-34); BUN/Creatinine Ratio 3 Ratio (12-20); Bilirubin,Total 0.2 mg/dL (0.3-1.2); Blood Urea Nitrogen 9 mg/dL (9-23); Calcium 8.8 mg/dL (8.3-10.6); Calcium (Corrected) 9.5 mg/dL (8.5-10.1); Carbon Dioxide 29.5 mMol/L (20.0-31.0); Chloride 99 mMol/L (98-107); Creatinine (Component) 3.6 mg/dL (0.6-1.3); Estimated Creatinine Clearance 16.9 mL/min (>60); Globulin 4.1 gm/dL (2.3-3.5); Glucose 110 mg/dL (74-106); Magnesium 1.7 mg/dL (1.6-2.6); Osmolality,Calculated 275 (275-295); Phosphorous 2.7 mg/dL (2.4-5.1); Potassium 3.8 mMol/L (3.4-5.1); Sodium 138 mMol/L (136-145); Total Protein 7.2 gm/dL (5.7-8.2); eGFR 14 See Note
--- NOTE | 2025-04-04 07:25 | ESDS_ITS ---
Planned Discharge Date 04/04/25 DS: Providers Provider Date of admission: 03/28/25 06:08 Primary care physician: Physician No Primary/Family Admitting Provider: Raul Mustafa MD Attending Provider on Admission: Raul Mustafa MD Consults: 03/28/25 10:38 Referral [place] Routine Comment: 03/28/25 10:56 Consult to Nephrology Routine Comment: hemodialysis MWF Consulting Provider: Yohan Cisse 03/29/25 00:01 Consult to Nephrology Routine Comment: Dialysis orders Consulting Provider: Gui Casas Instructions: HD 04/01/25 09:54 Referral Physical Therapy Stat Comment: Physician Instructions: Instructions: for d/c 04/02/25 14:56 Referral Physical Therapy Routine Comment: Physician Instructions: Attending Provider on DC: Magaly Cummings MD Discharging Provider: Magaly Cummings MD DS: Diagnosis Problem List Completed Was Problem List Reviewed/Reconciled?: Yes Hospital Course Hospital Course Hospital course: Lorenza is a 60-year-old female with past medical history of ESRD (HD on MWF), hypertension, hyperlipidemia, DM2, and past CVA, ? hx of thrombosis who was admitted to [facility] on 03/28/2025 for Pyleonephritis 2/2 complicated UTI. Pt arrived to the ED tachypneic, febrile, hypoxic, and hypertensive. She was worked up and was found to have a Hgb of 10.7, elevated CRP, elevated BNP, and UA was positive for RBCs and WBC. Initial imaging included chest x-ray which showed vascular congestion and worsening left lung pneumonia. Abdomen/pelvis CT preliminary report showed no SBO, possible cystitis, possible prior kidney infection, and small pericardial effusions and pleural effusions as well as again noted pneumonia. Medicine was consulted and pt was admitted to the floors. While on the floors, pt had a urine culture reflexed and was put on renally dosed IV Zoysn. Blood cultures showed no growth and urine culture resulted in a contamination. Sensitivies for her last urine culture the prior week showed some resistance and was positive for E coli and Klebsiella. Pt continued to improved. While in the hospital, pt had her normal scheduled dialysis peformed as well. Pt did have some diarrhea in the hospital, and C diff was ruled out with PCR. [place], a home medicine for the patient was not resumed inpatient as she discussed having a hx of thrombosis, but was not sure exactly what it was. As she has been on it for five years, we have held the medicine and recommended to discuss with her PCP to resume the medicine. Pt was then discharged with the following instructions. Currently she is pending insurance authorization. Discharge Instructions: Follow up with PCP within one week I am going to hold your Xarleto, blood thinner, speak with PCP in regards to resuming it I am prescribing your Bactrim, take as directed to finish up your antibiotic course I am prescribing [place], take as needed for pain Follow up with your [facility] outpatient, within one week Follow up with your PCP in regards to your trace pericardial effusion and minimal bilateral pleural effusions Return to ER if your symptoms worsen or return Problem List: #Pyelonephritis #Complicated UTI, E. coli and Klebsiella #Cystitis #Acute hypoxic respiratory failure #Community-acquired pneumonia #Hx of CVA #?Hx of thrombosis #HFpEF #Diarrhea #? C diff, ruled out #Constipation - RESOLVED #Chronic Hematuria #Hx of ESRD (HD on MWF) #Hx of hypertension #Hx of hyperlipidemia #Hx of DM2 #Trace pericardial effusion #Small bilateral pleural effusions Case was discussed with attending physician. Magaly Cummings, PGY II This document was transcribed using voice recognition technology. Minor inaccuracies may be present. Time Spent with Patient Time attestation: Total time spent providing and/or coordinating discharge services: Time spent: Greater than 30 minutes Exam Vital Signs Temp Pulse Resp BP Pulse Ox O2 Del Method O2 Flow Rate 97.0 F 76 18 143/68 H 98 Room Air 2 04/04/25 04:00 04/04/25 05:32 04/04/25 04:00 04/04/25 05:32 04/04/25 04:00 04/04/25 04:00 04/03/25 12:42 Narrative Exam General: A/O x3, no acute distress, obsese, not bed bound Eyes: PERRLA, EOMI. Anicteric, blind. Ears: No ear pain, no ear discharge, Hearing grossly intact. Nose: No nasal discharge. Mouth/Throat: Moist mucous membranes, no redness, no lesions. Neck: Neck supple, non-tender, no cervical lymphadenopathy. Lungs: Decreased bilat air entry lower lobes, No accessory muscle use. No crackles or adventitious sounds. Cardio: Normal S1/S2, regular rhythm, no murmurs, no JVD Abdomen: Soft, no distention, slight tenderness to L side, no guarding or rebound. Extremities: Symmetrical, no significant deformities, +1 bilat pitting peripheral edema , non-tender Skin: No rashes, no lesions, warm to touch. Neuro: No aphasia, Blind at baseline, no facial asymmetry, moving all 4 limbs well. Psych: Cooperative, no flight of ideas Discharge Plan Plan Patient Disposition: Xfer Skilled Nsg Fac (SNF) Care Plan Goals: Discharge Instructions: Follow up with PCP within one week I am going to hold your Xarleto, blood thinner, speak with PCP in regards to resuming it I am prescribing your Bactrim, take as directed to finish up your antibiotic course I am prescribing [place], take as needed for pain Follow up with your [facility] outpatient, within one week Follow up with your PCP in regards to your trace pericardial effusion and minimal bilateral pleural effusions Return to ER if your symptoms worsen or return Prescriptions/Referrals Prescriptions/Med Rec: Continued atorvastatin 40 mg tablet 40 mg PO HS calcium acetate(phosphat bind) 667 mg tablet 667 mg PO TID amlodipine [Norvasc] 10 mg tablet 10 mg PO QDAY Qty: 30 0RF meclizine 25 mg Tablet 25 mg PO TID MDD 100mg PRN (Reason: Vertigo) Qty: 90 0RF acetaminophen [Tylenol] 325 mg Tablet 650 mg PO Q6H PRN (Reason: Mild Pain (Scale Score 1-4)) Rx Instructions: Give 2 tabs Q6HR for mild pain hydralazine 100 mg Tablet 100 mg PO TID insulin glargine [Lantus Solostar U-100 Insulin] 100 unit/mL (3 mL) Insulin Pen 22 unit SUBCUT QPM Rx Instructions: Hold if BS <100 ondansetron HCl 4 mg Tablet 4 mg PO Q6H PRN (Reason: Nausea And Vomiting) carvedilol [Coreg] 3.125 mg Tablet 3.125 mg PO BID Rx Instructions: must administer with a meal/food insulin aspart U-100 100 unit/mL Cartridge 1 sliding scale dose SUBCUT USEASDIRECTD hydrocodone-acetaminophen 5-325 mg tablet 1 tab PO Q6H PRN (Reason: age related osteoporosis) melatonin 5 mg tablet 5 mg PO HS Rx Instructions: Give 2 tablets by mouth at bedtime buspirone 7.5 mg tablet 7.5 mg PO BID omeprazole 20 mg capsule,delayed release(DR/EC) 20 mg PO QDAY simethicone [Gas Relief (simethicone)] 80 mg tablet,chewable 80 mg PO QID PRN (Reason: abdominal distention) ergocalciferol (vitamin D2) 1,250 mcg (50,000 unit) capsule 1,250 mcg PO QMONTH Held Xarelto 20 mg tablet 20 mg PO DAILY Hold Instructions: decide with PCP if they deem necessary to resume Discontinued ondansetron 4 mg tablet,disintegrating 4 mg PO Q8H PRN (Reason: nausea and vomiting) Qty: 10 0RF amoxicillin-pot clavulanate 500-125 mg tablet 1 tab PO BID Qty: 12 0RF Rx Instructions: Please take this medicine after hemodialysis. amoxicillin-pot clavulanate [Augmentin] 500-125 mg tablet 1 tab PO BID Qty: 14 0RF ergocalciferol (vitamin D2) 62.5 mcg (2,500 unit) Capsule See Rx Instructions .ROUTE .COMPLEX Rx Instructions: 62.5 mcg orally DAILY ON SUNDAYS atorvastatin [Lipitor] 40 mg tablet 40 mg PO QPM Referrals: No Primary/Family,Physician [Primary Care Provider] - Patient/Caregiver Discharge Instructions Discharge Activity: activity as tolerated Education Materials: Anatomy of the Female Urinary Tract, Urinary Tract Infections in Women, Anemia and Kidney Disease Print Language: Uzbek Stand Alone Forms: Marilu Award Info., Patient Portal Info Letter Discharge Order Discharge Orders: Discharge (Routine); Ordered 03/31/25 Ordered By: Magaly Cummings Quality Discharge Quality Measures VTE prophylaxis Attestestation MD Attestation Patient seen and evaluated with housestaff. Treated for UTI, pneumonia symptoms. She will contitnue oral antibiotic at home. Follow up witn PCP, return to ER for recurrent symptoms.
[2025-04-04 08:00] VITALS: BP 147/64; PULSE 77; RESP 18; TEMP 36.3; O2SAT 98
[2025-04-04 08:29] VITALS: BP 143/68; PULSE 76
[2025-04-04] MEDS: CALCIUM ACETATE 667 MG TABLET PO (08:29)
[2025-04-04 08:30] VITALS: BP 143/68; PULSE 76
[2025-04-04] MEDS: ONDANSETRON INJ 2 MG/ML INJ 2 ML 4 MG IVP (08:30)
[2025-04-04] MEDS: TRIMETHOPRIM PO (08:30)
[2025-04-04] MEDS: SULFAMETHOXAZOLE PO (08:30)
[2025-04-04] MEDS: PANTOPRAZOLE 20 MG TABLET PO (08:30)
--- NOTE | 2025-04-04 08:51 | PD.RESDS ---
Planned Discharge Date 04/04/25 DS: Providers Provider Date of admission: 03/28/25 06:08 Primary care physician: Physician No Primary/Family Admitting Provider: Raul Mustafa MD Attending Provider on Admission: Kiersten Palacios MD Consults: 03/28/25 10:38 Referral [place] Routine Comment: 03/28/25 10:56 Consult to Nephrology Routine Comment: hemodialysis MWF Consulting Provider: Yohan Cisse 03/29/25 00:01 Consult to Nephrology Routine Comment: Dialysis orders Consulting Provider: Gui Casas Instructions: HD 04/01/25 09:54 Referral Physical Therapy Stat Comment: Physician Instructions: Instructions: for d/c 04/02/25 14:56 Referral Physical Therapy Routine Comment: Physician Instructions: Attending Provider on DC: Kiersten Palacios MD Discharging Provider: Kiersten Palacios MD DS: Diagnosis Problem List Completed Was Problem List Reviewed/Reconciled?: Yes Hospital Course Hospital Course Hospital course: Lorenza is a 60-year-old female with past medical history of ESRD (HD on MWF), hypertension, hyperlipidemia, DM2, and past CVA, ? hx of thrombosis who was admitted to [facility] on 03/28/2025 for Pyleonephritis 2/2 complicated UTI. Pt arrived to the ED tachypneic, febrile, hypoxic, and hypertensive. She was worked up and was found to have a Hgb of 10.7, elevated CRP, elevated BNP, and UA was positive for RBCs and WBC. Initial imaging included chest x-ray which showed vascular congestion and worsening left lung pneumonia. Abdomen/pelvis CT preliminary report showed no SBO, possible cystitis, possible prior kidney infection, and small pericardial effusions and pleural effusions as well as again noted pneumonia. Medicine was consulted and pt was admitted to the floors. While on the floors, pt had a urine culture reflexed and was put on renally dosed IV Zoysn. Blood cultures showed no growth and urine culture resulted in a contamination. Sensitivies for her last urine culture the prior week showed some resistance and was positive for E coli and Klebsiella. Pt continued to improved. While in the hospital, pt had her normal scheduled dialysis peformed as well. Pt did have some diarrhea in the hospital, and C diff was ruled out with PCR. Xarelto, a home medicine for the patient was not resumed inpatient as she discussed having a hx of thrombosis, but was not sure exactly what it was. As she has been on it for five years, we have held the medicine and recommended to discuss with her PCP to resume the medicine. Pt was then discharged with the following instructions. Discharge Instructions: Follow up with PCP within one week I am going to hold your Xarleto, blood thinner, speak with PCP in regards to resuming it I am prescribing your Bactrim, take as directed to finish up your antibiotic course I am prescribing [place], take as needed for pain Follow up with your [facility] [employer] outpatient, within one week Follow up with your PCP in regards to your trace pericardial effusion and minimal bilateral pleural effusions Return to ER if your symptoms worsen or return Problem List: #Pyelonephritis #Complicated UTI, E. coli and Klebsiella #Cystitis #Acute hypoxic respiratory failure #Community-acquired pneumonia #Hx of CVA #?Hx of thrombosis #HFpEF #Diarrhea #? C diff, ruled out #Constipation - RESOLVED #Chronic Hematuria #Hx of ESRD (HD on MWF) #Hx of hypertension #Hx of hyperlipidemia #Hx of DM2 #Trace pericardial effusion #Small bilateral pleural effusions Case was discussed with attending physician. Magaly Cummings, PGY II This document was transcribed using voice recognition technology. Minor inaccuracies may be present. Time Spent with Patient Time attestation: Total time spent providing and/or coordinating discharge services: Time spent: Less than 30 minutes Exam Vital Signs Temp Pulse Resp BP Pulse Ox O2 Del Method O2 Flow Rate 97.0 F 76 18 143/68 H 98 Room Air 2 04/04/25 04:00 04/04/25 08:30 04/04/25 04:00 04/04/25 08:30 04/04/25 04:00 04/04/25 04:00 04/03/25 12:42 Narrative Exam General: A/O x3, no acute distress, obsese, not bed bound Eyes: PERRLA, EOMI. Anicteric, blind. Ears: No ear pain, no ear discharge, Hearing grossly intact. Nose: No nasal discharge. Mouth/Throat: Moist mucous membranes, no redness, no lesions. Neck: Neck supple, non-tender, no cervical lymphadenopathy. Lungs: Decreased bilat air entry lower lobes, No accessory muscle use. No crackles or adventitious sounds. Cardio: Normal S1/S2, regular rhythm, no murmurs, no JVD Abdomen: Soft, no distention, slight tenderness to L side, no guarding or rebound. Extremities: Symmetrical, no significant deformities, +1 bilat pitting peripheral edema , non-tender Skin: No rashes, no lesions, warm to touch. Neuro: No aphasia, Blind at baseline, no facial asymmetry, moving all 4 limbs well. Psych: Cooperative, no flight of ideas Discharge Plan Plan Patient Disposition: Xfer Skilled Nsg Fac (SNF) Care Plan Goals: Discharge Instructions: Follow up with PCP within one week I am going to hold your Xarleto, blood thinner, speak with PCP in regards to resuming it I am prescribing your Bactrim, take as directed to finish up your antibiotic course I am prescribing [place], take as needed for pain Follow up with your [facility] outpatient, within one week Follow up with your PCP in regards to your trace pericardial effusion and minimal bilateral pleural effusions Return to ER if your symptoms worsen or return Prescriptions/Referrals Prescriptions/Med Rec: New hydrocodone-acetaminophen 5-325 mg tablet 1 tab PO Q8H MDD 3 tablets in one day PRN (Reason: pain) 3 Days Qty: 9 0RF Rx Instructions: Take one tablet by mouth as needed for pain up to three times a day sulfamethoxazole-trimethoprim 400-80 mg tablet 1 tab PO BID 2 Days Qty: 4 0RF Rx Instructions: Take one tablet by mouth twice a day Continued atorvastatin 40 mg tablet 40 mg PO HS calcium acetate(phosphat bind) 667 mg tablet 667 mg PO TID amlodipine [Norvasc] 10 mg tablet 10 mg PO QDAY Qty: 30 0RF meclizine 25 mg Tablet 25 mg PO TID MDD 100mg PRN (Reason: Vertigo) Qty: 90 0RF acetaminophen [Tylenol] 325 mg Tablet 650 mg PO Q6H PRN (Reason: Mild Pain (Scale Score 1-4)) Rx Instructions: Give 2 tabs Q6HR for mild pain hydralazine 100 mg Tablet 100 mg PO TID insulin glargine [Lantus Solostar U-100 Insulin] 100 unit/mL (3 mL) Insulin Pen 22 unit SUBCUT QPM Rx Instructions: Hold if BS <100 ondansetron HCl 4 mg Tablet 4 mg PO Q6H PRN (Reason: Nausea And Vomiting) carvedilol [Coreg] 3.125 mg Tablet 3.125 mg PO BID Rx Instructions: must administer with a meal/food insulin aspart U-100 100 unit/mL Cartridge 1 sliding scale dose SUBCUT USEASDIRECTD hydrocodone-acetaminophen 5-325 mg tablet 1 tab PO Q6H PRN (Reason: age related osteoporosis) melatonin 5 mg tablet 5 mg PO HS Rx Instructions: Give 2 tablets by mouth at bedtime buspirone 7.5 mg tablet 7.5 mg PO BID omeprazole 20 mg capsule,delayed release(DR/EC) 20 mg PO QDAY simethicone [Gas Relief (simethicone)] 80 mg tablet,chewable 80 mg PO QID PRN (Reason: abdominal distention) ergocalciferol (vitamin D2) 1,250 mcg (50,000 unit) capsule 1,250 mcg PO QMONTH Held Xarelto 20 mg tablet 20 mg PO DAILY Hold Instructions: decide with PCP if they deem necessary to resume Discontinued ondansetron 4 mg tablet,disintegrating 4 mg PO Q8H PRN (Reason: nausea and vomiting) Qty: 10 0RF amoxicillin-pot clavulanate 500-125 mg tablet 1 tab PO BID Qty: 12 0RF Rx Instructions: Please take this medicine after hemodialysis. amoxicillin-pot clavulanate [Augmentin] 500-125 mg tablet 1 tab PO BID Qty: 14 0RF ergocalciferol (vitamin D2) 62.5 mcg (2,500 unit) Capsule See Rx Instructions .ROUTE .COMPLEX Rx Instructions: 62.5 mcg orally DAILY ON SUNDAYS atorvastatin [Lipitor] 40 mg tablet 40 mg PO QPM Referrals: No Primary/Family,Physician [Primary Care Provider] - Patient/Caregiver Discharge Instructions Discharge Activity: activity as tolerated Education Materials: Anatomy of the Female Urinary Tract, Urinary Tract Infections in Women, Anemia and Kidney Disease Print Language: Dominican Stand Alone Forms: [facility] Award Info., Patient Portal Info Letter Discharge Order Discharge Orders: Discharge (Routine); Ordered 03/31/25 Ordered By: Magaly Cummings Quality Discharge Quality Measures VTE prophylaxis (Heparin ) Attestestation Attestation I attest that I was physically present for the evaluation, physical examination, lab and imaging review of the patient with the residents. I discussed the case with the residents and agree with the findings and plans of care as documented above. Kiersten Palacios MD
--- NOTE | 2025-04-04 09:58 | PC.SS ---
SS set up transport through [facility] #[id number], pending ETA
--- NOTE | 2025-04-04 10:47 | CHAP ---
Patient was visited by a Spiritual Care Volunteer on 04/04/2025 between 0900 and 0920 and received comfort, encouragement and/or prayer.
--- NOTE | 2025-04-04 11:43 | PC.NURSE ---
attempted to call report to SNF nurse x 2, no one answered the phone
== END 2025-04-04 11:30 | disposition skilled nursing facility (03) | DRG 137 ==
LOC: SERX 03-28 01:57 → SERHOLD 03-28 06:23 → S3NX 03-28 09:50
PROVIDERS: Internal Medicine Nephrology; Physician Assistant; Admitting Provider Internal Medicine; Emergency Provider Emergency Medicine; Visit Provider Student in an Organized Health Care Education/Training Program
DX: J15.0 Pneumonia due to Klebsiella pneumoniae (principal); N12 Tubulo-interstitial nephritis, not specified as acute or chronic; Z90.49 Acquired absence of other specified parts of digestive tract; N30.90 Cystitis, unspecified without hematuria; J96.01 Acute respiratory failure with hypoxia; I13.2 Hypertensive heart and chronic kidney disease with heart failure and with stage 5 chronic kidney disease, or end stage renal disease; K59.00 Constipation, unspecified; N18.6 End stage renal disease; Z99.2 Dependence on renal dialysis; E78.5 Hyperlipidemia, unspecified; B96.20 Unspecified Escherichia coli [E. coli] as the cause of diseases classified elsewhere; D63.1 Anemia in chronic kidney disease; E11.22 Type 2 diabetes mellitus with diabetic chronic kidney disease; F41.9 Anxiety disorder, unspecified; I50.30 Unspecified diastolic (congestive) heart failure; I69.349 Monoplegia of lower limb following cerebral infarction affecting unspecified side; Z16.11 Resistance to penicillins; H54.7 Unspecified visual loss; Z79.01 Long term (current) use of anticoagulants; Z79.4 Long term (current) use of insulin; N30.91 Cystitis, unspecified with hematuria; Z86.718 Personal history of other venous thrombosis and embolism; Z87.440 Personal history of urinary (tract) infections; Z79.899 Other long term (current) drug therapy
CPT/HCPCS: 36415; 71045; 74019; 74177; 80053; 80074; 80307; 81001; 82150; 82550; 83036; 83605; 83690; 83735; 83880; 84100; 84145; 84484; 85025; 86140; 86706; 87040; 87081; 87086; 87205; 87493; 87502; 87811; 93306; 96365; 96366; 96367; 96375; 97162; 99285; A4649; J0456; J0696; J1171; J1644; J1815; J1938; J2405; J2543; J7050; P9047; Q9967; A9270

== ENCOUNTER 2025-05-01 11:12 | Emergency (ER) | payer MEDICAID, SELFPAY ==
[2025-05-01] VITALS (10 sets, daily range): BP systolic 123–154; BP diastolic 63–85; PULSE 74–104; RESP 14–92; TEMP 36.9–37.6; O2SAT 92–100; BMI 39.3
--- NOTE | 2025-05-01 11:35 | XR_ITS ---
Examination: AP chest single view TECHNIQUE: AP portable upright chest single view May 01, 2025 1216 hours Comparison March 27, 2025 INDICATIONS: Coughing beginning 3 days ago. FINDINGS: Pneumonia right base with moderate right pleural fluid No significant cardiac enlargement Mild vascular congestion Prominent osteopenia IMPRESSION: Pneumonia right base with moderate right pleural fluid
--- NOTE | 2025-05-01 11:35 | EKG_ITS ---
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
--- NOTE | 2025-05-01 11:44 | EDNOTE_ITS ---
<Statement entered by Lindsay Kemp MD - 05/02/25 08:10> I, Lindsay Kemp MD, have reviewed the history, exam, and assessment of the patient. I have evaluated the patient independently and agree with the plan of care documented by [ ]. All diagnostic studies were reviewed and discussed. I confirm the diagnosis as documented by the Resident. I was present during the Medical Decision Making for this patient. The patient's plan of care was created between myself and the Resident and consistent with our discussion of the patient's case. ED General RME/HPI General Chief complaint: Nausea/Vomiting/Diarrhea Stated complaint: NAUSEA Time Seen by Provider: 05/01/25 11:17 Arrival date/time: 05/01/25 11:12 RME / HPI RME / HPI narrative: 60-year-old female with past medical history of ESRD (HD on MWF), hypertension, hyperlipidemia, DM2, previous CVA, and possible history of thrombosis came into the ED brought in by ambulance from dialysis center. Patient got 2.6 L removed via dialysis and then patient started experiencing chills, lower back pain, nausea, feeling unwell, and feeling warm. Patient states that usually when she gets hemodialysis she gets the symptoms except for the back pain. Patient was recently discharged from the hospital on 04/04/2025 where she was treated with IV antibiotics for pyelonephritis and complicated UTI with E. coli and Klebsiella which were both sensitive to ceftriaxone and she was sent home on Bactrim as well. Patient also complaining of a cough, but denies any vomiting blood, change in bowel movements, chest pain, confusion, or falls. Otherwise no other complaints. Previous meth use, previous smoking, denies any alcohol. Related Data Home Medications ?Medication ?Instructions ?Recorded ?Confirmed atorvastatin 40 mg tablet 40 mg PO HS 12/10/22 5 calcium acetate(phosphat bind) 667 667 mg PO TID 12/1003/28/25 mg tablet rivaroxaban 20 mg tablet (Xarelto) 20 mg PO DAILY 11/2603/28/25 Held on 03/31/25. Instructions: decide with PCP if they deem necessary to resume acetaminophen 325 mg tablet 650 mg PO Q6H PRN Mild Greg n (Scale 01/10/23 03/28/25 (Tylenol) Score 1-4) hydralazine 100 mg tablet 100 mg PO TID 03/25/2303/28 insulin glargine 100 unit/mL (3 22 unit subcut QPM 03/28/25 mL) subcutaneous pen (Lantus Solostar U-100 Insulin) ondansetron HCl 4 mg tablet 4 mg PO Q6H PRN Nausea And Vomiting 03/25/23 03/28/25 carvedilol 3.125 mg tablet (Coreg) 3.125 mg PO BID 03/2003/28/25 insulin aspart U-100 100 unit/mL 1 sliding scale dose subcut 09/02/23 03/28/25 subcutaneous cartridge USEASDIRECTD buspirone 7.5 mg tablet 7.5 mg PO BID 03/28/2503/28 ergocalciferol (vitamin D2) 1,250 1,250 mcg PO QMONTH 03/28/25 03/28/25 mcg (50,000 unit) capsule hydrocodone 5 mg-acetaminophen 325 1 tab PO Q6H PRN ag e related 03/28/2503/28 mg tablet osteoporosis melatonin 5 mg tablet 5 mg PO HS 03/28/25 03/28/25 omeprazole 20 mg capsule,delayed 20 mg PO QDAY 5 03/28/25 release simethicone 80 mg chewable tablet 80 mg PO QID PRN abd ominal 03/28/25 03/28/25 (Gas Relief (simethicone)) distention Previous Rx's ?Medication ?Instructions ?Recorded amlodipine 10 mg tablet (Norvasc) 10 mg PO QDAY #30 ta bs 12/11/22 meclizine 25 mg tablet 25 mg PO TID PRN Vertigo #90 tabs 12/18/22 azithromycin 500 mg tablet 500 mg PO QDAY 2 days #2 ta bs 05/01/25 sulfamethoxazole 800 1 tab PO BID 14 days #28 tab s 05/01/25 mg-trimethoprim 160 mg tablet (Bactrim DS) Allergies Allergy/AdvReac Type Severity Reaction Status Date / Time levofloxacin Allergy Mild Vomiting Verified 05/01/25 11:42 Review of Systems Review of Systems Systems Reviewed: All systems reviewed, normal except as documented Past Medical History Past Medical History NEUROLOGIC: Positive Neurological Disorders and Cerebrovascular Accident; Negative Seizures CARDIAC: Positive Cardiac Disorders, Angina, Hypercholesterolemia, Congestive Heart Failure and Hypertension RESPIRATORY: Positive Chronic Obstructive Pulmonary Disease (COPD) and Pneumonia; Negative Asthma GASTROINTESTINAL: Negative Gastrointestinal Disorders or Gall Bladder Disease GENITOURINARY: Positive Genitourinary Disorders, Renal Disease and Dialysis REPRODUCTIVE: Positive Previous Pregnancies MUSCULOSKELETAL: Positive Musculoskeletal Disorders, Arthritis, Rheumatoid Arthritis and Osteoporosis ENT: Positive Blind and Deafness ENDOCRINE: Positive Endocrine Disorders and Diabetes Mellitus Type 2; Negative Diabetes Mellitus Type 1 HEMATOLOGIC: Positive Blood Disorders and Anemia; Negative Sickle Cell Disease PSYCHO/SOCIAL: Positive Depression and Anxiety OTHER HISTORY: Positive Hospitalization, Blood Transfusions, Chicken Pox and Measles; Negative Autoimmune Disease, Down Syndrome, Developmental Delay, Shingles, Falls, Blood Transfusion Reaction, Anesthesia Reactions or Cancer Family History FAMILY HISTORY: Positive Family Cardiac Disorders; Negative Family Psychiatric Problems, Family Respiratory Disorders, Family Ga strointestinal Problems, Family Cancer, Family Surgery or Family Anesthesia Reaction Surgical History SURGICAL: Positive Open Reduction Internal Fixation; Negative Mastectomy Social History SMOKING STATUS: Unknown if ever smoked SUBSTANCE USE: former substance user (quit 2 years ago (nonspecific on what she used)) ED Exam Narrative Physical exam: Gen: A&O X 3, NAD HEENT: NCAT, EOMI, Pupils reactive SYED, not icteric. External ears normal. No rhinorrhea. Moist mucous membranes. Neck: Supple, full range of motion, no observable masses, No meningeal sign. Lungs: No Respiratory distress, clear bilateral. CV: RRR, no murmurs. Abdomen: Soft, nondistended, No rebound tenderness. MSK: No joint swelling, no redness, peripheral pulses presents, lumbar with no edema. Skin: No rashes, petechiae, lesions.. Neuro: No focal neurological deficits appreciated, sensory and motor intact. Psych: Cooperative, appropriate mood and effect. Course Quality Measures none Orders Category Date Time Status Bedside COVID-19 Antigen Test NOW Care 05/01/25 12:00 Active Bedside Influenza A&B Antigen Test NOW Care 05/01/25 12:01 Completed Binder Cutter Hand Q4H START 00 Care 05/01/25 11:35 Active Continuous Pulse Oximetry NOW Care 05/01/25 11:35 Completed EKG (ED ONLY) *Do not use* NOW Care 05/01/25 11:37 Completed IV [Insert IV] NOW Care 05/01/25 11:35 Active In and Out Catheter X1 Care 05/01/25 11:45 Completed CXRP [XR chest 1V portable] Stat Exams 05/01/25 11:35 Completed EKG (ED Only) Stat Exams 05/01/25 11:35 Draft Blood Culture (Lab) Stat Lab 05/01/25 12:12 Received CBC [CBC] Stat Lab 05/01/25 12:12 Completed CMP [Comprehensive Metabolic Panel] Stat Lab 05/01/25 12:12 Completed Drug Screen,Urine Stat Lab 05/01/25 11:48 Completed Lactic Acid [Lactate (Lactic Acid)] Stat Lab 05/01/25 12:12 Completed Magnesium Stat Lab 05/01/25 12:12 Completed Procalcitonin Stat Lab 05/01/25 12:12 Completed UA [Urinalysis] Stat Lab 05/01/25 11:48 Completed Azithromycin Inj [Zithromax Inj] 500 mg Med 05/02/25 09:00 Pending Sodium Chloride 0.9% 250 ml [Ns] 250 ml IV QDAY Azithromycin Inj [Zithromax Inj] 500 mg Med 05/01/25 13:45 Discontinued Sodium Chloride 0.9% 250 ml [Ns] 250 ml IV X1 HYDROcodone*/APAP 5/325 [Keyport 5/325] Med 05/01/25 14:55 Discontinued 1 tab PO X1 ONE Magnesium Sulfate 2 GM Ivpb [Magnesium Sulfate Ivpb] Med 05/01/25 13:31 Discontinued 2 gm in 50 ml IV X1 Ondansetron Inj [Zofran Inj] Med 05/01/25 11:35 Active 4 mg IVP Q6HR PRN cefTRIAXone/D5w 1gm IV premix [Rocephin/D5w 1gm IV Med 05/01/25 11:37 Discontinued premix] 1 gm in 50 ml IV X1 Vital Signs Vital signs: Vital Signs Temperature 98.4 F 05/01/25 11:23 Pulse Rate 99 05/01/25 11:23 Respiratory Rate 22 H 05/01/25 11:23 Blood Pressure 154/63 H 05/01/25 11:23 Pulse Oximetry (%) 99 05/01/25 11:23 Oxygen Delivery Method Nasal Cannula 05/01/25 11:23 Oxygen Flow Rate 6 05/01/25 11:23 Discharge Plan Plan Patient Disposition: HOME (Self Care) Prescriptions/Referrals Prescriptions/Med Rec: New azithromycin 500 mg tablet 500 mg PO QDAY 2 Days Qty: 2 0RF Rx Instructions: start on day 2 of therapy sulfamethoxazole-trimethoprim [Bactrim DS] 800-160 mg tablet 1 tab PO BID 14 Days Qty: 28 0RF No Action atorvastatin 40 mg tablet 40 mg PO HS calcium acetate(phosphat bind) 667 mg tablet 667 mg PO TID Xarelto 20 mg tablet 20 mg PO DAILY amlodipine [Norvasc] 10 mg tablet 10 mg PO QDAY Qty: 30 0RF meclizine 25 mg Tablet 25 mg PO TID MDD 100mg PRN (Reason: Vertigo) Qty: 90 0RF acetaminophen [Tylenol] 325 mg Tablet 650 mg PO Q6H PRN (Reason: Mild Pain (Scale Score 1-4)) Rx Instructions: Give 2 tabs Q6HR for mild pain hydralazine 100 mg Tablet 100 mg PO TID insulin glargine [Lantus Solostar U-100 Insulin] 100 unit/mL (3 mL) Insulin Pen 22 unit SUBCUT QPM Rx Instructions: Hold if BS <100 ondansetron HCl 4 mg Tablet 4 mg PO Q6H PRN (Reason: Nausea And Vomiting) carvedilol [Coreg] 3.125 mg Tablet 3.125 mg PO BID Rx Instructions: must administer with a meal/food insulin aspart U-100 100 unit/mL Cartridge 1 sliding scale dose SUBCUT USEASDIRECTD hydrocodone-acetaminophen 5-325 mg tablet 1 tab PO Q6H PRN (Reason: age related osteoporosis) melatonin 5 mg tablet 5 mg PO HS Rx Instructions: Give 2 tablets by mouth at bedtime buspirone 7.5 mg tablet 7.5 mg PO BID omeprazole 20 mg capsule,delayed release(DR/EC) 20 mg PO QDAY simethicone [Gas Relief (simethicone)] 80 mg tablet,chewable 80 mg PO QID PRN (Reason: abdominal distention) ergocalciferol (vitamin D2) 1,250 mcg (50,000 unit) capsule 1,250 mcg PO QMONTH Referrals: No Primary/Family,Physician [Primary Care Provider] - In 1 week Problem List Clinical Impression: Pneumonia, UTI (urinary tract infection), bacterial Patient/Caregiver Discharge Instructions Other Activity Instructions:: Please follow-up with primary care physician within 5 days You have been prescribed azithromycin for 2 more days for your pneumonia You have been prescribed Bactrim for 14 days. Recommend outpatient Urology for recurrent UTI. Come back to the ER if you develop ongoing fevers, worsening pain, nausea/vomiting, or worsening symptoms. Education Materials: What Is Pneumonia?, Urinary Tract Infections in Women, When You Have Pneumonia Print Language: Pashto Stand Alone Forms: [employer] Award Info., Patient Portal Info Letter [facility] Narrative [facility] hospital course: 11:25: Patient was greeted and assessed by myself. Patient at this time did not have a temperature, blood pressure was stable, and only met SIRS criteria 1 out of 4 with increased respiratory rate of 22. At this time patient there is low suspicion for sepsis, but will reassess based off blood work and will still start antibiotics. 11:35: Very diagnostic labs and imaging. 13:31: Reviewed labs and imaging. Ordered Magnesium and Azithromycin. Patient reevaluated and was feeling better, nontoxic. 14:55: Patient reassessed. Complaining of neck pain 10/10, but otherwise feeling well. Ordered Keyport 5 x1. 16:05: Patient reassessed and was feeling a lot better and had not spiked a fever throughout the course in the ED. At this time patient feels well and is stable enough to be discharged home. She agrees with the plan. Will be discharged on p.o. antibiotics. Case disclosed with Attending Dr. Viridiana Silva PGY2 Disclaimer: Even though this this note was dictated by speech recognition and even though it was carefully revised there may still be minor errors in fire prevention chief due to voice recognition software. Medication Administration(s) Medication Administration History Azithromycin 500 mg/ Sodium (Chloride) 250 mls @ 250 mls/hr IV QDAY [facility] Stop: 05/09/25 08:59 Ondansetron HCl (Ondansetron Inj 2 Mg/Ml Inj 2 Ml) 4 mg IVP Q6HR PRN; Protocol PRN Reason: NAUSEA OR VOMITING Stop: 05/31/25 11:34 Last Admin: 05/01/25 12:10 Dose: 4 mg Documented By: GM Discontinued Medications Hydrocodone Bitart/Acetaminophen (Hydrocodone/Apap 5/325 Tablet) 1 tab PO X1 ONE Stop: 05/01/25 14:56 Last Admin: 05/01/25 15:13 Dose: 1 tab Documented By: Ceftriaxone Sodium/Dextrose (Rocephin/D5w 1gm Iv Premix) 1 gm in 50 mls @ 100 mls/hr IV X1 ONE Stop: 05/01/25 12:06 Last Infusion: 05/01/25 12:53 Dose: Infused Documented By: Admin: 05/01/25 12:15 Dose: 100 mls/hr Documented By: ASH Magnesium Sulfate (Magnesium Sulfate Ivpb) 2 gm in 50 mls @ 25 mls/hr IV X1 ONE Stop: 05/01/25 15:30 Last Admin: 05/01/25 14:51 Dose: 25 mls/hr Documented By: ASH Azithromycin 500 mg/ Sodium (Chloride) 250 mls @ 250 mls/hr IV X1 ONE Stop: 05/01/25 14:44 Last Infusion: 05/01/25 14:50 Dose: Infused Documented By: Admin: 05/01/25 13:49 Dose: 250 mls/hr Documented By: ASH
[2025-05-01 12:07] LABS: Collection Type, Urine Catheter
[2025-05-01] MEDS: ONDANSETRON INJ 2 MG/ML INJ 2 ML 4 MG IVP (12:10)
[2025-05-01] MEDS: cefTRIAXone/D5w 1gm IV premix 1 GM/50 ML BAG IV (12:15)
[2025-05-01 12:21] LABS: Lactate (Lactic Acid) 1.5 mMol/L (0.4-2.0)
[2025-05-01 12:28] LABS: Basophils # (Auto) 0.0 Thou/mm3 (0.0-0.2); Basophils % (Auto) 0 % (0-2.5); Eosinophils # (Auto) 0.0 Thou/mm3 (0.0-0.5); Eosinophils % (Auto) 0 % (0-10); Hematocrit 30.5 % (36.0-46.0); Hemoglobin 9.8 g/dL (12.0-16.0); Immature Granulocytes Auto 0.13 Thou/mm3 (0.00-0.00); Lymphocytes # (Auto) 0.5 Thou/mm3 (1.0-4.8); Lymphocytes % (Auto) 6 % (10-50); Mean Corpuscular HGB Conc 32.1 g/dl (31.0-37.0); Mean Corpuscular Hemoglobin 32.9 pg (25.0-35.0); Mean Corpuscular Volume 102 fL (80-100); Monocytes # (Auto) 0.2 Thou/mm3 (0.0-0.8); Monocytes % (Auto) 2 % (0-12); Neutrophils # (Auto) 7.8 Thou/mm3 (1.8-7.7); Neutrophils % (Auto) 90 % (37-80); Nucleated Red Blood Cell # 0.00 Thou/mm3 (0.00-0.00); Nucleated Red Blood Cell % 0 /100 WBC (0); Platelet Count 190 Thou/mm3 (140-440); RDW Standard Deviation 57.1 fL (36.4-46.3); Red Blood Count 2.98 Miln/mm3 (4.00-5.20); White Blood Count 8.6 Thou/mm3 (3.6-11.0)
[2025-05-01 12:47] LABS: Bacteria,Urine 4+; Bilirubin,Urine Negative (Negative); Blood,Urine 1+ (Negative); Glucose, Urine Negative (Negative); Ketones,Urine Negative (Negative); Leukocyte Esterase,Urine Positive (Negative); Nitrite,Urine Negative (Negative); PH,Urine 6.0 (5.0-7.0); Protein,Urine 2+ (Neg - Trace); RBC,Urine 41 /hpf (0-3); Specific Gravity,Urine 1.015 (1.001-1.035); Squamous Epithelial Cell,Urine 2 /hpf (0-5); Urobilinogen,Urine Negative mg/dL (0.0-1.0); WBC,Urine 3603 /hpf (0-5)
[2025-05-01 13:00] LABS: Amphetamine/Methamp Scrn,U Negative (Negative); Barbiturate Screen,Urine Negative (Negative); Benzodiazepines Screen,Urine Negative (Negative); Benzoylecgonine Screen, Ur Negative (Negative); Color,Urine Yellow (Lt Yel-Yel); Fentanyl Screen,Urine Negative (Negative); Opiate Screen,Urine Positive (Negative); THC Screen,Urine Negative (Negative)
[2025-05-01 13:01] LABS: Clarity,Urine Turbid (Clear/Hazy)
[2025-05-01 13:17] LABS: Alanine Aminotransferase 15 U/L (10-49); Albumin, Serum 3.4 gm/dL (3.5-5.0); Albumin/Globulin Ratio 0.9 (1.2-2.2); Alkaline Phosphatase 65 U/L (46-116); Anion Gap 10 (7-16); Aspartate Amino Transferase 26 U/L (0-34); BUN/Creatinine Ratio 5 Ratio (12-20); Bilirubin,Total 0.3 mg/dL (0.3-1.2); Blood Urea Nitrogen 12 mg/dL (9-23); Calcium 8.0 mg/dL (8.3-10.6); Calcium (Corrected) 8.5 mg/dL (8.5-10.1); Carbon Dioxide 30.9 mMol/L (20.0-31.0); Chloride 97 mMol/L (98-107); Creatinine (Component) 2.2 mg/dL (0.6-1.3); Estimated Creatinine Clearance 28.9 mL/min (>60); Globulin 3.7 gm/dL (2.3-3.5); Glucose 97 mg/dL (74-106); Magnesium 1.3 mg/dL (1.6-2.6); Osmolality,Calculated 275 (275-295); Potassium 3.4 mMol/L (3.4-5.1); Procalcitonin 0.59 ng/ml (0.0-0.49); Sodium 138 mMol/L (136-145); Total Protein 7.1 gm/dL (5.7-8.2); eGFR 25 See Note
[2025-05-01] MEDS: AZITHROMYCIN INJ 500 MG in SODIUM CHLORIDE 0.9% 250 ML 250 ML 250 MG IV (13:49)
[2025-05-01] MEDS: Magnesium Sulfate 2 GM Ivpb 2 GM/50 ML BAG IV (14:51)
[2025-05-01] MEDS: HYDROcodone/APAP 5/325 TABLET 1 TAB PO (15:13)
--- NOTE | 2025-05-01 16:40 | PC.CC ---
Ashley IVEY was consulted by ERIC Santamaria regarding transportation for the patient back home. PROBATION AGENT made telephone contact with [facility] to obtain reservation [phone]. PROBATION AGENT requested [facility] with [facility]
--- NOTE | 2025-05-01 17:00 | PC.NURSE ---
SPOKE TO ÓSCAR MATAMOROS FROM [facility] FOR SBAR REPORT; ÓSCAR MATAMOROS MADE AWARE BY THIS RN THAT TRANSPORT WILL BE ARRANGED BY [facility] [employer] AND THIS RN WILL CALL BACK FOR ETA.
--- NOTE | 2025-05-01 20:49 | PC.NURSE ---
report called via telephone to nurse wilmer schmitz [facility]
== END 2025-05-01 20:52 | disposition home or self-care (01) ==
DX: J18.9 Pneumonia, unspecified organism (principal); N39.0 Urinary tract infection, site not specified; B96.89 Other specified bacterial agents as the cause of diseases classified elsewhere; R00.0 Tachycardia, unspecified
CPT/HCPCS: 51701; 36415; 71045; 80053; 80307; 81001; 83605; 83735; 84145; 85025; 87040; 87400; 87811; 93005; 96365; 96366; 96375; 99283; J0456; J0696; J2405; J3475; J7050; A9270

== ENCOUNTER 2025-07-21 07:45 | Emergency (ER) | payer MEDICAID, SELFPAY ==
[2025-07-21] VITALS (8 sets, daily range): BP systolic 102–152; BP diastolic 62–75; PULSE 67–88; RESP 16–22; TEMP 36.8–38.8; O2SAT 95–100; BMI 37.8
--- NOTE | 2025-07-21 08:03 | EKG_ITS ---
[facility] Test Date: 2025-07-21 Pat Name: IGOR HINES Department: Room: - Gender: Female Staff Anesthetist: : 1965 Requested By: Anthony Jensen Order Number: [id number] Reading MD: Anthony Jensen Measurements Intervals [place] Rate: 75 P: 24 GA: 157 QRS: -16 QRSD: 90 T: 21 QT: 400 QTc: 448 Interpretive Statements SINUS RHYTHM Compared to ECG 05/01/2025 11:39:19 Sinus tachycardia no longer present Short GA interval no longer present ST (T wave) deviation no longer present /store/S0/[id number]/ecg/[id number].pdf
--- NOTE | 2025-07-21 08:03 | XR_ITS ---
EXAMINATION: AP chest single view TECHNIQUE: AP portable upright chest single view Date and time: July 21, 2025, 0822 hours, comparison May 01, 2025 INDICATIONS: Weakness shortness of breath coughing low blood pressure today FINDINGS: Pneumonia in the right base with large right pleural effusion Normal heart size Left lung clear Severe osteopenia IMPRESSION: Pneumonia right base with large right pleural effusion with
[2025-07-21] MEDS: SODIUM CHLORIDE 0.9% 500 ML 500 ML 250 ML IV (08:34)
[2025-07-21 08:48] LABS: Basophils # (Auto) 0.0 Thou/mm3 (0.0-0.2); Basophils % (Auto) 0 % (0-2.5); Eosinophils # (Auto) 0.0 Thou/mm3 (0.0-0.5); Eosinophils % (Auto) 0 % (0-10); Hematocrit 36.6 % (36.0-46.0); Hemoglobin 11.9 g/dL (12.0-16.0); Immature Granulocytes Auto 0.04 Thou/mm3 (0.00-0.00); Lymphocytes # (Auto) 0.7 Thou/mm3 (1.0-4.8); Lymphocytes % (Auto) 13 % (10-50); Mean Corpuscular HGB Conc 32.5 g/dl (31.0-37.0); Mean Corpuscular Hemoglobin 33.0 pg (25.0-35.0); Mean Corpuscular Volume 101 fL (80-100); Monocytes # (Auto) 0.2 Thou/mm3 (0.0-0.8); Monocytes % (Auto) 3 % (0-12); Neutrophils # (Auto) 4.5 Thou/mm3 (1.8-7.7); Neutrophils % (Auto) 82 % (37-80); Nucleated Red Blood Cell # 0.00 Thou/mm3 (0.00-0.00); Nucleated Red Blood Cell % 0 /100 WBC (0); Platelet Count 139 Thou/mm3 (140-440); RDW Standard Deviation 51.0 fL (36.4-46.3); Red Blood Count 3.61 Miln/mm3 (4.00-5.20); White Blood Count 5.5 Thou/mm3 (3.6-11.0)
[2025-07-21 09:10] LABS: INR 1.2 (0.9-1.3); Prothrombin Time 12.7 Seconds (9.0-12.2)
[2025-07-21 09:15] LABS: Alanine Aminotransferase < 7 U/L (10-49); Albumin, Serum 2.9 gm/dL (3.5-5.0); Albumin/Globulin Ratio 0.8 (1.2-2.2); Alkaline Phosphatase 61 U/L (46-116); Anion Gap 11 (7-16); Aspartate Amino Transferase 24 U/L (0-34); BUN/Creatinine Ratio 5 Ratio (12-20); Bilirubin,Total 0.2 mg/dL (0.3-1.2); Blood Urea Nitrogen 20 mg/dL (9-23); Calcium 8.0 mg/dL (8.3-10.6); Calcium (Corrected) 8.9 mg/dL (8.5-10.1); Carbon Dioxide 29.5 mMol/L (20.0-31.0); Chloride 97 mMol/L (98-107); Creatinine (Component) 4.4 mg/dL (0.6-1.3); Estimated Creatinine Clearance 14.1 mL/min (>60); Globulin 3.8 gm/dL (2.3-3.5); Glucose 131 mg/dL (74-106); Osmolality,Calculated 278 (275-295); Potassium 3.2 mMol/L (3.4-5.1); Sodium 137 mMol/L (136-145); Total Protein 6.7 gm/dL (5.7-8.2); Troponin I < 0.002 ng/mL (0.0-0.045); eGFR 11 See Note
--- NOTE | 2025-07-21 09:17 | CHAP ---
Patient expressed gratitude for visit and prayer.
[2025-07-21] MEDS: ONDANSETRON INJ 2 MG/ML INJ 2 ML 4 MG IVP (13:36)
[2025-07-21] MEDS: ACETAMINOPHEN IVPB 1,000 MG/100 ML VIAL 250 MG IV (13:38)
[2025-07-21] MEDS: PIPER/TAZO 3.375 GM PREMIX 3.375 GM/50 ML BAG IV (13:44)
--- NOTE | 2025-07-21 15:08 | PD.EDWEAK ---
ED Weakness RME/HPI General Chief complaint: Weakness Stated complaint: WEAKNESS Time Seen by Provider: 07/21/25 07:56 Arrival date/time: 07/21/25 07:45 Limitations: no limitations RME / HPI RME / HPI Narrative: 60 year old female with history of CVA, ESRD on HD on //, hypertension, diabetes, hyperlipidemia presents to the ED BIBA from the dialysis center for evaluation of low blood pressure today. Per medics, staff on scene reported SBP in the 80s. State they repeated blood pressure at SBP 116. Patient complains of feeling globally weak, otherwise has no other complaints. Related Data Home Medications ?Medication ?Instructions ?Recorded ?Confirmed atorvastatin 40 mg tablet 40 mg PO HS 12/10/22 03/28/25 calcium acetate(phosphat bind) 667 667 mg PO TID 12/10/22 03/28/25 mg tablet rivaroxaban 20 mg tablet (Xarelto) 20 mg PO DAILY 12/10/22 03/28/25 Held on 03/31/25. Instructions: decide with PCP if they deem necessary to resume acetaminophen 325 mg tablet 650 mg PO Q6H PRN Mild Pain (Scale 01/10/23 03/28/25 (Tylenol) Score 1-4) hydralazine 100 mg tablet 100 mg PO TID 03/25/23 03/28/25 insulin glargine 100 unit/mL (3 22 unit subcut QPM 03/25/23 03/28/25 mL) subcutaneous pen (Lantus Solostar U-100 Insulin) ondansetron HCl 4 mg tablet 4 mg PO Q6H PRN Nausea And Vomiting 03/25/23 03/28/25 carvedilol 3.125 mg tablet (Coreg) 3.125 mg PO BID 09/02/23 03/28/25 insulin aspart U-100 100 unit/mL 1 sliding scale dose subcut 09/02/23 03/28/25 subcutaneous cartridge USEASDIRECTD buspirone 7.5 mg tablet 7.5 mg PO BID 03/28/25 03/28/25 ergocalciferol (vitamin D2) 1,250 1,250 mcg PO QMONTH 03/28/25 03/28/25 mcg (50,000 unit) capsule hydrocodone 5 mg-acetaminophen 325 1 tab PO Q6H PRN age related 03/28/25 03/28/25 mg tablet osteoporosis melatonin 5 mg tablet 5 mg PO HS 03/28/25 03/28/25 omeprazole 20 mg capsule,delayed 20 mg PO QDAY 03/28/25 03/28/25 release simethicone 80 mg chewable tablet 80 mg PO QID PRN abdominal 03/28/25 03/28/25 (Gas Relief (simethicone)) distention Previous Rx's ?Medication ?Instructions ?Recorded amlodipine 10 mg tablet (Norvasc) 10 mg PO QDAY #30 tabs 12/11/22 meclizine 25 mg tablet 25 mg PO TID PRN Vertigo #90 tabs 12/18/22 cephalexin 500 mg capsule 500 mg PO TID 10 days #30 caps 07/21/25 Allergies Allergy/AdvReac Type Severity Reaction Status Date / Time levofloxacin Allergy Mild Vomiting Verified 05/01/25 11:42 Review of Systems Review of Systems Systems Reviewed: All systems reviewed, normal except as documented Past Medical History Past Medical History NEUROLOGIC: Positive Neurological Disorders and Cerebrovascular Accident CARDIAC: Positive Cardiac Disorders, Angina, Hypercholesterolemia, Congestive Heart Failure and Hypertension RESPIRATORY: Positive Chronic Obstructive Pulmonary Disease (COPD) and Pneumonia GENITOURINARY: Positive Genitourinary Disorders, Renal Disease and Dialysis REPRODUCTIVE: Positive Previous Pregnancies MUSCULOSKELETAL: Positive Musculoskeletal Disorders, Arthritis, Rheumatoid Arthritis and Osteoporosis ENT: Positive Blind and Deafness ENDOCRINE: Positive Endocrine Disorders and Diabetes Mellitus Type 2 HEMATOLOGIC: Positive Blood Disorders and Anemia PSYCHO/SOCIAL: Positive Depression and Anxiety OTHER HISTORY: Positive Hospitalization, Blood Transfusions, Chicken Pox and Measles Family History FAMILY HISTORY: Positive Family Cardiac Disorders Surgical History SURGICAL: Positive Open Reduction Internal Fixation; Negative Mastectomy Social History SMOKING STATUS: Never smoker SUBSTANCE USE: former substance user (quit 2 years ago (nonspecific on what she used)) ED Exam General Limitations: Present no limitations General appearance: Present alert and in no apparent distress Head Head exam: Present atraumatic Eye Eye exam: Present normal appearance, PERRL and EOMI ENT ENT exam: Present normal exam, normal oropharynx and mucous membranes moist Neck Neck exam: Present normal inspection, full ROM and trachea midline Chest Chest inspection: Present normal inspection and symmetric chest wall rise Respiratory Respiratory exam: Present normal lung sounds bilaterally Cardiovascular Cardiovascular exam: Present regular rate, normal rhythm and normal heart sounds Abdominal Exam Abdominal exam: Present soft and normal bowel sounds Extremities Exam Extremities exam: Present full ROM and other (AV fistula left upper extremity with good thrill ) Back Exam Back exam: Present normal inspection and full ROM Neurological Exam Neurological exam: Present alert, oriented X3 and CN II-XII intact Psychiatric Psychiatric exam: Present normal affect and normal mood Skin Skin exam: Present warm, dry, intact and normal color Course Quality Measures none Orders Category Date Time Status Mill Control Operator NOW Care 07/21/25 08:03 Active Continuous Pulse Oximetry NOW Care 07/21/25 08:03 Completed EKG (ED ONLY) *Do not use* NOW Care 07/21/25 08:03 Completed Insert IV NOW Care 07/21/25 08:03 Active Diet Carbohydrate Consistent Diet 07/21/25 Breakfast Active EKG (ED Only) Stat Exams 07/21/25 08:03 Draft XR chest 1V portable Stat Exams 07/21/25 08:03 Completed CBC Stat Lab 07/21/25 08:20 Completed Comprehensive Metabolic Panel Stat Lab 07/21/25 08:20 Completed Prothrombin Time with INR Stat Lab 07/21/25 08:20 Completed Troponin I Stat Lab 07/21/25 08:20 Completed Acetaminophen Ivpb [Ofirmev Inj] Med 07/21/25 13:28 Discontinued 1,000 mg in 100 ml IV X1 Ondansetron Inj [Zofran Inj] Med 07/21/25 13:28 Discontinued 4 mg IVP X1 ONE Piper/Tazo 3.375 gm Premix [Zosyn] Med 07/21/25 13:33 Discontinued 3.375 gm in 50 ml IV X1 Sodium Chloride 0.9% 500 ml [Ns] 500 ml Med 07/21/25 08:04 Discontinued IV 250 mls/hr Late Tray Request Routine Oth 07/21/25 09:38 Active Vital Signs Vital signs: Vital Signs Temperature 98.9 F 07/21/25 07:55 Pulse Rate 76 07/21/25 07:55 Respiratory Rate 16 07/21/25 07:55 Blood Pressure 102/64 07/21/25 07:55 Pulse Oximetry (%) 100 07/21/25 07:55 Oxygen Delivery Method Nasal Cannula 07/21/25 07:55 Oxygen Flow Rate 2 07/21/25 07:55 Weakness MDM Narrative MDM Narrative:: Jaquelin Aldana am scribing for and in the presence of Dr. Jeffers. Patient data External records reviewed:: [facility] previous records and EMS form Clinical information provided by:: patient and EMS Social determinants that could affect healthcare access:: none Patient has the following chronic illnesses:: CVA, ESRD on HD on M/W/F, hypertension, diabetes, hyperlipidemia How is presenting disease/condition affected by chronic disease/condition?: exacerbated by Evaluation data The following diagnostics were reviewed and interpreted by me:: lab results, radiology exam(s) and EKG tracing(s) (EKG @ 08:31 AM. Normal sinus rhythm, rate 75, no STEMI. ) Lab and/or radiology exams considered but not ordered:: None Interpretation Summary: Ordering Physician: Anthony Jeffers MD Date of Service: 07/21/25 Procedure(s): XR chest 1V portable Accession Number(s): [id number] cc: Anthony Jeffers MD; Augusto Ball MD; NO PRIMARY/FAMILY,PHYSICIAN~ EXAMINATION: AP chest single view TECHNIQUE: AP portable upright chest single view Date and time: July 21, 2025, 0822 hours, comparison May 01, 2025 INDICATIONS: Weakness shortness of breath coughing low blood pressure today FINDINGS: Pneumonia in the right base with large right pleural effusion Normal heart size Left lung clear Severe osteopenia IMPRESSION: Pneumonia right base with large right pleural effusion with Dictated By: Augusto Ball MD Signed By: <Electronically signed by Augusto Ball MD in OV> 07/21/25 0931 Medications / Prescriptions Medications or Prescriptions considered but not ordered:: None Medication administrations:: Medication Administration History Discontinued Medications Sodium Chloride (Ns) 500 mls @ 250 mls/hr IV .Q2H ONE Stop: 07/21/25 10:03 Last Infusion: 07/21/25 11:06 Dose: Infused Documented By: Admin: 07/21/25 08:34 Dose: 250 mls/hr Documented By: URSULA Acetaminophen (Ofirmev Inj) 1,000 mg in 100 mls @ 250 mls/hr IV X1 ONE Stop: 07/21/25 13:51 Last Infusion: 07/21/25 14:38 Dose: Infused Documented By: Admin: 07/21/25 13:38 Dose: 250 mls/hr Documented By: URSULA Piperacillin/Tazobactam/Dextrose (Zosyn) 3.375 gm in 50 mls @ 100 mls/hr IV X1 ONE; Protocol Stop: 07/21/25 14:02 Last Infusion: 07/21/25 14:14 Dose: Infused Documented By: Admin: 07/21/25 13:44 Dose: 100 mls/hr Documented By: DB Ondansetron HCl (Ondansetron Inj 2 Mg/Ml Inj 2 Ml) 4 mg IVP X1 ONE; Protocol Stop: 07/21/25 13:29 Last Admin: 07/21/25 13:36 Dose: 4 mg Documented By: URSULA See above Consultations Consultation(s) initiated? (list below): Yes Consultation #1 (Physician, Specialty, Details): I spoke with nephrologost Dr. Arredondo. States the patient is followed by fine unhairer Dr. Casas and she is currently covering for him. She advised we give a dose of antibiotics and will see at dialysis center tomorrow. States the dialysis center will call the patient. Time: 13:30 Diagnosis Weakness Differential Diagnosis: anemia, hypoglycemia, sepsis, dehydration and other (hypotension ) Most likely diagnosis given after review of the tests above:: Dehydration ESRD Admission Indicated Admission indicated?: not indicated Admission Request Was there a request for admission?: No Disposition Plan Disposition Plan: Discharge Discharge Attestation Discharge Attestation: The patient and all family members were given an opportunity to ask questions and understood the discharge instructions. Discharge instructions specifically effects, indications for sooner follow up or return to the emergency department, and the expected course of current diagnosis. Patient condition: Stable Discharge Plan Plan Patient Disposition: HOME (Self Care) Patient condition on transfer: Stable Prescriptions/Referrals Prescriptions/Med Rec: New cephalexin 500 mg capsule 500 mg PO TID 10 Days Qty: 30 0RF No Action atorvastatin 40 mg tablet 40 mg PO HS calcium acetate(phosphat bind) 667 mg tablet 667 mg PO TID Xarelto 20 mg tablet 20 mg PO DAILY amlodipine [Norvasc] 10 mg tablet 10 mg PO QDAY Qty: 30 0RF meclizine 25 mg Tablet 25 mg PO TID MDD 100mg PRN (Reason: Vertigo) Qty: 90 0RF acetaminophen [Tylenol] 325 mg Tablet 650 mg PO Q6H PRN (Reason: Mild Pain (Scale Score 1-4)) Rx Instructions: Give 2 tabs Q6HR for mild pain hydralazine 100 mg Tablet 100 mg PO TID insulin glargine [Lantus Solostar U-100 Insulin] 100 unit/mL (3 mL) Insulin Pen 22 unit SUBCUT QPM Rx Instructions: Hold if BS <100 ondansetron HCl 4 mg Tablet 4 mg PO Q6H PRN (Reason: Nausea And Vomiting) carvedilol [Coreg] 3.125 mg Tablet 3.125 mg PO BID Rx Instructions: must administer with a meal/food insulin aspart U-100 100 unit/mL Cartridge 1 sliding scale dose SUBCUT USEASDIRECTD hydrocodone-acetaminophen 5-325 mg tablet 1 tab PO Q6H PRN (Reason: age related osteoporosis) melatonin 5 mg tablet 5 mg PO HS Rx Instructions: Give 2 tablets by mouth at bedtime buspirone 7.5 mg tablet 7.5 mg PO BID omeprazole 20 mg capsule,delayed release(DR/EC) 20 mg PO QDAY simethicone [Gas Relief (simethicone)] 80 mg tablet,chewable 80 mg PO QID PRN (Reason: abdominal distention) ergocalciferol (vitamin D2) 1,250 mcg (50,000 unit) capsule 1,250 mcg PO QMONTH Referrals: No Primary/Family,Physician [Primary Care Provider] - In 1 week Problem List Clinical Impression: Dehydration, ESRD (end stage renal disease) Patient/Caregiver Discharge Instructions Discharge Activity: activity as tolerated Education Materials: Coping with Kidney Failure, Dehydration Additional Instructions: Please call your dialysis center to reschedule so this. Please resume your usual medications and take them as directed Print Language: Georgian Stand Alone Forms: Marilu Award Info., Patient Portal Info Letter
== END 2025-07-21 20:45 | disposition home or self-care (01) ==
PROVIDERS: Emergency Provider Family Medicine
DX: E86.0 Dehydration (principal); E11.22 Type 2 diabetes mellitus with diabetic chronic kidney disease; I12.0 Hypertensive chronic kidney disease with stage 5 chronic kidney disease or end stage renal disease; N18.6 End stage renal disease; E78.5 Hyperlipidemia, unspecified
CPT/HCPCS: 36415; 71045; 80053; 84484; 85025; 85610; 93005; 96361; 96365; 96375; 99284; J0131; J2405; J2543; J7999

== ENCOUNTER 2025-09-01 11:04 | Emergency (ER) | payer MEDICAID, SELFPAY ==
[2025-09-01 11:05] VITALS: PULSE 76; RESP 16; O2SAT 97; BMI 32.1
--- NOTE | 2025-09-01 11:11 | PD.EDADULT ---
ED General RME/HPI General Chief complaint: General Adult/Misc Complain Stated complaint: BLOOD IN STOOL Time Seen by Provider: 09/01/25 11:10 Arrival date/time: 09/01/25 11:04 CC: Bloody stool HPI 1 bloody stool yesterday was informed by healthcare providers as the patient is blind. The patient is on dialysis Thursday and Thursday Dr. Casas is her legal research analyst. Patient wanted to get checked out . EMS reports stable vital signs and route. Patient states she had a complete dialysis session today. Patient denies chest pain shortness of breath difficulty breathing lightheadedness nausea or vomiting. Related Data Home Medications ?Medication ?Instructions ?Recorded ?Confirmed atorvastatin 40 mg tablet 40 mg PO HS 12/10/22 03/28/25 calcium acetate(phosphat bind) 667 667 mg PO TID 12/10/22 03/28/25 mg tablet rivaroxaban 20 mg tablet (Xarelto) 20 mg PO DAILY 12/10/22 03/28/25 Held on 03/31/25. Instructions: decide with PCP if they deem necessary to resume acetaminophen 325 mg tablet 650 mg PO Q6H PRN Mild Pain (Scale 01/10/23 03/28/25 (Tylenol) Score 1-4) hydralazine 100 mg tablet 100 mg PO TID 03/25/23 03/28/25 insulin glargine 100 unit/mL (3 22 unit subcut QPM 03/25/23 03/28/25 mL) subcutaneous pen (Lantus Solostar U-100 Insulin) ondansetron HCl 4 mg tablet 4 mg PO Q6H PRN Nausea And Vomiting 03/25/23 03/28/25 carvedilol 3.125 mg tablet (Coreg) 3.125 mg PO BID 09/02/23 03/28/25 insulin aspart U-100 100 unit/mL 1 sliding scale dose subcut 09/02/23 03/28/25 subcutaneous cartridge USEASDIRECTD buspirone 7.5 mg tablet 7.5 mg PO BID 03/28/25 03/28/25 ergocalciferol (vitamin D2) 1,250 1,250 mcg PO QMONTH 03/28/25 03/28/25 mcg (50,000 unit) capsule hydrocodone 5 mg-acetaminophen 325 1 tab PO Q6H PRN age related 03/28/25 03/28/25 mg tablet osteoporosis melatonin 5 mg tablet 5 mg PO HS 03/28/25 03/28/25 omeprazole 20 mg capsule,delayed 20 mg PO QDAY 03/28/25 03/28/25 release simethicone 80 mg chewable tablet 80 mg PO QID PRN abdominal 03/28/25 03/28/25 (Gas Relief (simethicone)) distention Previous Rx's ?Medication ?Instructions ?Recorded amlodipine 10 mg tablet (Norvasc) 10 mg PO QDAY #30 tabs 12/11/22 meclizine 25 mg tablet 25 mg PO TID PRN Vertigo #90 tabs 12/18/22 Allergies Allergy/AdvReac Type Severity Reaction Status Date / Time levofloxacin Allergy Mild Vomiting Verified 05/01/25 11:42 Review of Systems Review of Systems Narrative Review of Systems: GEN: No fever, no chills, no weight loss EYES: No discharge, no visual changes, no pain HEENT: No ear pain, no congestion, no sore throat PULM: No shortness of breath, no cough, no congestion CV: No chest pain, no dyspnea on exertion, no palpitations GI: No nausea, no vomiting, no diarrhea, no pain, no constipation : No frequency, no urgency, no dysuria MUSC/SKEL: No joint pain, no back pain SKIN: No rash PSYCH: No hallucinations, no depression HEME/LYMPH: No easy bleeding or bruising tendencies NEURO: No weakness, no headache Past Medical History Past Medical History NEUROLOGIC: Positive Neurological Disorders and Cerebrovascular Accident; Negative Seizures CARDIAC: Positive Cardiac Disorders, Angina, Hypercholesterolemia, Congestive Heart Failure and Hypertension RESPIRATORY: Positive Chronic Obstructive Pulmonary Disease (COPD) and Pneumonia; Negative Asthma GASTROINTESTINAL: Negative Gastrointestinal Disorders or Gall Bladder Disease GENITOURINARY: Positive Genitourinary Disorders, Renal Disease and Dialysis REPRODUCTIVE: Positive Previous Pregnancies MUSCULOSKELETAL: Positive Musculoskeletal Disorders, Arthritis, Rheumatoid Arthritis and Osteoporosis ENT: Positive Blind and Deafness ENDOCRINE: Positive Endocrine Disorders and Diabetes Mellitus Type 2; Negative Diabetes Mellitus Type 1 HEMATOLOGIC: Positive Blood Disorders and Anemia; Negative Sickle Cell Disease PSYCHO/SOCIAL: Positive Depression and Anxiety OTHER HISTORY: Positive Hospitalization, Blood Transfusions, Chicken Pox and Measles; Negative Autoimmune Disease, Down Syndrome, Developmental Delay, Shingles, Falls, Blood Transfusion Reaction, Anesthesia Reactions or Cancer Family History FAMILY HISTORY: Positive Family Cardiac Disorders; Negative Family Psychiatric Problems, Family Respiratory Disorders, Family Gastrointestinal Problems, Family Cancer, Family Surgery or Family Anesthesia Reaction Surgical History SURGICAL: Positive Open Reduction Internal Fixation; Negative Mastectomy Social History SMOKING STATUS: Never smoker SUBSTANCE USE: former substance user (quit 2 years ago (nonspecific on what she used)) ED Exam Narrative Physical exam: [General: Obese not in any acute distress Head normocephalic HEENT: Within acceptable limits Neck is supple nontender Chest equal chest rise nontender to palpation Respiratory: Clear to auscultation no wheezes crackles or rubs CV: Rate rhythm is regular no murmurs rubs or clicks Abdomen is distended secondary to body habitus soft nontender no masses positive bowel sounds all 4 quadrants Back: No CVA tenderness no spinous process tenderness from cervical spine thoracic and lumbar spine Skin: Intact no petechiae rash induration ulceration or crepitus Extremities: Moving all extremity against resistance cap refill less than 2 seconds neurosensory intact Neuro: Awake alert oriented x3 Glascow coma 15 no focal deficits] Course Course Course Narrative: Stool is guaiac positive Hemoglobin is within normal limits. Patient's case discussed with Dr. Foster, who agrees patient can be follow-up in the outpatient basis as her hematocrit is not critical. Quality Measures none Orders Category Date Time Status EKG (ED ONLY) *Do not use* NOW Care 09/01/25 11:17 Completed Insert IV NOW Care 09/01/25 11:35 Completed Occult Blood,Stool (Nursing) ONCE Care 09/01/25 12:00 Completed EKG (ED Only) Stat Exams 09/01/25 11:17 Draft Antibody Identification Stat Lab 09/01/25 11:25 Completed B-Type Natriuretic Peptide Stat Lab 09/01/25 11:25 Completed CBC Stat Lab 09/01/25 11:25 Completed Comprehensive Metabolic Panel Stat Lab 09/01/25 11:25 Completed LDH (Lactate Dehydrogenase) Stat Lab 09/01/25 11:25 Completed Magnesium Stat Lab 09/01/25 11:25 Completed Occult Blood, Stool (LAB) Stat Lab 09/01/25 12:00 Completed Partial Thromboplastin Time Stat Lab 09/01/25 11:25 Completed Prothrombin Time with INR Stat Lab 09/01/25 11:25 Completed Type and Screen Stat Lab 09/01/25 11:25 Completed Ondansetron Inj [Zofran Inj] Med 09/01/25 11:43 Discontinued 4 mg IVP X1 ONE Pantoprazole Inj [Protonix Inj] Med 09/01/25 11:18 Discontinued 40 mg IVP X1 ONE Pantoprazole/Ns 80Mg IV Premix [Protonix/NS 80mg IV Med 09/01/25 11:19 Discontinued Premix] 80 mg in 100 ml IV Q10H Potassium Chloride [K-Dur] Med 09/01/25 12:54 Discontinued 40 meq PO X1 ONE Vital Signs Vital signs: Vital Signs Temperature 98.1 F 09/01/25 11:36 Pulse Rate 78 09/01/25 11:36 Respiratory Rate 16 09/01/25 11:36 Blood Pressure 129/78 09/01/25 11:36 Pulse Oximetry (%) 95 09/01/25 11:36 Oxygen Delivery Method Room Air 09/01/25 11:36 Discharge Plan Plan Patient Disposition: HOME (Self Care) Patient condition on transfer: Stable Prescriptions/Referrals Prescriptions/Med Rec: No Action atorvastatin 40 mg tablet 40 mg PO HS calcium acetate(phosphat bind) 667 mg tablet 667 mg PO TID Xarelto 20 mg tablet 20 mg PO DAILY amlodipine [Norvasc] 10 mg tablet 10 mg PO QDAY Qty: 30 0RF meclizine 25 mg Tablet 25 mg PO TID MDD 100mg PRN (Reason: Vertigo) Qty: 90 0RF acetaminophen [Tylenol] 325 mg Tablet 650 mg PO Q6H PRN (Reason: Mild Pain (Scale Score 1-4)) Rx Instructions: Give 2 tabs Q6HR for mild pain hydralazine 100 mg Tablet 100 mg PO TID insulin glargine [Lantus Solostar U-100 Insulin] 100 unit/mL (3 mL) Insulin Pen 22 unit SUBCUT QPM Rx Instructions: Hold if BS <100 ondansetron HCl 4 mg Tablet 4 mg PO Q6H PRN (Reason: Nausea And Vomiting) carvedilol [Coreg] 3.125 mg Tablet 3.125 mg PO BID Rx Instructions: must administer with a meal/food insulin aspart U-100 100 unit/mL Cartridge 1 sliding scale dose SUBCUT USEASDIRECTD hydrocodone-acetaminophen 5-325 mg tablet 1 tab PO Q6H PRN (Reason: age related osteoporosis) melatonin 5 mg tablet 5 mg PO HS Rx Instructions: Give 2 tablets by mouth at bedtime buspirone 7.5 mg tablet 7.5 mg PO BID omeprazole 20 mg capsule,delayed release(DR/EC) 20 mg PO QDAY simethicone [Gas Relief (simethicone)] 80 mg tablet,chewable 80 mg PO QID PRN (Reason: abdominal distention) ergocalciferol (vitamin D2) 1,250 mcg (50,000 unit) capsule 1,250 mcg PO QMONTH Referrals: Kaci Foster MD [Physician, Gastroenterology] - In 1 week No Primary/Family,Physician [Primary Care Provider] - In 1 week Problem List Clinical Impression: GI (gastrointestinal bleed), End-stage renal disease (ESRD) Patient/Caregiver Discharge Instructions Other Activity Instructions:: Follow-up with your primary care doctor get a referral for crm specialist. If there is a worsening of symptoms return to the emergency room for reevaluation. Education Materials: Bleeding Gastrointestinal Print Language: Panamanian Stand Alone Forms: Marilu Award Info., Patient Portal Info Letter PA/VINEET Supervising Physician PA/VINEET Supervising Physician: Jayme Drake ENP [facility] Clinical Information Provided by: patient and EMS [facility] Medical Records additional comments: Review the medical record show the patient has a history of ESRD dialysis Thursday hypertension hyperlipidemia and diabetes past CVA possible thrombosis. Meds/Rx considered, not ordered None Labs/Rad/Tests considered, not ordered None Chronic Illness/Social Conditions Explain: ESRD dialysis hyperlipidemia hypertension diabetes on Xarelto EKG Interpretation EKG #1: EKG Interpretation: EKG performed at 1140 with a ventricular rate of 77 QRS of 84 QTc of 268. Sinus rhythm baseline wander. Labs Labs: interpreted by or Lab(s) Interpretation(s): CBC shows leukopenia no anemia no thrombocytopenia INR shows a PTT of 37.8 PT and INR within acceptable limits Potassium at 2.9 CO2 at 32 BUN is less than 5 creatinine 1.4. No transaminitis or T. bili elevation Medication Administration(s) Medication Administration History Discontinued Medications Pantoprazole Sodium (Protonix/Ns 80mg Iv Premix) 80 mg in 100 mls @ 10 mls/hr IV Q10H OLY Stop: 09/04/25 09:18 Last Infusion: 09/01/25 13:09 Dose: 0 mls/hr Documented By: Admin: 09/01/25 11:35 Dose: 10 mls/hr Documented By: COERY Ondansetron HCl (Ondansetron Inj 2 Mg/Ml Inj 2 Ml) 4 mg IVP X1 ONE; Protocol Stop: 09/01/25 11:44 Last Admin: 09/01/25 11:54 Dose: 4 mg Documented By: URSULA Pantoprazole Sodium (Pantoprazole Inj 40 Mg Vial) 40 mg IVP X1 ONE Stop: 09/01/25 11:19 Last Admin: 09/01/25 11:35 Dose: 40 mg Documented By: COREY Potassium Chloride (Potassium Chloride 20 Meq Tabcr) 40 meq PO X1 ONE Stop: 09/01/25 12:55 Last Admin: 09/01/25 14:13 Dose: 40 meq Documented By: URSULA Comments: MED NOT SCANNING DUE TO DAMAGE BAR CODE, MED VERIFIED WITH ANTONIO REYES
--- NOTE | 2025-09-01 11:17 | EKG_ITS ---
[facility] Test Date: 2025-09-01 Pat Name: IGOR HINES Department: Room: - Gender: Female Race Relations Adviser: : 1965 Requested By: Jayme Mott Order Number: [id number] Reading MD: Jayme Mott Measurements Intervals [place] Rate: 77 P: ND: QRS: -5 QRSD: 84 T: 0 QT: 236 QTc: 268 Interpretive Statements SUPRAVENTRICULAR RHYTHM NONSPECIFIC T-WAVE ABNORMALITY ABNORMAL RHYTHM ECG Compared to ECG 07/21/2025 08:31:09 Supraventricular rhythm now present T-wave abnormality now present Sinus rhythm no longer present /store/[id number]
[2025-09-01] MEDS: PANTOPRAZOLE/NS 80MG IV PREMIX 80 MG/100 ML BAG 10 MG IV (11:35)
[2025-09-01 11:36] VITALS: BP 129/78; PULSE 78; RESP 16; TEMP 36.7; O2SAT 95
[2025-09-01] MEDS: ONDANSETRON INJ 2 MG/ML INJ 2 ML 4 MG IVP (11:54)
[2025-09-01 12:09] LABS: Basophils # (Auto) 0.0 Thou/mm3 (0.0-0.2); Basophils % (Auto) 1 % (0-2.5); Eosinophils # (Auto) 0.0 Thou/mm3 (0.0-0.5); Eosinophils % (Auto) 0 % (0-10); Hematocrit 38.9 % (36.0-46.0); Hemoglobin 12.6 g/dL (12.0-16.0); Immature Granulocytes Auto 0.03 Thou/mm3 (0.00-0.00); Lymphocytes # (Auto) 0.6 Thou/mm3 (1.0-4.8); Lymphocytes % (Auto) 18 % (10-50); Mean Corpuscular HGB Conc 32.4 g/dl (31.0-37.0); Mean Corpuscular Hemoglobin 32.2 pg (25.0-35.0); Mean Corpuscular Volume 100 fL (80-100); Monocytes # (Auto) 0.1 Thou/mm3 (0.0-0.8); Monocytes % (Auto) 4 % (0-12); Neutrophils # (Auto) 2.4 Thou/mm3 (1.8-7.7); Neutrophils % (Auto) 76 % (37-80); Nucleated Red Blood Cell # 0.00 Thou/mm3 (0.00-0.00); Nucleated Red Blood Cell % 0 /100 WBC (0); Platelet Count 152 Thou/mm3 (140-440); RDW Standard Deviation 51.7 fL (36.4-46.3); Red Blood Count 3.91 Miln/mm3 (4.00-5.20); White Blood Count 3.2 Thou/mm3 (3.6-11.0)
[2025-09-01 12:28] LABS: INR 1.1 (0.9-1.3); Partial Thromboplastin Time 37.8 Seconds (22.0-36.0); Prothrombin Time 11.7 Seconds (9.0-12.2)
[2025-09-01 12:50] LABS: Alanine Aminotransferase < 7 U/L (10-49); Albumin, Serum 3.2 gm/dL (3.5-5.0); Albumin/Globulin Ratio 0.6 (1.2-2.2); Alkaline Phosphatase 78 U/L (46-116); Anion Gap 8 (7-16); Aspartate Amino Transferase 27 U/L (0-34); BUN/Creatinine Ratio 4 Ratio (12-20); Bilirubin,Total 0.3 mg/dL (0.3-1.2); Blood Urea Nitrogen < 5 mg/dL (9-23); Calcium 8.1 mg/dL (8.3-10.6); Calcium (Corrected) 8.7 mg/dL (8.5-10.1); Carbon Dioxide 32.0 mMol/L (20.0-31.0); Chloride 97 mMol/L (98-107); Creatinine (Component) 1.4 mg/dL (0.6-1.3); Estimated Creatinine Clearance 40.7 mL/min (>60); Globulin 5.1 gm/dL (2.3-3.5); Glucose 86 mg/dL (74-106); LDH (Lactate Dehydrogenase) 256 U/L (120-246); Magnesium 1.7 mg/dL (1.6-2.6); Osmolality,Calculated 270 (275-295); Potassium 2.9 mMol/L (3.4-5.1); Sodium 137 mMol/L (136-145); Total Protein 8.3 gm/dL (5.7-8.2); eGFR 43 See Note
[2025-09-01 12:58] LABS: OBS Card Lot # 0124; OBS Developer Lot # 0224; OBS Performed By boted; OBS QC OK? Yes; Occult Blood, Stool Positive (Negative)
[2025-09-01 12:59] LABS: B-Type Natriuretic Peptide 140 pg/mL (0-100)
[2025-09-01 14:16] VITALS: BP 119/79; PULSE 77; RESP 16; TEMP 36.7; O2SAT 99
== END 2025-09-01 14:17 | disposition home or self-care (01) ==
PROVIDERS: Registered Nurse General Practice; Emergency Provider Family Medicine
DX: K92.1 Melena (principal); E11.22 Type 2 diabetes mellitus with diabetic chronic kidney disease; I13.2 Hypertensive heart and chronic kidney disease with heart failure and with stage 5 chronic kidney disease, or end stage renal disease; N18.6 End stage renal disease; E78.00 Pure hypercholesterolemia, unspecified; I50.9 Heart failure, unspecified; R94.31 Abnormal electrocardiogram [ECG] [EKG]; Z99.2 Dependence on renal dialysis; Z79.4 Long term (current) use of insulin
CPT/HCPCS: 36415; 80053; 80307; 81001; 82270; 83615; 83735; 83880; 85025; 85610; 85730; 86850; 86870; 86900; 86901; 93005; 96374; 96375; 99283; J2405; J2470; J3490; A9270